=== PATIENT | male | born 1945 | race Caucasian/White ===

== ENCOUNTER 2018-02-05 16:29 | Inpatient (IN) | payer MEDICARE ==
[2018-02-05] MEDS ORDERED: Acetaminophen 325 MG TAB PO PRN (21:08)
[2018-02-05] MEDS ORDERED: Ondansetron HCl/PF 4 MG/2 ML Vial IVP PRN (21:08)
[2018-02-05] MEDS ORDERED: Ondansetron ODT 4 MG TAB PO PRN (21:08)
[2018-02-05 21:23] VITALS: BMI 26.2
--- NOTE | 2018-02-05 21:29 | PDOC.FPRHP ---
- History of Present Illness Chief Complaint: Life vest shocked him History of Present Illness: This is a 72 yo male with a PMH of CHF, HTN, DMII, hypothyroidism, chronic afib who present as a direct admit with a CC of life vest shocking him. Pt reports he had no warning and is vest shocked him during rehab. He had an episode of LOC after the shock. Currently he is not complaining of chest pain. He does report some SOB with associated productive cough. Pt. was recently 02/03 discharged from [facility] in [place] for HUS 2/2 E. coli 157. ED Course: Per report, pt. received Rocephin in the ER as well as some potassium supplementation due to hypokalemia of 2.8. - Allergies/Adverse Reactions Allergies Allergy/AdvReac Type Severity Reaction Status Date / Time No Known Allergies Allergy Verified 02/05/18 20:59 - Home Medications Medication Instructions Recorded Confirmed Type amLODIPine/Atorvastatin [Caduet] 1 tablet PO QPM 05/21/15 02/05/18 History Levemir Flexpen [Levemir FlexPen] 13 unit SC HS 05/23/15 02/05/18 History metFORMIN HCl [metFORMIN HCl ER] 1,000 mg PO BID #0 05/24/15 02/05/18 Rx Aspirin [Aspirin Chewable Tablet] 81 mg PO DAILY #0 tab 05/26/15 02/05/18 Rx Captopril [Capoten] 50 mg PO TID #0 tab 05/26/15 02/05/18 Rx Dronedarone HCl [Multaq] 400 mg PO BID-WM #0 tab 05/26/15 02/05/18 Rx Levothyroxine Sodium [Synthroid] 50 mcg PO 0600 #0 tab 05/26/15 02/05/18 Rx Nitroglycerin [Nitrostat] 0.4 mg SL Q5MIN PRN #0 tab 05/26/15 02/05/18 Rx Repaglinide [Prandin] 2 mg PO TID-WM #0 tab 05/26/15 02/05/18 Rx Levemir Flexpen [Levemir FlexPen] 14 units SC DAILY 02/05/18 02/05/18 History Warfarin Sodium [Coumadin] 2.5 mg PO ASDIR 02/05/18 02/05/18 History Warfarin Sodium [Coumadin] 5 mg PO MWF 02/05/18 02/05/18 History - History PMHx: HTN, CHF, chronic afib, DM II, hypothyroidism, normocytic anemia PSHx: Heart cath FHx: noncontributory Social: Pt. denies smoking, he quit alcohol 10 years ago, denies drugs - Review of Systems General: denies: fever/chills, weight/appetite/sleep changes Eyes: denies: eye pain, vision changes ENT: denies: nasal congestion, rhinorrhea Respiratory: reports: cough, shortness of breath. denies: congestion, exercise intolerance Cardiovascular: reports: edema (Improving from hospital stay). denies: chest pain, palpitation Gastrointestinal: denies: nausea, vomiting, diarrhea, constipation, abdominal pain Genitourinary: denies: incontinence, dysuria Skin: denies: rashes, lesions Musculoskeletal: denies: pain, tenderness Neurological: denies: numbness, syncope Psychological: denies: anxiety, depression - Vital signs BP: 151/72 HR: 66 RR: 20 Tmax: 98.2 Pox: 96% on 2L Wt: 82.69 - Physical Exam Constitutional: NAD, awake, alert and oriented, well developed HEENT: normocephalic and atraumatic, EOMI, MMM Neck: supple, FROM Chest: no-tender to palpation, no lesions Heart: RRR, normal S1/S2, other (bilateral pitting edema to knee) -Heart: 2/6 systolic murmur heard at left sternal border Lungs: no respiratory distress, good air movement, other (Crackles heard in bilateral lung bases) Abdomen: soft, non-tender, bowel sounds present, no masses/distention Musculoskeletal: normal structure, ROM grossly normal Neurological: no focal deficit, CN II-XII intact Skin: capillary refill <2 seconds, other (raised lesion on left forearm) Heme/Lymphatic: no unusual bruising or bleeding, no purpura Psychiatric: normal mood and affect, good judgment and insight, intact recent and remote memory FMR H&P: Results - Labs Result Diagrams: 02/05/18 22:07 FMR H&P: A/P - Problem List (1) Chronic a-fib Current Visit: Yes Status: Acute Code(s): I48.2 - CHRONIC ATRIAL FIBRILLATION (2) Productive cough Current Visit: Yes Status: Acute Code(s): R05 - COUGH (3) CHF (congestive heart failure) Current Visit: Yes Status: Acute Code(s): I50.9 - HEART FAILURE, UNSPECIFIED (4) DMII (diabetes mellitus, type 2) Current Visit: Yes Status: Acute (5) Hypothyroidism Current Visit: Yes Status: Acute Code(s): E03.9 - HYPOTHYROIDISM, UNSPECIFIED (6) HTN (hypertension) Current Visit: Yes Status: Acute Code(s): I10 - ESSENTIAL (PRIMARY) HYPERTENSION (7) Normocytic anemia Current Visit: Yes Status: Acute Code(s): D64.9 - ANEMIA, UNSPECIFIED - Plan This is a 72 yo male with a PMH of CHF, HTN, DMII, hypothyroidism, chronic afib Chronic afib with run of vfib s/p life vest defibrillation -Admit to Tele. Consult Dr. Mercado in the AM. Pending INR and continuing home warfarin. Pt. is currently NSR in the 60s. Productive Cough Likely CHF vs HAP -Pt. was discharged from hospital 2 days ago. There is some concern for HAP however pt. has crackle in bilateral lung bases consistent with fluid overload. We are obtaining procalcitonin, CXR, and BNP. We will adjust treatment course based on labs and change in clinical picture. We are currently giving 40 lasix once. EF was 20-25 at last echo DMII -Continue home meds, ACHS accuchecks, SSI mild HTN -Continue home meds Hypothyroidism -Continue home meds, we are getting a TSH Normocytic anemia -Aware, will monitor. AM CBC Hypokalemia -Likely 2/2 lasix, repeating labs and supplementing Hypomagnemia -Repeating labs and supplementing Code: Full Prophylaxis: none Family: none at bedside Disposition: home in 1-2 days FMR H&P: Upper Level - Pertinent history 72 yo WM PMH HFrEF (20-25%), CAD, HTN, HLD, and recent ETEC 0157 E. coli infection with HUS and multiorgan failure treated at [facility] in [place]. He was d/c to SNF on 02/03/18. Presents as transfer from outside hospital after he was found down at SNF. Patient complained of LifeVest firing. Interrogation of lifevest revealed 30 seconds of v-fib followed by shock. He was transferred to higher level of care for evaluation for AICD placement. He was also found to have bilateral PNA vs fluid on CXR. Currently reports sputum production and cough. - Pertinent findings Vitals: WNL except BP 151/72 and SpO2 98%/2L. GEN: NAD CV: RRR no murmur, Pulm: crackles lung bases bilaterally, normal effort Extremities: 1+ edema to midcalf, Labs: Outside labs reviewed: Trop 0.22 x2, WBC 13.4, K 2.8, Mg 1.6, CXR: report reviewed but images unavailable - Plan Date/Time: 02/05/182121 I, Yonatan Smith MD, have evaluated this patient and agree with findings/plan as outlined by automotive internet sales consultant resident. Pertinent changes/additions are listed here. 1. V-fib s/p Life Vest cardioversion- monitor tele overnight, continue lifevest , consult cardiology in morning for further evaluation, will start amiodarone if has recurrent runs of v-fib/v-tach, 2. Acute on Chronic HFrEF- fluid restrict, repeat labs, repeat EKG, repeat CXR, Lasix 40 mg IVP, 3. Possible HAP- check procalcitonin, repeat CBC, consider abx coverage pending result of labs 4. CAD- home meds, tele, cards consult 5. DM- home meds, ACHS checks, SSI 6. CKD- repeat BMP, monitor 7. Diet: HH, fluid restrict 1800 mL/day, NPO at 0000, 8. Code: Full Discussed with Dr. Reynolds. Attending Addendum - Attending Addendum Date/Time: 02/05/18 0725 I personally evaluated the patient and discussed the management with Dr. Daley /Luis. I agree with the History, Examination, Assessment and Plan documented above with any addition or exceptions noted below. Patient is 72 yo M with PMHx sCHF with EF 20-25% per patient, T2DM, cAfib, HTN, Hypothyroidism who is presenting as transfer from outside hospital after a discharge of his Life Vest. Patient recently discharged from hospital in [place] for which he was treated for HUS due to E. coli per the patient. He was also diagnosed with sCHF during that hospitalization which appears to be somewhat new since his last heart cath at this institution in 2016 showed normal EF. Patient was at rehab facility this morning talking to on the phone when he had LOC and staff noted a discharge of his life vest. Interrogation confirmed that patient had episode of Vfib which led to the discharge of the Life Vest. Currently, patient denies any complaints. Reports that he does not remember the event, and denies any preceding chest pain, palpitations. Reports that he feels significantly better at this time than he did during previous hospitalization. On exam, he has mild edema in b/l LE and has crackles b/l lower lung hall. Heart is RRR on auscultation, and telemetry strip shows what appears to be NSR. Labs have been repeated here and shows mild Cr elevation, indeterminate troponin , and elevated BNP. Procalcitonin is 0.18, and repeat CXR pending. Patient has been admitted to telemetry for episode of Vfib s/p external defibrillation. This is likely due to ventricular ectopy associated with his sCHF. His sample sewer, Dr. Mercado, will be consulted in the AM unless he has a recurrent abnormal rhythm overnight. Continue heart failure meds at current time and adjust as needed to maximally medically optimize. Consider addition of Aldactone prior to discharge as patient did have hypokalemia at OSH that could precipitate dysrhythmias. Will check electrolytes and replete as needed. Repeating CXR, but with low PCT, do not have high suspicion for PNA. Will diurese as he appears mildly volume overloaded. Further mgmt per clinical course , but anticipate >2 days hospitalization.
[2018-02-05] MEDS ORDERED: Nitroglycerin 0.4 MG TAB (25 Tab Bottle) SL PRN (21:41)
[2018-02-05] MEDS ORDERED: Furosemide 40 MG/4 ML VIAL SLOW IVP SCH (21:45)
[2018-02-05] MEDS ORDERED: Dextrose 50% Abboject 50 ML SYRINGE SLOW IVP PRN (22:13)
[2018-02-05] MEDS ORDERED: Dextrose 5% in Water 1,000 ML IV PRN (22:13)
[2018-02-05 22:29] LABS: INR-International Normal Ratio 1.3; Prothrombin Time 15.8 SEC (12.0-14.7)
[2018-02-05 22:37] LABS: Anion Gap 16 mmol/L (10-20); BUN (Urea Nitrogen) 39 mg/dL (8.4-25.7); Calc. Creatinine Clearance 47 mL/min (70-130); Calcium 8.8 mg/dL (7.8-10.44); Carbon Dioxide 33 mmol/L (23-31); Chloride 93 mmol/L (98-107); Estimated GFR-MDRD 41; Glucose 195 mg/dL (83-110); Potassium 3.5 mmol/L (3.5-5.1); Sodium 138 mmol/L (136-145)
[2018-02-05 22:44] LABS: CKMB 1.6 ng/mL (0-6.6); Troponin I 0.171 ng/mL (< 0.028)
[2018-02-05] MEDS ORDERED: Benzonatate 100 MG CAP PO PRN (22:55)
[2018-02-05] MEDS ORDERED: Magnesium 2 GM/50 ML 2 GM in Premix Bag 1 BAG IVPB SCH (23:00)
[2018-02-06] MEDS: Levothyroxine Sodium 50 MCG TAB PO SCH (05:20)
--- NOTE | 2018-02-06 05:54 | PDOC.FM ---
- Subjective Subjective: Mr. Damian is resting comfortably in bed without complaints at this time. He denies shortness of breath, chest pain, or palpitations. He does report weakness from previous hospitalization. - Objective Vital Signs & Weight: Vital Signs (12 hours) Temp Pulse Resp BP BP Pulse Ox 02/06/18 04:43 98.0 F 62 14 147/67 H 93 L 02/05/18 23:16 96 02/05/18 20:33 98.2 F 66 20 151/72 H 96 Weight Weight 81.737 kg I&O: 02/04/18 02/05/18 02/06/18 06:59 06:59 06:59 Intake Total 410 Output Total 875 Balance -465 Result Diagrams: 02/06/18 05:28 <Angel Dsouza - Last Filed: 02/06/18 09:08> - Objective Vital Signs & Weight: Vital Signs (12 hours) Temp Pulse Pulse Pulse Resp BP BP 02/06/18 11:30 64 80 145/67 H 02/06/18 11:02 68 74 140/64 02/06/18 08:59 61 130/62 02/06/18 07:25 97.5 F L 61 20 02/06/18 04:43 98.0 F 62 14 BP BP BP Pulse Ox Pulse Ox 02/06/18 11:30 147/67 H 02/06/18 11:02 141/64 H 92 L 02/06/18 08:59 02/06/18 07:25 130/62 98 02/06/18 04:43 147/67 H 93 L Weight Weight 81.737 kg I&O: 02/05/18 02/06/18 02/07/18 06:59 06:59 06:59 Intake Total 410 Output Total 875 Balance -465 Result Diagrams: 02/06/18 05:28 <Rae Martinez - Last Filed: 02/06/18 15:01> Phys Exam - Physical Examination Constitutional: NAD HEENT: moist MMs Respiratory: no wheezing, no rales, no rhonchi, clear to auscultation bilateral Cardiovascular: RRR, no significant murmur, no rub Gastrointestinal: soft, non-tender, no distention Musculoskeletal: pulses present, edema present Neurological: non-focal, normal sensation, moves all 4 limbs Psychiatric: normal affect Skin: no rash <Angel Dsouza - Last Filed: 02/06/18 09:08> Dx/Plan (1) Chronic a-fib Code(s): I48.2 - CHRONIC ATRIAL FIBRILLATION Status: Acute (2) CHF (congestive heart failure) Code(s): I50.9 - HEART FAILURE, UNSPECIFIED Status: Acute (3) DMII (diabetes mellitus, type 2) Status: Acute (4) HTN (hypertension) Code(s): I10 - ESSENTIAL (PRIMARY) HYPERTENSION Status: Acute (5) Hypothyroidism Code(s): E03.9 - HYPOTHYROIDISM, UNSPECIFIED Status: Acute (6) Normocytic anemia Code(s): D64.9 - ANEMIA, UNSPECIFIED Status: Acute (7) Hypokalemia Code(s): E87.6 - HYPOKALEMIA Status: Acute (8) Hypomagnesemia Code(s): E83.42 - HYPOMAGNESEMIA Status: Acute (9) Physical deconditioning Code(s): R53.81 - OTHER MALAISE Status: Acute - Plan Plan: Chronic afib with run of vfib s/p life vest defibrillation -NSR overnight, continue to monitor on tele -Consult cardiology today -Subtherapeutic INR, hold warfarin for now, await cards recs. Productive Cough Likely CHF vs HAP -Pt. was discharged from hospital 2 days ago. -procalcitonin neg - CXR pending -BNP elevated -s/p 40 lasix once - EF was 20-25 at last echo DMII -Continue home meds, ACHS accuchecks, SSI mild HTN -Continue home meds Hypothyroidism -Continue home meds, TSH in range Normocytic anemia -Aware, will monitor. AM CBC Hypokalemia -Likely 2/2 lasix, repeating labs and supplementing Hypomagnemia -Repeating labs and supplementing Deconditioning - recent extensive hospitalization - begin walking program dispo: consult cards today, continue to monitor on telemetry <Angel Dsouza - Last Filed: 02/06/18 09:08> Attending Addendum - Attending Addendum Date/Time: 02/06/18 7186 I personally evaluated the patient and discussed the management with Dr. Dsouza I agree with the History, Examination, Assessment and Plan documented above with any addition or exceptions noted below- Patient denies any complaints currently. No further shocks. Afebrile VSS. A/P: 1) V-fib s/p shock from lifevest- Cardiology and EP consult for further evaluation. 2) H/o A-fib- currently in sinus rhythm; continue home meds. 3) Hypokalemia- replace K+. 4) Hypothyroidism- continue home med. <Rae Martinez - Last Filed: 02/06/18 15:01>
[2018-02-06 05:56] LABS: Anion Gap 13 mmol/L (10-20); BUN (Urea Nitrogen) 37 mg/dL (8.4-25.7); Calc. Creatinine Clearance 48 mL/min (70-130); Calcium 8.6 mg/dL (7.8-10.44); Carbon Dioxide 35 mmol/L (23-31); Chloride 93 mmol/L (98-107); Estimated GFR-MDRD 42; Glucose 135 mg/dL (83-110); Potassium 3.3 mmol/L (3.5-5.1); Sodium 138 mmol/L (136-145)
--- NOTE | 2018-02-06 08:25 | RAD ---
PORTABLE CHEST: Date: 02/05/18 HISTORY: Shortness of breath. Assess for pneumonia. COMPARISON: 05/29/13. FINDINGS: Heart size upper normal and stable. There is opacity in both lung bases obscuring the CP angles. Find ings suggest small effusions and bibasilar atelectasis or infiltrates. The mid and upper lung hall appear clear. Vascular markings upper normal. IMPRESSION: Evidence of small bilateral effusions and bibasilar atelectasis or infiltrates. POS: [facility]
[2018-02-06] MEDS: Dronedarone HCl 400 MG TAB PO SCH ×2 (08:59→16:09)
[2018-02-06] MEDS: Potassium Chloride 20 MEQ TAB PO SCH ×2 (08:59→16:09)
[2018-02-06] MEDS: guaiFENesin ER 600 MG TAB PO SCH ×2 (09:00→19:59)
[2018-02-06] MEDS: metFORMIN XR 500 MG TAB PO SCH ×2 (09:00→19:55)
[2018-02-06] MEDS ORDERED: LEVEMIR SC SCH (09:00)
[2018-02-06] MEDS: Insulin Glargine 14 UNITS in Pre-Filled Syringe 1 EACH SC SCH (09:01)
[2018-02-06] MEDS: HumaLOG 300 UNITS/3 ML VIAL SC PRN ×2 (12:41→17:50)
[2018-02-06] MEDS: Amlodipine 10 MG TAB PO SCH (19:56)
[2018-02-06] MEDS: Atorvastatin Calcium 40 MG TAB PO SCH (19:57)
[2018-02-06] MEDS: Insulin Glargine 13 UNITS in Pre-Filled Syringe 1 EACH SC SCH (20:06)
--- NOTE | 2018-02-06 20:12 | CON ---
HISTORY: The patient is a 72-year-old gentleman with a history of coronary artery disease who recently developed severe E. coli sepsis and had a LifeVest placed, which yesterday fired. The patient was seen in 2015 and was found to have a severe blockage in his proximal LAD. The patient subsequently underwent PTCA and stent placement. The patient has subsequently done well. He has been free of chest discomfort. He has had a followup echocardiogram in 03/2017, which revealed normal left ventricular systolic function. The patient also has a history of atrial fibrillation and is on chronic anticoagulation therapy. The patient was in his usual state of health when he developed a severe Escherichia coli sepsis. The patient developed renal failure and a cardiomyopathy. The patient had a prolonged hospitalization including renal failure, which nearly required dialysis. The patient recovered from this. He was noted to have a decreased left ventricular function and a ZOLL LifeVest was placed. The patient went home and yesterday the defibrillator fired. The patient denied having any chest discomfort or palpitations. PAST MEDICAL HISTORY: 1. Coronary artery disease. 2. Cardiomyopathy. 3. Atrial fibrillation. 4. Hypertension. 5. Atrial fibrillation. 6. Cerebrovascular disease. 7. Diabetes mellitus. 8. Gout. 9. Thyroid disorder. PAST SURGICAL HISTORY: None. SOCIAL HISTORY: Nonsmoker. FAMILY HISTORY: Positive family history of coronary artery disease. ALLERGIES: No known drug allergies. MEDICATIONS: Metformin 1000 b.i.d., Caduet 10/40 daily, Coumadin 2.5 at bedtime , warfarin alternating with 5 mg, Prandin 2 t.i.d., Synthroid 50 daily, Multaq 400 b.i.d. and aspirin 81 daily. REVIEW OF SYSTEMS: Noticeable for weakness and dyspnea. PHYSICAL EXAMINATION: GENERAL: This is a well-developed gentleman in no acute distress. VITAL SIGNS: Blood pressure was 141/64. NECK: No jugular distention, no carotid bruits. LUNGS: Clear to auscultation. HEART: Regular rate and rhythm, normal S1, S2 with a 2/6 murmur. ABDOMEN: Nondistended. EXTREMITIES: Showed trace edema. LABORATORY: Sodium 138, potassium 3.5, chloride 93, bicarbonate 33, BUN 39, creatinine 1.67. Glucose 242. INR was 1.3. EKG revealed normal sinus rhythm with first degree AV block, nonspecific ST-T wave abnormality. His white blood count was 13.7, hemoglobin 9.5, hematocrit 29.2 and his platelets were 316. IMPRESSION: 1. Status post AICD firing. 2. Cardiomyopathy. 3. History of percutaneous transluminal coronary angioplasty and stent placement. 4. History of hypertension. 5. Severe E. coli sepsis. 6. Diabetes mellitus. This unfortunate gentleman. This gentleman has developed a severe cardiomyopathy since he had a recent and prolonged episode of septic shock. The patient had a LifeVest placed which fired as he went into ventricular fibrillation. From a cardiac standpoint, we will ask EP to evaluate. We will follow this patient with you through his hospitalization. LUCI
[2018-02-06] MEDS ORDERED: Non-Formulary Item 1 EACH (Amlodipine/Atorvastatin [Caduet] 1 TABLET) PO SCH (21:00)
[2018-02-06] MEDS ORDERED: INSULIN DETEMIR SC SCH (21:00)
[2018-02-07] MEDS: Levothyroxine Sodium 50 MCG TAB PO SCH (06:02)
[2018-02-07 06:15] LABS: Anion Gap 15 mmol/L (10-20); BUN (Urea Nitrogen) 35 mg/dL (8.4-25.7); Calc. Creatinine Clearance 69 mL/min (70-130); Calcium 8.6 mg/dL (7.8-10.44); Carbon Dioxide 32 mmol/L (23-31); Chloride 97 mmol/L (98-107); Estimated GFR-MDRD 38; Glucose 114 mg/dL (83-110); Potassium 3.8 mmol/L (3.5-5.1); Sodium 140 mmol/L (136-145)
--- NOTE | 2018-02-07 06:21 | PDOC.FM ---
- Subjective Subjective: Mr. Damian is resting comfortably in bed with his present. He has no complaints and has been ambulating frequently. Cardiology told him that they were going to get an echo, cath, and consult EP. He denies cough, SOB, or CP - Objective Vital Signs & Weight: Vital Signs (12 hours) Temp Pulse Resp BP BP Pulse Ox 02/07/18 04:00 98.3 F 117 H 20 134/76 95 02/06/18 19:59 81 130/62 02/06/18 19:56 81 130/62 02/06/18 19:50 98.1 F 81 18 130/62 95 Weight Weight 127.051 kg I&O: 02/05/18 02/06/18 02/07/18 06:59 06:59 06:59 Intake Total 410 1210 Output Total 875 1175 Balance -465 35 Result Diagrams: 02/07/18 05:07 02/07/18 05:07 <Angel Dsouza - Last Filed: 02/07/18 09:09> - Objective Vital Signs & Weight: Vital Signs (12 hours) Temp Pulse Resp BP BP BP Pulse Ox 02/07/18 20:15 68 129/67 02/07/18 16:15 98.6 F 68 16 145/65 H 94 L 02/07/18 12:41 98.6 F 70 17 117/59 L 96 02/07/18 09:19 69 02/07/18 09:12 98.8 F 69 17 147/68 H 95 Weight Weight 127.051 kg I&O: 02/06/18 02/07/18 02/08/18 06:59 06:59 06:59 Intake Total 410 1210 1200 Output Total 875 1175 1150 Balance -465 35 50 Result Diagrams: 02/07/18 05:07 02/07/18 05:07 <Rae Martinez - Last Filed: 02/07/18 21:15> Phys Exam - Physical Examination Constitutional: NAD HEENT: moist MMs Respiratory: no wheezing, no rales, no rhonchi, clear to auscultation bilateral Cardiovascular: RRR, no significant murmur, no rub Gastrointestinal: soft, non-tender, no distention Musculoskeletal: no edema, pulses present Neurological: non-focal Psychiatric: normal affect Skin: no rash <Angel Dsouza - Last Filed: 02/07/18 09:09> Dx/Plan (1) Chronic a-fib Code(s): I48.2 - CHRONIC ATRIAL FIBRILLATION Status: Acute (2) CHF (congestive heart failure) Code(s): I50.9 - HEART FAILURE, UNSPECIFIED Status: Acute (3) DMII (diabetes mellitus, type 2) Status: Acute (4) HTN (hypertension) Code(s): I10 - ESSENTIAL (PRIMARY) HYPERTENSION Status: Acute (5) Hypothyroidism Code(s): E03.9 - HYPOTHYROIDISM, UNSPECIFIED Status: Acute (6) Normocytic anemia Code(s): D64.9 - ANEMIA, UNSPECIFIED Status: Acute (7) Hypokalemia Code(s): E87.6 - HYPOKALEMIA Status: Resolved (8) Hypomagnesemia Code(s): E83.42 - HYPOMAGNESEMIA Status: Resolved (9) Physical deconditioning Code(s): R53.81 - OTHER MALAISE Status: Acute - Plan Plan: Chronic afib with run of vfib s/p life vest defibrillation -NSR overnight, continue to monitor on tele -Consult EP today -Subtherapeutic INR, hold warfarin for now, await cards recs. Productive Cough Likely CHF vs HAP -Pt. was discharged from hospital 2 days ago. -procalcitonin neg - CXR effusions vs infiltrates -BNP elevated -s/p 40 lasix once - EF was 20-25 at last echo - symptoms improved, most likely atelectasis - incentive spirometry DMII -Continue home meds, ACHS accuchecks -increase ss to moderate HTN -Continue home meds Hypothyroidism -Continue home meds, TSH in range Normocytic anemia -Aware, will monitor. AM CBC Elevated BUN/Cr - likely secondary to recent hosp. for HUS e. coli - daily BMP to monitor Hypokalemia, resolved -Likely 2/2 lasix, supplemented Hypomagnemia, resolved Deconditioning - recent extensive hospitalization - begin walking program dispo: consult EP today, order IS, continue to monitor on telemetry <Angel Dsouza - Last Filed: 02/07/18 09:09> Attending Addendum - Attending Addendum Date/Time: 02/07/182110 I personally evaluated the patient and discussed the management with Dr. Dsouza I agree with the History, Examination, Assessment and Plan documented above with any addition or exceptions noted below- Patein5 without complaints. Denies any chest pain. Afebrile VSS. A/P: 1) V-fib- no further episodes. Plan for EP consult. Appreciate cardiology assistance. 2) HFrEF- continue current meds. 3) DM- continue current meds. <Rae Martinez - Last Filed: 02/07/18 21:15>
[2018-02-07 07:30] LABS: #Basophils 0.1 thou/uL (0.0-0.2); #Eosinphils 0.3 thou/uL (0.0-0.7); #Lymphocytes 1.9 thou/uL (1.20-3.40); #Neutrophils 6.5 thou/uL (1.40-6.50); %Basophils 0.7 % (0.0-1.0); %Eosinophils 3.5 % (0.0-10.0); %Lymphocytes 19.7 % (21.0-51.0); %Monocytes 9.7 % (0.0-10.0); %Neutrophils 66.3 % (42.0-75.0); Hemoglobin 8.7 g/dL (14.0-18.0); Mean Corpuscular HGB CONC 30.9 g/dL (32.0-36.0); Mean Corpuscular Hemoglobin 29.8 pg (27.0-31.0); Mean Corpuscular Volume 96.7 fL (78.0-98.0); Mean Platelet Volume 8.5 fL (7.4-10.4); Platelet Count 364 thou/uL (130-400); RBC Distribution Width 14.2 % (11.5-14.5); Red Blood Cell (RBC) Count 2.92 mill/uL (4.70-6.10); White Blood Cell (WBC) Count 9.8 thou/uL (4.8-10.8)
[2018-02-07] MEDS: guaiFENesin ER 600 MG TAB PO SCH ×2 (09:19→20:15)
[2018-02-07] MEDS: Potassium Chloride 20 MEQ TAB PO SCH ×2 (09:20→16:22)
[2018-02-07] MEDS: Dronedarone HCl 400 MG TAB PO SCH (09:20)
[2018-02-07] MEDS: Insulin Glargine 14 UNITS in Pre-Filled Syringe 1 EACH SC SCH (09:25)
[2018-02-07] MEDS ORDERED: Insulin Regular 300 UNITS/3 ML VIAL SC PRN (09:41)
[2018-02-07] MEDS: metFORMIN XR 500 MG TAB PO SCH ×2 (09:59→21:56)
[2018-02-07] MEDS: Insulin Regular 300 UNITS/3 ML VIAL SC PRN (12:36)
[2018-02-07] MEDS: Carvedilol 6.25 MG TAB PO SCH (16:21)
[2018-02-07] MEDS: Amiodarone 200 MG TAB PO SCH (20:15)
[2018-02-07] MEDS: Atorvastatin Calcium 40 MG TAB PO SCH (20:15)
[2018-02-07] MEDS: Amlodipine 10 MG TAB PO SCH (20:15)
[2018-02-07] MEDS: Insulin Glargine 13 UNITS in Pre-Filled Syringe 1 EACH SC SCH (21:25)
--- NOTE | 2018-02-08 05:59 | PDOC.FM ---
- Subjective Subjective: Mr. Damian is resting comfortably in bed, he reports frequent ambulation and has no complaints. He denies chest pain, shortness of breath or palpitations. He reports that Cardiology would like to defer his [facility] to a future date considering his current kidney function. - Objective Vital Signs & Weight: Vital Signs (12 hours) Temp Pulse Resp BP BP Pulse Ox 02/08/18 04:00 98.1 F 68 20 113/59 L 92 L 02/07/18 20:15 68 129/67 02/07/18 19:50 95 02/07/18 19:45 98.4 F 68 16 129/67 95 Weight Weight 127.051 kg I&O: 02/06/18 02/07/18 02/08/18 06:59 06:59 06:59 Intake Total 410 1210 1200 Output Total 875 1175 1150 Balance -465 35 50 Result Diagrams: 02/07/18 05:07 02/08/18 05:17 <Angel Dsouza - Last Filed: 02/08/18 08:09> - Objective Vital Signs & Weight: Vital Signs (12 hours) Temp Pulse Resp BP BP BP Pulse Ox 02/08/18 12:00 97.9 F 55 L 18 136/61 92 L 02/08/18 10:41 140/62 02/08/18 09:07 140/62 02/08/18 08:00 98.5 F 74 18 140/62 94 L 02/08/18 04:00 98.1 F 68 20 113/59 L 92 L Weight Weight 82.146 kg I&O: 02/07/18 02/08/18 02/09/18 06:59 06:59 06:59 Intake Total 1210 1330 240 Output Total 1175 1575 Balance 35 -245 240 Result Diagrams: 02/08/18 12:36 02/08/18 12:36 <Rae Martinez - Last Filed: 02/08/18 15:11> Phys Exam - Physical Examination Constitutional: NAD HEENT: moist MMs Respiratory: clear to auscultation bilateral Cardiovascular: RRR, no significant murmur, no rub Gastrointestinal: non-tender, no distention Musculoskeletal: pulses present, edema present (minor, similar to previous days ) Neurological: moves all 4 limbs Psychiatric: normal affect Skin: no rash, normal turgor <Angel Dsouza - Last Filed: 02/08/18 08:09> Dx/Plan (1) Chronic a-fib Code(s): I48.2 - CHRONIC ATRIAL FIBRILLATION Status: Acute (2) CHF (congestive heart failure) Code(s): I50.9 - HEART FAILURE, UNSPECIFIED Status: Acute (3) DMII (diabetes mellitus, type 2) Status: Acute (4) HTN (hypertension) Code(s): I10 - ESSENTIAL (PRIMARY) HYPERTENSION Status: Acute (5) Hypothyroidism Code(s): E03.9 - HYPOTHYROIDISM, UNSPECIFIED Status: Acute (6) Normocytic anemia Code(s): D64.9 - ANEMIA, UNSPECIFIED Status: Acute (7) Hypokalemia Code(s): E87.6 - HYPOKALEMIA Status: Resolved (8) Hypomagnesemia Code(s): E83.42 - HYPOMAGNESEMIA Status: Resolved (9) Physical deconditioning Code(s): R53.81 - OTHER MALAISE Status: Acute - Plan Plan: Chronic afib with run of vfib s/p life vest defibrillation -NSR overnight, continue to monitor on tele -Left heart cath deferred to a future date -Subtherapeutic INR, hold warfarin for now, await cards recs. Productive Cough Likely CHF vs HAP -Pt. was discharged from hospital 2 days ago. -procalcitonin neg - CXR effusions vs infiltrates -BNP elevated -s/p 40 lasix once - EF was 20-25 at last echo - symptoms improved, most likely atelectasis - incentive spirometry DMII -Continue home meds, ACHS accuchecks -moderate SS HTN -Continue home meds Hypothyroidism -Continue home meds, TSH in range Normocytic anemia -Aware, will monitor. AM CBC Elevated BUN/Cr - likely secondary to recent hosp. for HUS e. coli - daily BMP to monitor Hypokalemia, resolved -Likely 2/2 lasix, supplemented Hypomagnemia, resolved Deconditioning - recent extensive hospitalization - begin walking program dispo: EP to evaluate today, possible AICD insertion tomorrow, continue to monitor on telemetry <Angel Dsouza - Last Filed: 02/08/18 08:09> Attending Addendum - Attending Addendum Date/Time: 02/08/18 0103 I personally evaluated the patient and discussed the management with Dr. Dsouza I agree with the History, Examination, Assessment and Plan documented above with any addition or exceptions noted below- Pateint without complaints. No chest pain or palpitations. Afebrile VSS. A/P: 1) V-fib s/p chock by lifevest- no further episodes of v-fib. EP consult placed and awaiting recommendations. 2 ) HFrEF- no evidence of overload at this time. May actually be volume depleted as evidenced by increased Creatinine. Hold lasix and captopril for now. 3) LEILANI - will hold carito, lasix, and metformin. Will give some gentle fluids and minotr ling exam and BMP. 4) Dm- controlled; continue sliding scale. <Rae Martinez - Last Filed: 02/08/18 15:11>
[2018-02-08] MEDS: Levothyroxine Sodium 50 MCG TAB PO SCH (06:06)
[2018-02-08 06:18] LABS: Anion Gap 13 mmol/L (10-20); BUN (Urea Nitrogen) 32 mg/dL (8.4-25.7); Calc. Creatinine Clearance 41 mL/min (70-130); Calcium 8.7 mg/dL (7.8-10.44); Carbon Dioxide 30 mmol/L (23-31); Chloride 101 mmol/L (98-107); Estimated GFR-MDRD 34; Glucose 123 mg/dL (83-110); Potassium 4.7 mmol/L (3.5-5.1); Sodium 139 mmol/L (136-145)
[2018-02-08] MEDS: Potassium Chloride 20 MEQ TAB PO SCH ×2 (09:06→17:58)
[2018-02-08] MEDS: Amiodarone 200 MG TAB PO SCH ×2 (09:06→20:21)
[2018-02-08] MEDS: metFORMIN XR 500 MG TAB PO SCH (09:06)
[2018-02-08] MEDS: guaiFENesin ER 600 MG TAB PO SCH ×2 (09:06→20:21)
[2018-02-08] MEDS: Carvedilol 6.25 MG TAB PO SCH ×2 (09:07→17:58)
[2018-02-08] MEDS: Insulin Glargine 14 UNITS in Pre-Filled Syringe 1 EACH SC SCH (09:07)
[2018-02-08] MEDS ORDERED: Carvedilol 6.25 MG TAB PO SCH (10:30)
[2018-02-08] MEDS ORDERED: Lactated Ringer's 250 ML IV SCH ×2 (10:45→11:00)
[2018-02-08] MEDS ORDERED: CEFAZOLIN/Water 2 GM/20 ML SYRINGE SLOW IVP SCH (12:30)
[2018-02-08 12:51] LABS: #Basophils 0.1 thou/uL (0.0-0.2); #Eosinphils 0.4 thou/uL (0.0-0.7); #Lymphocytes 1.8 thou/uL (1.20-3.40); #Monocytes 0.9 thou/uL (0.11-0.59); #Neutrophils 7.6 thou/uL (1.40-6.50); %Basophils 0.7 % (0.0-1.0); %Eosinophils 3.4 % (0.0-10.0); %Lymphocytes 16.7 % (21.0-51.0); %Monocytes 8.1 % (0.0-10.0); %Neutrophils 71.2 % (42.0-75.0); Hemoglobin 8.9 g/dL (14.0-18.0); Mean Corpuscular HGB CONC 30.7 g/dL (32.0-36.0); Mean Corpuscular Volume 97.8 fL (78.0-98.0); Mean Platelet Volume 8.6 fL (7.4-10.4); Platelet Count 409 thou/uL (130-400); RBC Distribution Width 14.1 % (11.5-14.5); Red Blood Cell (RBC) Count 2.98 mill/uL (4.70-6.10); White Blood Cell (WBC) Count 10.7 thou/uL (4.8-10.8)
[2018-02-08] MEDS: Insulin Regular 300 UNITS/3 ML VIAL SC PRN (13:02)
[2018-02-08 13:04] LABS: Anion Gap 14 mmol/L (10-20); BUN (Urea Nitrogen) 28 mg/dL (8.4-25.7); Calc. Creatinine Clearance 41 mL/min (70-130); Calcium 8.6 mg/dL (7.8-10.44); Carbon Dioxide 27 mmol/L (23-31); Chloride 101 mmol/L (98-107); Estimated GFR-MDRD 35; Glucose 184 mg/dL (83-110); Potassium 5.1 mmol/L (3.5-5.1); Sodium 137 mmol/L (136-145)
[2018-02-08] MEDS ORDERED: Communication Order-Pharmacy FS SCH (17:00)
--- NOTE | 2018-02-08 18:56 | CON ---
DATE OF CONSULTATION: 02/08/2018 ELECTROPHYSIOLOGY CONSULTATION REQUESTING PHYSICIAN: Dr. Mercado. REASON FOR REQUEST: Ventricular fibrillation. HISTORY OF PRESENT ILLNESS: Mr. Damian is a 72-year-old gentleman with history of coronary artery disease, status post previous stenting, history of stroke, paroxysmal atrial arrhythmia, hypertension , diabetes, who was admitted to the hospital after his LifeVest had fired. He was hospitalized elsew here for a severe infection including E. coli and cardiac arrest. A LifeVest was placed at that poin t. He reports he was talking on the phone in front of his and had syncope at that time. He was brought to the emergency room and was found to be in eventual interrogation of his LifeVest showed v entricular fibrillation. His electrocardiogram also showed what appeared to be QT prolongation at th at time. Currently, he denies chest pain or shortness of breath. PAST MEDICAL HISTORY: Significant for coronary artery disease, previous stenting. History of stroke without residual, paroxysmal atrial fibrillation, hypertension, diabetes, previous alcohol abuse. MEDICATIONS: At home include aspirin, Lipitor, amlodipine, captopril, metformin, insulin, Synthroid, Prandin, Multaq and insulin. FAMILY HISTORY: No early coronary artery disease, sudden cardiac . SOCIAL HISTORY: He previously drank to excess, but no longer drinks. He does not smoke, use illicit medications. REVIEW OF SYSTEMS: Reviewed. He denies nausea, vomiting, diarrhea, fevers, chills, change in vision or hearing HPI. PHYSICAL EXAMINATION: GENERAL: He is afebrile. Pulse is 85, blood pressure 136/64. HEENT: Pupils equal, round, react to light and accommodation. Extraocular movements are intact. No se midline. Septum, no rhinorrhea or epistaxis. Throat, no erythema or exudate. NECK: Supple without lymphadenopathy, JVD or goiter. HEART: Regular rate and rhythm without murmur, gallop or rub. LUNGS: Clear to auscultation and percussion bilaterally. ABDOMEN: Soft, nontender, nondistended. Present bowel sounds. EXTREMITIES: Without cyanosis, clubbing or edema. NEUROLOGIC: Cranial nerves II-XII grossly intact. Motor strength 5/5 throughout. EKG on admission sinus bradycardia at 56, incomplete left bundle branch block, a prolonged QT interva l. Review of his LifeVest reveals a ventricular fibrillation, no particular PVCs were noted before. IMPRESSION: 1. Ventricular fibrillation. 2. Previously reported preserved left ventricular ejection fraction. 3. Incomplete left bundle branch block. 4. Paroxysmal atrial arrhythmia. RECOMMENDATIONS: Mr. Damian has ventricular fibrillation. He does need further evaluation for cor onary artery disease. I noted he had previous significant stenoses and stenting. Based on this, I r ecommend cardiac catheterization. If he does not require significant intervention then placement of a dual chamber ICD should be performed.
[2018-02-08] MEDS: Insulin Glargine 13 UNITS in Pre-Filled Syringe 1 EACH SC SCH (20:22)
[2018-02-08] MEDS ORDERED: Sodium Chloride 0.45% 1,000 ML IV SCH (21:00)
--- NOTE | 2018-02-08 21:50 | PDOC.EVN ---
Event Note - Event Note Event Note: Residents paged at [phone]. Patient with new O2 requirement of 2L and complaint of orthopnea. He has HFrEF and home dose lasix held. On exam has crackles to mid lung b/l. Will give held dose lasix 40mg and continue to monitor for improvement.
[2018-02-08] MEDS ORDERED: Furosemide 40 MG/4 ML VIAL SLOW IVP SCH (22:00)
[2018-02-09] MEDS: Levothyroxine Sodium 50 MCG TAB PO SCH (05:27)
[2018-02-09] MEDS: guaiFENesin ER 600 MG TAB PO SCH (05:27)
[2018-02-09] MEDS: Carvedilol 6.25 MG TAB PO SCH (05:27)
[2018-02-09] MEDS: Amiodarone 200 MG TAB PO SCH (05:28)
--- NOTE | 2018-02-09 05:51 | PDOC.FM ---
- Subjective Subjective: Mr. Damian currently has no new complaints. Overnight he does report that he got a little short of breath when he walked around and then laid down. night team gave him 40mg lasix and his dyspnea improved. No other concerns overnight. He was told yesterday that he will be receiving his C today and AICD if all is clear. - Objective Vital Signs & Weight: Vital Signs (12 hours) Temp Pulse Resp BP BP BP Pulse Ox 02/09/18 04:00 98.7 F 61 18 159/68 H 92 L 02/09/18 00:00 99.1 F 52 L 18 124/60 97 02/08/18 20:20 98.3 F 68 16 156/72 H 92 L 02/08/18 17:58 156/69 H Weight Weight 82.146 kg I&O: 02/07/18 02/08/18 02/09/18 06:59 06:59 06:59 Intake Total 1210 1330 240 Output Total 1175 1575 Balance 35 -245 240 Result Diagrams: 02/08/18 12:36 02/09/18 05:02 <Angel Dsouza - Last Filed: 02/09/18 08:46> - Objective Vital Signs & Weight: Weight Weight 82.69 kg I&O: 02/09/18 02/10/18 02/11/18 06:59 06:59 06:59 Intake Total 640 Output Total 850 Balance -210 Result Diagrams: 02/08/18 12:36 02/09/18 05:02 <Erick Rivera - Last Filed: 02/10/18 16:38> Phys Exam - Physical Examination Constitutional: NAD HEENT: moist MMs Respiratory: no wheezing, no rales, no rhonchi, clear to auscultation bilateral Cardiovascular: RRR, no significant murmur Gastrointestinal: soft, non-tender Musculoskeletal: no edema (improved ) Neurological: non-focal, moves all 4 limbs Psychiatric: normal affect Skin: no rash <Angel Dsouza - Last Filed: 02/09/18 08:46> Dx/Plan (1) Chronic a-fib Code(s): I48.2 - CHRONIC ATRIAL FIBRILLATION Status: Acute (2) CHF (congestive heart failure) Code(s): I50.9 - HEART FAILURE, UNSPECIFIED Status: Acute (3) DMII (diabetes mellitus, type 2) Status: Acute (4) HTN (hypertension) Code(s): I10 - ESSENTIAL (PRIMARY) HYPERTENSION Status: Acute (5) Hypothyroidism Code(s): E03.9 - HYPOTHYROIDISM, UNSPECIFIED Status: Acute (6) Normocytic anemia Code(s): D64.9 - ANEMIA, UNSPECIFIED Status: Acute (7) Hypokalemia Code(s): E87.6 - HYPOKALEMIA Status: Resolved (8) Hypomagnesemia Code(s): E83.42 - HYPOMAGNESEMIA Status: Resolved (9) Physical deconditioning Code(s): R53.81 - OTHER MALAISE Status: Acute - Plan Plan: Chronic afib with run of vfib s/p life vest defibrillation -acute decompensation overnight, 250ml fluid bolus given yesterday in attempt to improved CrCl, lasix held and then given overnight in response to orthopnea and phys exam - otherwise NSR, improved orthopnea, continue to monitor on tele -possibly LHC and AICD placement today -Subtherapeutic INR, hold warfarin for now, await cards recs Productive Cough Likely CHF vs HAP -Pt. was discharged from hospital 2 days ago. -procalcitonin neg - CXR effusions vs infiltrates -BNP elevated - EF was 20-25 at last echo - symptoms improved, most likely atelectasis - incentive spirometry DMII -Continue home meds, ACHS accuchecks -moderate SS HTN -Continue home meds Hypothyroidism -Continue home meds, TSH in range Normocytic anemia -Aware, will monitor. AM CBC Elevated BUN/Cr - likely secondary to recent hosp. for HUS e. coli - captopril, lasix, metformin held - daily BMP to monitor Hypokalemia, resolved -Likely 2/2 lasix, supplemented Hypomagnemia, resolved Deconditioning - recent extensive hospitalization - begin walking program dispo: continue to monitor on telemetry, await recommendations <Angel Dsouza - Last Filed: 02/09/18 08:46> Attending Addendum - Attending Addendum Date/Time: 02/10/18 8247 I personally evaluated the patient and discussed the management with Dr. Dsouza. I agree with the History, Examination, Assessment and Plan documented above with any addition or exceptions noted below. <Erick Rivera - Last Filed: 02/10/18 16:38>
[2018-02-09 06:16] LABS: Anion Gap 12 mmol/L (10-20); BUN (Urea Nitrogen) 31 mg/dL (8.4-25.7); Calc. Creatinine Clearance 35 mL/min (70-130); Calcium 8.8 mg/dL (7.8-10.44); Carbon Dioxide 29 mmol/L (23-31); Chloride 102 mmol/L (98-107); Estimated GFR-MDRD 29; Glucose 141 mg/dL (83-110); Potassium 5.1 mmol/L (3.5-5.1); Sodium 138 mmol/L (136-145)
[2018-02-09] MEDS: Insulin Glargine 14 UNITS in Pre-Filled Syringe 1 EACH SC SCH (08:42)
[2018-02-09] MEDS: Potassium Chloride 20 MEQ TAB PO SCH (08:43)
[2018-02-09] MEDS ORDERED: Lidocaine 1% (PF) 30 ML VIAL ONE ×2 (08:50→08:59)
[2018-02-09] MEDS ORDERED: Midazolam HCl 2 mg/2 ml Vial ONE (09:26)
--- NOTE | 2018-02-09 09:50 | CON ---
DATE OF CONSULTATION: 02/08/2018 CONSULTING PHYSICIAN: Vernell Galarza MD REQUESTING PHYSICIAN: [facility]. REASON FOR CONSULTATION: Acute kidney injury. IMPRESSION: Acute on chronic kidney disease. This is likely hemodynamically mediated in the context of cardiac arrhythmia on a baseline residual chronic kidney disease that stemming from the recent di agnosis of hemolytic uremic syndrome/Escherichia coli. PLAN: 1. Hemodynamic stabilization strongly recommended. 2. If patient is to undergo cardiac catheterization, we will strongly recommend the lowest possible contrast and patient to receive contrast prophylaxis with IV fluid as patient stands at moderately si gnificant risk of worsening kidney dysfunction given the recent kidney injury in the context of hemol ytic uremic syndrome. 3. Renally dose all medications and avoid all potentially nephrotoxic agents. HISTORY OF PRESENT ILLNESS: History is that of a 72-year-old gentleman who presented here after his LifeVest shocked him. Patient of note was recently treated at an outside hospital for what he descri bed as hemolytic uremic syndrome. Patient claimed that his creatinine was up to 6-7 but was managed medically. No plasmapheresis according to the patient to the point that the creatinine had to go aakash n to 1.?. At this time, on presentation, patient noted with a creatinine of about 1.76 and has gradu ally gone up to 1.63 and gradually gone up to 1.9, thus the need for renal consultation. PAST MEDICAL HISTORY: Significant for recent diagnosis of hemolytic uremic syndrome in the context o f E. coli diarrhea, diabetes mellitus, hypertension, hypothyroidism, chronic atrial fibrillation, nor mocytic anemia. FAMILY HISTORY: None significantly related to presenting illness. SOCIAL HISTORY: Denies alcohol, tobacco, illicit drug abuse. Quit alcohol about 10 years ago. REVIEW OF SYSTEMS: As documented in the body of the history. All other systems were reviewed and fo und not to be significantly related to present illness. PHYSICAL EXAMINATION: GENERAL: The patient was found not to be in any obvious distress noted with the following vital sign s. VITAL SIGNS: Afebrile, temperature 98, pulse 63, blood pressure 156/69, respiratory rate 20, O2 sat of 92%. HEENT: Unremarkable. Moist oral mucosa. NECK: Supple. No conjunctival injection or icterus. CARDIOVASCULAR: First and second heart sounds were heard. RESPIRATORY SYSTEM: Clear to auscultation. DIGESTIVE SYSTEM: Revealed a benign abdomen with positive bowel sounds. EXTREMITIES: No peripheral edema. SKIN: No new gross rash. LYMPHATICS: No peripheral lymphadenopathy. SUMMARY: This is a 72-year-old gentleman with a recent diagnosis of hemolytic uremic syndrome with r esidual chronic kidney disease, stage 3, who presented here with cardiac arrhythmia, and now experien cing slight bump in creatinine. Thank you for this consultation. We will follow with you.
[2018-02-09] MEDS ORDERED: Acetaminophen/Codeine 30-300mg Tablet PO PRN ×2 (09:55)
[2018-02-09] MEDS ORDERED: traMADol HCl 50 MG TAB PO PRN (09:55)
[2018-02-09] MEDS ORDERED: Nitroglycerin 0.4 MG TAB (25 Tab Bottle) SL PRN (09:55)
[2018-02-09] MEDS ORDERED: Sodium Chloride 0.9% 200 ML IV SCH (10:00)
[2018-02-09 11:04] VITALS: BP 156/72; TEMP 97.2
[2018-02-09] MEDS ORDERED: Furosemide 40 MG/4 ML VIAL ONE (12:04)
[2018-02-09] MEDS ORDERED: Furosemide 40 MG/4 ML VIAL SLOW IVP SCH (12:15)
[2018-02-09] MEDS ORDERED: Morphine 4 MG/ML VIAL ONE (12:19)
[2018-02-09] MEDS ORDERED: Nitroglycerin 0.4 MG TAB (25 Tab Bottle) ONE (12:19)
[2018-02-09] MEDS ORDERED: Nitroglycerin 2% Ointment 1 INCH/1 GM Packet ONE (12:20)
[2018-02-09] MEDS ORDERED: Nitroglycerin 50 MG/250 ML BOT 250 ML IVPB SCH (12:30)
[2018-02-09 12:44] LABS: Actual Bicarbonate (HCO3a) 26.6 mEq/L (22-28); Base Excess (BEa) 0.2 mEq/L (-2.0 to +3.0); CO2 Tension 51.4 mmHg (35.0-45.0); Calcium, Ionized 1.17 mmol/L (1.12-1.30); Carboxyhemoglobin (COHb) 1.4 gm% (0.0-3.0); Hemoglobin (Hb) 10.8 g/dL (14.0-18.0); O2 Tension (PaO2) 50.4 mmHg (> 70.0); Potassium - ABG Lab 5.06 mmol/L (3.70-5.30); pH, Arterial 7.33 (7.35-7.45)
[2018-02-09 12:45] LABS: Puncture Site LRA
[2018-02-09] MEDS ORDERED: Nitroglycerin 0.4 MG TAB (25 Tab Bottle) SL SCH (13:00)
[2018-02-09] MEDS ORDERED: Morphine 4 MG/ML VIAL SLOW IVP SCH ×2 (13:00)
--- NOTE | 2018-02-09 13:50 | PDOC.EVN ---
Event Note - Event Note Event Note: Residents paged for increased shortness of breath. Arrived to patient room where blood pressure was elevated with systolic in the 190-180s, O2 saturation 75% increased work of breathing. Pt had just received a LHC and was on 100ml/hr fluid to attempt to wash out dye with concern for kidney function. Started on non rebreather 15L, [address] Mercado was notified. Nitro paste, 4mg morphine and another 40mg lasix was given. Respiratory status improved somewhat, Nitro drip started, transferred to the unit where bipap was started. pt blood pressure stabilized, urine output 250mL, saturation 100% on bipap. Prepped to transfer to [facility] via [facility].
--- NOTE | 2018-02-09 16:14 | PQF ---
CLINICAL DOCUMENTATION IMPROVEMENT CLARIFICATION FORM: ICD-10 Updated PLEASE DO AN ADDENDUM TO THE PROGRESS NOTE WITH ANY DOCUMENTATION UPDATES OR ADDITIONS AND CARRY THROUGH TO DC SUMMARY. THANK YOU. DATE: 02/09/18 ATTN: Dr. Dsouza/ Attending Dr. Martinez Please exercise your independent, professional judgment in responding to the clarification form. Clinical indicators are provided on the bottom of this form for your review Please check appropriate box(s): [ x] Acute Respiratory Failure: [ ] with Hypoxia [ ] with Hypercapnia [ ] Acute On Chronic Respiratory Failure: [ ] with Hypoxia [ ] with Hypercapnia [x ] Acute Respiratory Failure due to: flash pulmonary edema [ ] Other diagnosis [ ] Unable to determine In addition, please specify: Present on Admission (POA): [ ] Yes [ x] No [ ] Unable to determine For continuity of documentation, please document condition throughout progress notes and discharge summary. Thank You. CLINICAL INDICATORS - SIGNS / SYMPTOMS / LABS EVENT NOTE 02/09: BP ELEVATED WITH SYSTOLIC IN 190-180s, O2 SATURATION 75% INCREASED WORK OF BREATHING ABG: PH 7.33 PCO2 51.4 PO2 50.4 RISKS: H&P10 /7: HX CHF, HTN. CHRONIC A FIB. EVENT NOTE 02/09: PT HAD JUST RECEIVED A LHC & WAS ON 100ML/HR FLUID TO ATTEMPT TO WASH OUT DYE W/ CONCERN FOR KIDNEY FUNCTION. TREATMENT: EVENT NOTE 02/09: STARTED ON NON REBREATHER 15L, 40 MG LASIX PUSHED. NITRO DRIP STARTED, TRANSFERRED TO THE UNIT WHERE BIPAP WAS STARTED. Thank you, Laila (This form is maintained as a part of the permanent medical record) 2014 [employer], [email or web address]. All Rights Reserved Laila Mosley RN, BSN [email or web address] Office: [phone] [facility] HOSPITALRios
--- NOTE | 2018-02-09 21:27 | CON ---
DATE OF CONSULTATION: 02/09/2018 Mr. Damian is a 72-year-old male. He developed sudden onset of shortness of breath. He became ext remely diaphoretic with this. He was placed on BiPAP, given 80 of IV Lasix and moved to the Critical Care Unit. I examined him multiple times during the first hour that he was in the ICU. Each time, he reported feeling a little bit better. PAST MEDICAL HISTORY: 1. Remarkable for recently being admitted for his defibrillator Vest shocking him. 2. History of systolic cardiomyopathy. 3. Hypertension. 4. Diabetes. 5. Chronic atrial fibrillation. 6. History of hypothyroidism. 7. History of a TIA with carotid disease and atrial fibrillation. 8. History of nephrolithiasis complicated by need for urethral repair. FAMILY HISTORY: Negative for lung disease in early age. SOCIAL HISTORY: He is nonsmoker, nondrinker, without drug allergies. REVIEW OF SYSTEMS: Ten points otherwise negative. PHYSICAL EXAMINATION: GENERAL: He arrived in the ICU. VITAL SIGNS: His blood pressure was 159/68, respiratory rate was in the teens. He had full face mas k BiPAP on. He is afebrile, heart rate was in the 60s. HEENT: Pupils are equal. Sclerae is anicteric. NECK: Supple. He was no longer using accessory muscles. LUNGS: Remarkable for crackles in both lung bases. HEART: Regular rhythm. ABDOMEN: Soft and nontender. EXTREMITIES: No clubbing, cyanosis, or edema. LABORATORY DATA: White count 10.7, hemoglobin 8.9, platelets 409. Sodium 138, potassium 5.1, chlori de 102, bicarb 29, BUN 31, creatinine 2.26, 1.91 yesterday, pH 7.33, CO2 of 51, pO2 of 50 on a nonreb reather prior to BiPAP. IMPRESSION: 1. Severe coronary disease per my discussion with Dr. Mercado. 2. Acute congestive heart failure. He appears to be clinically improving. Dr. Mercado has made referral for transfer to [place]. He a ppears to be improving on multiple exams. I do believe he is stable to fly to [place] with BiPAP. Lizette moran given his improvement did not need intubation at the time of my evaluation. Critical care time was 30 minutes.
--- NOTE | 2018-02-10 12:50 | DIS-2 ---
DATE OF ADMISSION: 02/05/2018 DATE OF DISCHARGE: 02/09/2018 ADMITTING ATTENDING: Dr. Porfirio Reynolds. DISCHARGE ATTENDING: Dr. Erick Rivera. RESIDENT: Angel Dsouza DO CONSULTATIONS: 1. Dr. Yonatan Garland Cardiology. 2. Dr. Muir, Electrophysiology. PROCEDURES: Left heart catheterization. Report per nursing was high amount of coronary artery disease, high risk catheterization. Recommend transfer to [facility]. PRIMARY DIAGNOSIS: Ventricular fibrillation. SECONDARY DIAGNOSES: 1. Chronic atrial fibrillation. 2. Congestive heart failure. 3. Diabetes mellitus type 2. 4. Acute kidney injury on chronic kidney disease. 5. Hypothyroid. 6. Hypertension. 7. Normocytic anemia. DISCHARGE MEDICATIONS: Amlodipine/atorvastatin 1 tablet p.o. q.p.m., Levemir 13 units subcu at bedtime, aspirin 81 mg p.o. daily, Multaq 400 mg p.o. b.i.d. Synthroid 50 mcg p.o. 0600 hours Nitrostat 0.4 mg SL q.5 minutes p.r.n. Prandin 2 mg p.o. t.i.d. with meals Levemir 14 units subcu daily warfarin 2.5 mg p.o. as directed warfarin 5 mg p.o. on Tuesday, Tuesday and Tuesday. DISCONTINUED MEDICATIONS: captopril 50 mg p.o. t.i.d.,Metformin 1000 mg p.o. b.i.d., HISTORY OF PRESENT ILLNESS AND HOSPITAL COURSE: Mr. Damian arrived to the ED after his LifeVest went off during a session of rehabilitation. He recently was put on a LifeVest after an extended hospitalization in [place] for HUS, E. coli sepsis and kidney failure. His ejection fraction dropped to 15%-20% and was put on the LifeVest. At that time sent to do outpatient cardiac rehab. Upon interrogation of the LifeVest, it was found that the rhythm was ventricular fibrillation that induced a shock. He was shocked once, ventricular fibrillation resumed, shocked again, obtained ROSC, transferred immediately to the ED where he was placed in telemetry and monitored. For the first days of his hospitalization, he was stable and without concern. Cardiology and EP were consulted and recommendations were followed. On fourth day of hospitalization, he went for a left heart catheterization. Returned from left heart catheterization with the report that the blockages were severe and high risk and he would need to be transferred to a higher center of care to receive therapy for this. Shortly after he returned, he began to have increasing shortness of breath, oxygen desaturation, high blood pressure, suspected flash pulmonary edema given a total of 80 mg Lasix, started on a nitro drip, BiPAP. ABG was obtained. EKG was obtained to rule out cardiac ischemia. He was transferred to ICU on BiPAP and nitro. Urine output increased , blood pressures stabilized, O2 saturation normalized. Considered stable for transport. He was prepped and sent via helicopter and sent to [facility]. DISPOSITION: Guarded. DISCHARGE INSTRUCTIONS: 1. Discharged to transfer facility to [facility]. 2. Diet: Heart healthy. 3. Activity: Cardiopulmonary limits. Follow up with hospital service at [facility]. LUCI
== END 2018-02-09 13:45 | disposition short-term general hospital (02) | DRG 286 ==
LOC: 2NO 20:09 → CCU 02-09 12:50
PROVIDERS: ADMIT Family Medicine; ATTEND Family Medicine
PROC: 4A023N7 Measurement of Cardiac Sampling and Pressure, Left Heart, Percutaneous Approach (ICD-10-PCS; principal; 2018-02-09)
PROC: B2111ZZ Fluoroscopy of Multiple Coronary Arteries using Low Osmolar Contrast (ICD-10-PCS; 2018-02-09)
PROC: B2151ZZ Fluoroscopy of Left Heart using Low Osmolar Contrast (ICD-10-PCS; 2018-02-09)
DX: I49.01 Ventricular fibrillation (principal); I50.23 Acute on chronic systolic (congestive) heart failure; I13.0 Hypertensive heart and chronic kidney disease with heart failure and stage 1 through stage 4 chronic kidney disease, or unspecified chronic kidney disease; N17.9 Acute kidney failure, unspecified; I25.10 Atherosclerotic heart disease of native coronary artery without angina pectoris; I42.9 Cardiomyopathy, unspecified; E03.9 Hypothyroidism, unspecified; I48.2 Chronic atrial fibrillation; E87.6 Hypokalemia; D64.9 Anemia, unspecified; E83.42 Hypomagnesemia; E11.22 Type 2 diabetes mellitus with diabetic chronic kidney disease; N18.9 Chronic kidney disease, unspecified; I44.7 Left bundle-branch block, unspecified; Z86.73 Personal history of transient ischemic attack (TIA), and cerebral infarction without residual deficits; Z95.5 Presence of coronary angioplasty implant and graft; Z82.49 Family history of ischemic heart disease and other diseases of the circulatory system
CPT/HCPCS: 36415; 36416; 71045; 80048; 82553; 82805; 83735; 83880; 84145; 84443; 84484; 85025; 85610; 85730; 93005; 93010; 93306; 93454; 93798; 94640; 94660; C1769; G8978-GP-CJ; G8979-GP-CJ; G8980-GP-CJ; G8987-GO-CI; G8988-GO-CI; G8989-GO-CI; J1644; J1815; J1940; J2001; J2250; J2270

== ENCOUNTER 2018-04-23 09:29 | Inpatient (IN) | payer MEDICARE ==
[2018-04-23] MEDS ORDERED: Succinylcholine Chloride 20 MG/ML 10 ml SYRINGE FS ONE (09:33)
[2018-04-23 09:51] LABS: #Basophils 0.1 thou/uL (0.0-0.2); #Eosinphils 1.5 thou/uL (0.0-0.7); #Lymphocytes 1.9 thou/uL (1.20-3.40); #Neutrophils 9.8 thou/uL (1.40-6.50); %Basophils 0.5 % (0.0-1.0); %Eosinophils 10.2 % (0.0-10.0); %Lymphocytes 13.4 % (21.0-51.0); %Neutrophils 68.9 % (42.0-75.0); Hemoglobin 12.3 g/dL (14.0-18.0); Mean Corpuscular HGB CONC 31.9 g/dL (32.0-36.0); Mean Corpuscular Volume 90.9 fL (78.0-98.0); Mean Platelet Volume 8.3 fL (7.4-10.4); Platelet Count 296 thou/uL (130-400); RBC Distribution Width 15.6 % (11.5-14.5); Red Blood Cell (RBC) Count 4.25 mill/uL (4.70-6.10); White Blood Cell (WBC) Count 14.2 thou/uL (4.8-10.8)
[2018-04-23] MEDS ORDERED: Propofol 1,000 MG/100 ML VIAL IV ONE (09:51)
[2018-04-23] MEDS ORDERED: niCARdipine 20MG In NaCl 20 MG/200 ML BAG ONE (09:51)
[2018-04-23] MEDS ORDERED: Phytonadione 10 MG/ML AMP SLOW IVP SCH (10:00)
[2018-04-23] MEDS ORDERED: ADMIXTURE FEE IV SCH (10:00)
[2018-04-23] MEDS ORDERED: HUMAN PROTHROMBIN COMPLX IV SCH (10:00)
[2018-04-23] MEDS ORDERED: Phytonadione 10 MG/ML AMP SC SCH (10:00)
[2018-04-23 10:01] LABS: INR-International Normal Ratio 2.4
[2018-04-23 10:02] LABS: PTT 35.2 SEC (22.9-36.1)
[2018-04-23 10:04] LABS: ALT (SGPT) 12 U/L (8-55); AST (SGOT) 22 U/L (5-34); Albumin 4.4 g/dL (3.4-4.8); Alkaline Phosphatase 76 U/L (40-150); Anion Gap 18 mmol/L (10-20); BUN (Urea Nitrogen) 14 mg/dL (8.4-25.7); Bilirubin, Total 0.5 mg/dL (0.2-1.2); CK (CPK) 77 U/L (30-200); Calc. Creatinine Clearance 0 mL/min (70-130); Calcium 9.7 mg/dL (7.8-10.44); Carbon Dioxide 25 mmol/L (23-31); Chloride 101 mmol/L (98-107); Estimated GFR-MDRD 53; Globulin 3.8 g/dL (2.4-3.5); Glucose 238 mg/dL (83-110); Potassium 3.7 mmol/L (3.5-5.1); Protein, Total 8.2 g/dL (5.8-8.1); Sodium 140 mmol/L (136-145)
[2018-04-23 10:07] LABS: CKMB 2.9 ng/mL (0-6.6); Troponin I 0.022 ng/mL (< 0.028)
[2018-04-23 10:14] LABS: Analyzer IN Cardio ER; CO2 Tension 37.7 mmHg (35.0-45.0); Carboxyhemoglobin (COHb) 0.3 gm% (0.0-3.0); Hemoglobin (Hb) 11.9 g/dL (14.0-18.0); O2 Tension (PaO2) 136.5 mmHg (> 70.0); Potassium - ABG Lab 3.94 mmol/L (3.70-5.30); pH, Arterial 7.44 (7.35-7.45)
[2018-04-23 10:17] LABS: ALV-art Gradient 315.475 (0-20); Puncture Site L.R.
[2018-04-23] MEDS ORDERED: manNITOL 20% 500 ML ONE (10:18)
[2018-04-23] MEDS ORDERED: Mannitol 12.5 GM/50 ML ONE (10:19)
[2018-04-23] MEDS ORDERED: CCU Electrolyte Replacement 1 EACH IVPB SCH (10:43)
[2018-04-23] MEDS ORDERED: Mag-Al 1200 mg/1200 mg/30 ML UDCUP PO PRN (10:43)
[2018-04-23] MEDS ORDERED: Ondansetron PF 4 MG/2 ML Vial IVP PRN (10:43)
[2018-04-23] MEDS ORDERED: Bisacodyl 10 MG SUPP PR PRN (10:43)
--- NOTE | 2018-04-23 10:44 | CT ---
CT BRAIN WITHOUT CONTRAST: Date: 04/23/18 HISTORY: Stroke alert, right-sided paralysis and aphasia. FINDINGS: There is a large, acute, intraparenchymal hemorrhage in the left cerebellar hemisphere with accompany ing small amount of acute hemorrhage in the left lateral ventricle, and a midline shift of 15 mm to t he right. The bony calvarium is intact. There is mucosal disease in the paranasal sinuses. IMPRESSION: Acute intracranial hemorrhage with subfalcine herniation. Discussed over the telephone with ER physician, Dr. Arias, at 0939 hours. CODE CR. POS: [facility]
--- NOTE | 2018-04-23 10:48 | RAD ---
PORTABLE CHEST 1 VIEW: Date: 04/23/18 Time: 1005 hours HISTORY: Respiratory failure. FINDINGS/IMPRESSION: Comparison made with exam of 02/05/18. Interval change of median sternotomy seen. There is an endotracheal tube with tip just below the leve l of the clavicular heads. A nasogastric tube can be traced into the stomach. The heart is enlarged. There is pulmonary vascular congestion. No definite pneumothoraces seen. There is a right-sided pleur al effusion. There are patchy opacities in the lung hall bilaterally. POS: [facility]
--- NOTE | 2018-04-23 11:35 | HP ---
HISTORY OF PRESENT ILLNESS: Mr. Damian is a 72-year-old man, who was brought to the [place] [facility] via EMS for alerted mental status and loss of consciousness. A CT scan was performed in the department, which revealed a large left-sided intracerebral hemorrhage in the frontotemporal region with significant mass effect at midline causing 1.5 cm of midline shift with compression and effacement of the left lateral ventricle almost in its entirety. He is known to be on Coumadin with an INR at 2.4, which was drawn in the department. Reversal was given in the form of Kcentra and vitamin K, and recommendations were made to start mannitol. His initial GCS was graded at 5 before intubation as he continued to further decline. His initial presentation, systolic blood pressures were up above 200. This has been corrected with propofol and Cardene down to a level of 130. When I walked into the room; however, it came back up to 180. His Cardene has been turned off. We will start this again with a target of less than 160 systolic. On his exam, he is intubated. He moves somewhat spontaneously and does withdraw to pain; however, he does not open his eyes either to command or stimulus, and his verbal is unable to be graded secondary to intubation. I would still grade his GCS either 4 or 5, as he inconsistently withdraws, at times he does not know. Some of this certainly is obscured secondary to the fact that he has been sedated with propofol. PAST MEDICAL HISTORY: Unassessed. I do not have family at bedside to confirm. MEDICATIONS: We just know that he does have a current medication of Coumadin. ALLERGIES: NO KNOWN DRUG ALLERGIES. ASSESSMENT: Acute intracerebral hemorrhage. PLAN: The patient will be admitted to the ICU with q.1 hour neuro checks. This likely represents a devastating, potentially fatal hemorrhage with no surgical recommendation. We will plan max medical therapy, which will include mannitol q.6 hours; however, a dose of 0.25 g/kg. Will target systolic blood pressure is less than [address] scan later this afternoon to track progression. Again, reversal has already been given in the emergency department, but we will check an INR again around 1 o'clock this afternoon to make sure that reversal has been achieved. We will discuss this with family and with Dr. Villanueva. Job ID: [id number]
[2018-04-23] MEDS ORDERED: Magnesium 2 GM/NS 0.9% 100 ML 2 GM in Premix Bag 1 BAG IVPB PRN (11:58)
[2018-04-23] MEDS ORDERED: CCU ELECTROLYTE REPLACEMENT PROTOCOL FS PRN (11:58)
[2018-04-23] MEDS ORDERED: Potassium Chloride 20 MEQ TAB PO PRN (11:58)
[2018-04-23] MEDS ORDERED: Potassium Chloride 40 MEQ in Sodium Chloride 0.9% 250 ML 250 ML IVPB PRN (11:58)
[2018-04-23] MEDS ORDERED: Magnesium Oxide 400 MG TAB PO PRN ×2 (11:58)
[2018-04-23] MEDS ORDERED: Potassium Phosphate 9 MMOL in Sodium Chloride 0.9% 100 ML IVPB PRN (11:58)
[2018-04-23] MEDS ORDERED: Potassium Phosphate 15 MMOL in Sodium Chloride 0.9% 250 ML 250 ML IV PRN (11:58)
[2018-04-23] MEDS ORDERED: Potassium Chloride 40 MEQ in Premix Bag 1 BAG IVPB PRN (11:58)
[2018-04-23] MEDS ORDERED: Potassium Phosphate 12 MMOL in Sodium Chloride 0.9% 250 ML 250 ML IV PRN (11:58)
--- NOTE | 2018-04-23 11:58 | PRG ---
DATE OF SERVICE: 04/23/2018 SUBJECTIVE: Mr. Damian is a 72-year-old gentleman, who presents to the ER with the abrupt onset of altered mental status and loss of consciousness. He had a CT scan performed in the ER, which revealed the presence of hemispheric left-sided intracerebral hemorrhage with a significant midline shift. He presents on Coumadin. Neurologically, he has a poor exam with a GCS of 4. The plan will be one of nonsurgical management. We will administer mannitol. He will undergo reversal of the coagulation. We will maintain systolic blood pressure of 160 or less. This hemorrhage is likely to be a devastating hemorrhage and one from which Mr. Damian will not recover. Job ID: [id number]
[2018-04-23] MEDS: Sodium Chloride 0.9% 1,000 ML IV SCH ×2 (12:32→22:09)
[2018-04-23 14:21] LABS: INR-International Normal Ratio 1.6; Prothrombin Time 18.9 SEC (12.0-14.7)
[2018-04-23] MEDS ORDERED: Atropine Sulfate 1 mg/10 ml Syringe ONE (15:00)
--- NOTE | 2018-04-23 16:20 | CON ---
DATE OF CONSULTATION: HISTORY OF PRESENT ILLNESS: The patient is in the ICU, 72-year-old gentleman, who was admitted by Neurosurgery for left massive intracerebral hemorrhage. The patient recently discharged from [facility] following a coronary artery bypass graft surgery. This morning, he woke up, felt he had some weakness on his left side, apparently had some aphasia, followed by some right-sided weakness. tells me that they had issues with controlling his blood pressure following his bypass surgery. He is a lifelong nonsmoker. Surgery was just done, 13 February 2018, at [facility]. He has never smoked. No prior history of TB, pneumonia, or bronchial asthma. Does have history of congestive cardiomyopathy, EF was decreased following bypass, apparently improved to 40% as per the family. He has been recuperating, walking around. Seven months ago, he was hospitalized in [place] for E. coli sepsis, etiology unclear. PAST MEDICAL HISTORY: Coronary artery disease, previous two stents, diabetes, hyperlipidemia, hypertension, gout, and sepsis. PAST SURGICAL HISTORY: Past surgeries: Two stents, bypass. MEDICATIONS: From home includes; 1. Metformin 1000 twice a day. 2. Amlodipine 1 tab a day. 3. Coumadin 2.5 alternate with 5 mg. 4. Prandin 2 mg. 5. Nitroglycerin. 6. Synthroid 50. 7. Insulin Levemir 15 units in the morning and 13 units at nighttime. 8. Multaq 400 twice a day. 9. Capoten 50 twice. 10. Aspirin. ALLERGIES: NONE. SOCIAL HISTORY: Tobacco none, never. Alcohol, none. Retired from [employer]. PHYSICAL EXAMINATION: GENERAL: Intubated in the vent. HEENT: Pupils are equal. He is moving some of his left side as per the nurse. VITAL SIGNS: Pulse 98, blood pressure 133/79. He is on a Cardene drip. Sats are 100%, respirations 16. CHEST: Reveals bilateral rhonchi and crackles. CARDIAC: Sinus tach. ABDOMEN: Soft without any masses. LABORATORY DATA: White count 14,000, H and H 12, and 38, and platelet count is 296. PO2 is 136, pCO2 rate of 14, creatinine 1.3. Chest x-ray shows cardiomegaly, right-sided pleural effusion, diffuse pulmonary infiltrates, recent surgical scar. CT brain shows large intracranial hemorrhage with herniation, left intraparenchymal hemorrhage. IMPRESSION: 1. Left intraparenchymal hemorrhage. 2. Recent coronary artery bypass graft. 3. Congestive heart failure, x-ray. 4. Diabetes. 5. Renal failure. Continue nicardipine. Continue supportive care. Continue vent until family and Neurosurgery decide whether any intervention is possible or comfort care. This is one-half hour critical care time in the ICU. Job ID: [id number]
[2018-04-23 16:41] LABS: Anion Gap 18 mmol/L (10-20); BUN (Urea Nitrogen) 15 mg/dL (8.4-25.7); Calc. Creatinine Clearance 64 mL/min (70-130); Calcium 8.7 mg/dL (7.8-10.44); Carbon Dioxide 22 mmol/L (23-31); Chloride 98 mmol/L (98-107); Estimated GFR-MDRD 60; Glucose 266 mg/dL (83-110); Sodium 134 mmol/L (136-145)
[2018-04-23] MEDS ORDERED: Amiodarone 200 MG TAB PO SCH (16:45)
[2018-04-23] MEDS ORDERED: Dextrose 5% in Water 1,000 ML IV PRN (16:57)
[2018-04-23] MEDS ORDERED: Dextrose 50% Abboject 50 ML SYRINGE SLOW IVP PRN (16:57)
[2018-04-23] MEDS ORDERED: Propofol BOLUS 1,000 MG/100 ML VIAL IV PRN (16:58)
[2018-04-23] MEDS ORDERED: Mannitol 12.5 GM/50 ML IV SCH ×3 (17:00→18:00)
--- NOTE | 2018-04-23 17:34 | PDOC.PN ---
- Subjective Encounter Start Date: 04/23/18 Encounter Start Time: 17:32 Subjective: IM team consulted for medical Mm.Chart reviewed.Care discussed w RN -: no family at bedside. -: H/O a-fib on coumadin.comes w AMS & found to have large ICH.Intubated - Objective MAR Reviewed: Yes Vital Signs & Weight: Vital Signs (12 hours) Temp Pulse Resp BP Pulse Ox 04/23/18 16:00 99.2 F 14 04/23/18 15:10 105 H 126/65 04/23/18 13:00 100 04/23/18 12:05 97.6 F 14 04/23/18 12:02 67 150/72 H Weight Weight 174 lb 2.643 oz Most Recent Monitor Data Heart Rate from ECG 113 NIBP 126/81 NIBP BP-Mean 96 Respiration from ECG 19 SpO2 100 I&O: 04/22/18 04/23/18 04/24/18 06:59 06:59 06:59 Output Total 1725 Balance -1725 Result Diagrams: 04/23/18 09:36 04/23/18 13:55 Additional Labs: Accuchecks 04/23/18 09:32 POC Glucose 212 H Laboratory Tests 04/23/18 04/23/18 04/23/18 09:36 09:36 13:59 INR 2.4 1.6 Troponin I 0.022 Radiology Reviewed by me: Yes (CT brain-large left sided ICH w Subfalcine herniation) EKG Reviewed by me: Yes (NSR on tele) Phys Exam - Physical Examination Constitutional: NAD sedated. HEENT: PERRLA, moist MMs, oral pharynx no lesions ETT Neck: no nodes, no JVD Respiratory: no wheezing, no rales, no rhonchi Cardiovascular: RRR, no significant murmur Gastrointestinal: soft, non-tender, no distention, positive bowel sounds Musculoskeletal: no edema, pulses present Limited due to sedation.Upgoing babinski b/l Deviation from normal: sedated Skin: no rash Dx/Plan (1) ICH (intracerebral hemorrhage) Code(s): I61.9 - NONTRAUMATIC INTRACEREBRAL HEMORRHAGE, UNSPECIFIED Status: Acute Qualifiers: Intracerebral hemorrhage etiology: nontraumatic Laterality: left (2) Unresponsiveness Status: Acute (3) Leucocytosis Code(s): D72.829 - ELEVATED WHITE BLOOD CELL COUNT, UNSPECIFIED Status: Acute Comment: likley reactive (4) Paroxysmal atrial fibrillation Code(s): I48.0 - PAROXYSMAL ATRIAL FIBRILLATION Status: Chronic (5) CAD (coronary artery disease) Code(s): I25.10 - ATHSCL HEART DISEASE OF [place] CORONARY ARTERY W/O ANG PCTRS Status: Chronic Comment: Recent CABG 02/[address] [facility] (6) CHF (congestive heart failure) Code(s): I50.9 - HEART FAILURE, UNSPECIFIED Status: Chronic Qualifiers: Heart failure type: systolic Heart failure chronicity: chronic Qualified Code(s): I50.22 - Chronic systolic (congestive) heart failure Comment: EF 20-25% pre CABG in 02/16 (7) DMII (diabetes mellitus, type 2) Status: Chronic (8) HTN (hypertension) Code(s): I10 - ESSENTIAL (PRIMARY) HYPERTENSION Status: Chronic (9) Hypothyroidism Code(s): E03.9 - HYPOTHYROIDISM, UNSPECIFIED Status: Chronic - Plan respiratory therapy, DVT proph w/SCDs INR trending down/S/P Vit K and Kaycentra reversal. -: conservative Mm per Primary NS team -: Nicardipine drip w target of BP<160. -: restart amiodarone and BB for tachycardia w possible a-fib earlier. -: supportive care & Vent support.AM labs * .IM team will follow * add ISS w accuchecks. Review of Systems - Review of Systems Other: can not be obtained due to sedated ,intubated state - Medications/Allergies Allergies/Adverse Reactions: Allergies Allergy/AdvReac Type Severity Reaction Status Date / Time No Known Allergies Allergy Verified 02/05/18 20:59 Medications: Current Medications Al Hydroxide/Mg Hydroxide (Maalox) 30 ml PO QIDPRN PRN PRN Reason: Dyspepsia Amiodarone HCl (Cordarone) 200 mg PER TUBE DAILY [place] Amiodarone HCl (Cordarone) 200 mg PO NOW [place] Stop: 04/23/18 18:00 Bisacodyl (Dulcolax) 10 mg OK DAILYPRN PRN PRN Reason: Constipation Dextrose/Water (Dextrose 50%) 25 gm SLOW IVP PRN PRN PRN Reason: Hypoglycemia Famotidine (Pepcid) 20 mg SLOW IVP Q12HR [place] Glucagon (Glucagon) 1 mg IM PRN PRN PRN Reason: Hypoglycemia Nicardipine HCl 25 mg/ Sodium (Chloride) 250 mls @ 0 mls/hr IVPB INF PRN; Protocol PRN Reason: SBP > 160 or DBP > 90 Sodium Chloride (Normal Saline 0.9%) 1,000 mls @ 100 mls/hr IV .Q10H [facility] Last Admin: 04/23/18 12:32 Dose: Not Given Potassium Chloride 40 meq/ (Sodium Chloride) 270 mls @ 135 mls/hr IVPB ASDIR PRN PRN Reason: FOR SERUM K+ 2.5 - 3.5 Potassium Chloride 40 meq/ (Device) 100 mls @ 50 mls/hr IVPB ASDIR PRN PRN Reason: FOR SERUM K+ 2.5 - 3.5 Magnesium Sulfate 1 gm/ Sodium (Chloride) 102 mls @ 102 mls/hr IV PRN PRN PRN Reason: MAG LEVEL 1.4 - 2.0 Magnesium Sulfate 2 gm/ Device 100 mls @ 100 mls/hr IVPB ASDIR PRN PRN Reason: MAGNESIUM < 1.4 Potassium Phosphate 9 mmol/ (Sodium Chloride) 103 mls @ 25.75 mls/hr IVPB ASDIR PRN PRN Reason: Phosphate 1.0-1.8 Potassium Phosphate 12 mmol/ (Sodium Chloride) 254 mls @ 63.5 mls/hr IV ASDIR PRN PRN Reason: Serum phosphate 0.5-0.9 Potassium Phosphate 15 mmol/ (Sodium Chloride) 255 mls @ 63.75 mls/hr IV ASDIR PRN PRN Reason: Serum Phos < 0.5 Dextrose/Water (D5w) 1,000 mls @ 0 mls/hr IV .Q0M PRN PRN Reason: Hypoglycemia Insulin Human Lispro (Humalog) 0 units SC .MODERATE SLIDING SC PRN PRN Reason: Moderate Correctional Scale Insulin Human Lispro (Humalog) 0 units SC .BEDTIME SLIDING SC PRN PRN Reason: Bedtime Correctional Scale Magnesium Oxide (Magnesium Oxide) 400 mg PO BIDPRN PRN PRN Reason: FOR SERUM MAG 1.4 - 2.0 Magnesium Oxide (Magnesium Oxide) 800 mg PO PRN PRN PRN Reason: FOR SERUM MAG < 1.4 Mannitol (Mannitol) 25 gm IV Q6H [facility] Stop: 04/25/18 23:01 Last Admin: 04/23/18 17:30 Dose: 25 gm Metoprolol Succinate (Toprol Xl) 25 mg PO DAILY [place] Miscellaneous Medication (Ccu Electrolyte Replacement) 1 each IVPB ASDIR [place] Miscellaneous Medication (Phos-Nak) 1 pkt PO TIDPRN PRN PRN Reason: FOR PHOS LEVEL 1.0 - 1.8 Miscellaneous Medication (Phos-Nak) 2 pkt PO TIDPRN PRN PRN Reason: FOR PHOS LEVEL 0.5 - 1.0 Ccu Electrolyte (Replacement Protocol) 0 each FS PRN PRN PRN Reason: FOR ELECTROLYTE REPLACEMENT Ondansetron HCl (Zofran) 4 mg IVP Q6H PRN PRN Reason: Nausea/Vomiting Potassium Chloride (K-Dur) 40 meq PO ASDIR PRN PRN Reason: FOR SERUM K+ 2.5 - 3.5 Potassium Chloride (Klor-Con) 40 meq PER TUBE ASDIR PRN PRN Reason: FOR SERUM K+ 2.5-3.5 Propofol (Diprivan) 1,000 mg IV INF PRN; Protocol PRN Reason: TO ACHIEVE GOAL RASS Stop: 05/23/18 16:58 Propofol (Diprivan Bolus) 20 mg IV Q5MIN PRN PRN Reason: BREAKTHROUGH AGITATION Stop: 05/23/18 16:58 Sodium Chloride (Flush - Normal Saline) 10 ml IVF PRN PRN PRN Reason: Saline Flush
[2018-04-23] MEDS: HumaLOG 300 UNITS/3 ML VIAL SC PRN (18:32)
--- NOTE | 2018-04-23 18:40 | CT ---
CT BRAIN PERFORMED WITHOUT CONTRAST ENHANCEMENT: HISTORY: Followup of bleed. FINDINGS: The large intraparenchymal hemorrhage, which is in the left periventricular white matter region, is a gain demonstrated. Shift of midline structures to the right is perhaps slightly less pronounced and is in the 10 to 11 mm range on this exam. It was slightly greater on the previous study, although th e difference is really felt to be fairly minimal. The intraventricular blood is similar to the previ ous study. Dilatation to the right lateral ventricle is stable. IMPRESSION: Large intraventricular hemorrhage involving the left temporal and frontal regions with shift of midli ne structures. The shift to the right may be slightly less pronounced than the prior examination. T here is otherwise no significant interval change. The degree of difference is felt to be minimal. POS: [facility]
[2018-04-23] MEDS: niCARdipine HCl 25 MG in Sodium Chloride 0.9% 250 ML 240 ML IVPB PRN ×2 (19:43→22:54)
[2018-04-23] MEDS: Famotidine/PF 20 mg/2ml Vial SLOW IVP SCH (21:55)
[2018-04-23] MEDS: Propofol 1,000 MG/100 ML VIAL IV PRN (21:56)
[2018-04-23 22:11] LABS: Anion Gap 17 mmol/L (10-20); BUN (Urea Nitrogen) 15 mg/dL (8.4-25.7); Calc. Creatinine Clearance 60 mL/min (70-130); Calcium 8.7 mg/dL (7.8-10.44); Carbon Dioxide 21 mmol/L (23-31); Chloride 103 mmol/L (98-107); Estimated GFR-MDRD 56; Glucose 150 mg/dL (83-110); Potassium 4.1 mmol/L (3.5-5.1); Sodium 137 mmol/L (136-145)
[2018-04-23] MEDS ORDERED: Nitroglycerin 0.4 MG TAB (25 Tab Bottle) SL PRN (22:40)
[2018-04-23] MEDS ORDERED: Admixture Fee 1 EACH in manNITOL 20% 125 ML IV SCH (23:00)
[2018-04-23] MEDS: MANNITOL 20% IVPB SCH (23:55)
[2018-04-24] MEDS: MANNITOL 20% IVPB SCH (04:25)
[2018-04-24] MEDS: Levothyroxine Sodium 50 MCG TAB PO SCH (04:47)
[2018-04-24] MEDS: niCARdipine HCl 25 MG in Sodium Chloride 0.9% 250 ML 240 ML IVPB PRN ×5 (04:47→20:53)
[2018-04-24 05:09] LABS: Anion Gap 17 mmol/L (10-20); BUN (Urea Nitrogen) 16 mg/dL (8.4-25.7); Calc. Creatinine Clearance 50 mL/min (70-130); Calcium 8.6 mg/dL (7.8-10.44); Carbon Dioxide 22 mmol/L (23-31); Chloride 102 mmol/L (98-107); Estimated GFR-MDRD 46; Glucose 214 mg/dL (83-110); Sodium 137 mmol/L (136-145)
[2018-04-24] MEDS: HumaLOG 300 UNITS/3 ML VIAL SC PRN ×3 (06:12→17:15)
[2018-04-24 07:35] LABS: Actual Bicarbonate (HCO3a) 24.9 mEq/L (22-28); Base Excess (BEa) 1.9 mEq/L (-2.0 to +3.0); CO2 Tension 33.2 mmHg (35.0-45.0); Carboxyhemoglobin (COHb) 0.5 gm% (0.0-3.0); Hemoglobin (Hb) 10.5 g/dL (14.0-18.0); O2 Tension (PaO2) 94.6 mmHg (> 70.0); pH, Arterial 7.49 (7.35-7.45)
[2018-04-24 07:36] LABS: Puncture Site LRA
[2018-04-24] MEDS: Propofol 1,000 MG/100 ML VIAL IV PRN ×2 (07:47→23:30)
[2018-04-24] MEDS: metFORMIN 500 MG TAB PO SCH ×2 (07:50→17:05)
[2018-04-24] MEDS ORDERED: Dronedarone HCl 400 MG TAB PO SCH (08:00)
[2018-04-24] MEDS: Famotidine/PF 20 mg/2ml Vial SLOW IVP SCH ×2 (08:41→20:31)
[2018-04-24] MEDS: Rosuvastatin 20 MG TAB PO SCH (08:41)
[2018-04-24] MEDS: Lisinopril 5 MG TAB PO SCH (08:42)
[2018-04-24] MEDS: Sodium Chloride 0.9% 1,000 ML IV SCH ×2 (08:46→20:31)
[2018-04-24] MEDS ORDERED: LEVEMIR SC SCH (09:00)
[2018-04-24] MEDS ORDERED: TELMISARTAN AMLODIPINE PO SCH (09:00)
[2018-04-24] MEDS ORDERED: Non-Formulary Item 1 EACH (Metformin Hcl [Metformin Hcl Er] 1,000 MG) PO SCH (09:00)
[2018-04-24] MEDS ORDERED: Insulin Glargine 14 UNITS in Pre-Filled Syringe 1 EACH SC SCH (09:00)
[2018-04-24] MEDS ORDERED: Amiodarone 200 MG TAB PER TUBE SCH (09:00)
[2018-04-24] MEDS ORDERED: Atorvastatin Calcium 40 MG TAB PO SCH (09:00)
[2018-04-24] MEDS ORDERED: Amiodarone 200 MG TAB PO SCH (09:00)
--- NOTE | 2018-04-24 09:11 | RAD ---
PORTABLE CHEST 1 VIEW: Date; 04/24/18 Time: 0839 hours HISTORY: Respiratory failure. FINDINGS/IMPRESSION: Comparison made with exam from previous day. Changes of median sternotomy are again seen. The heart is enlarged. Endotracheal and nasogastric tube s remain in place. There are bilateral pleural effusions, right greater than left. No pneumothoraces. POS: [facility]
[2018-04-24] MEDS: Admixture Fee 1 EACH in manNITOL 20% 125 ML IV SCH ×3 (11:12→23:21)
[2018-04-24 11:38] LABS: Anion Gap 17 mmol/L (10-20); BUN (Urea Nitrogen) 18 mg/dL (8.4-25.7); Calc. Creatinine Clearance 46 mL/min (70-130); Calcium 8.4 mg/dL (7.8-10.44); Carbon Dioxide 21 mmol/L (23-31); Chloride 104 mmol/L (98-107); Estimated GFR-MDRD 42; Glucose 231 mg/dL (83-110); Potassium 3.9 mmol/L (3.5-5.1); Sodium 138 mmol/L (136-145)
[2018-04-24] MEDS: Acetaminophen 650 MG in Premix Bag 1 BAG IVPB PRN ×2 (11:50→17:10)
--- NOTE | 2018-04-24 11:54 | PDOC.PN ---
- Subjective Encounter Start Date: 04/24/18 Encounter Start Time: 11:53 Subjective: remains vent dependent.no new events -: care discussed with Ms Rice at bedside.She would not want any CPR etc -: reports that pt has made his wishes known to her multiple times - Objective Resuscitation Status - Order Detail: 04/24/18 09:51 Resuscitation Status Routine Resuscitation Status: DNAR: NO Resuscitation Discussed with: discussed with Ms Dwayne RENO Reviewed: Yes Vital Signs & Weight: Vital Signs (12 hours) Temp Pulse Resp BP 04/24/18 10:50 81 04/24/18 08:42 80 142/62 H 04/24/18 08:00 102 F H 14 04/24/18 07:30 80 04/24/18 07:00 102 F H 04/24/18 06:00 14 04/24/18 04:00 101.0 F H 14 04/24/18 02:10 79 04/24/18 02:00 14 04/24/18 00:00 100.3 F H 14 Weight Weight 173 lb 11.588 oz Most Recent Monitor Data Heart Rate from ECG 81 NIBP 147/64 NIBP BP-Mean 91 Respiration from ECG 17 SpO2 100 I&O: 04/23/18 04/24/18 04/25/18 06:59 06:59 06:59 Intake Total 2836 Output Total 3130 300 Balance -294 -300 Result Diagrams: 04/23/18 09:36 04/24/18 11:07 Additional Labs: Accuchecks 04/23/18 04/23/18 22:14 18:30 POC Glucose 161 H 254 H Laboratory Tests 04/23/18 04/23/18 04/23/18 09:36 13:55 21:47 Creatinine 1.34 H 1.19 1.27 04/24/18 04:10 Creatinine 1.51 H Phys Exam - Physical Examination Constitutional: NAD Intubated HEENT: moist MMs, TM's clear, 2+ tonsils ETT Neck: no nodes, no JVD Respiratory: no wheezing, no rales, no rhonchi, clear to auscultation bilateral Cardiovascular: RRR, no significant murmur Gastrointestinal: soft, no distention, positive bowel sounds Musculoskeletal: no edema, pulses present R hemiparesis Deviation from normal: sedated Dx/Plan (1) ICH (intracerebral hemorrhage) Code(s): I61.9 - NONTRAUMATIC INTRACEREBRAL HEMORRHAGE, UNSPECIFIED Status: Acute Qualifiers: Intracerebral hemorrhage etiology: nontraumatic Laterality: left (2) Unresponsiveness Status: Acute (3) Leucocytosis Code(s): D72.829 - ELEVATED WHITE BLOOD CELL COUNT, UNSPECIFIED Status: Acute Comment: likley reactive (4) Paroxysmal atrial fibrillation Code(s): I48.0 - PAROXYSMAL ATRIAL FIBRILLATION Status: Chronic Comment: rate controlled on amiodarone and BB. Coumadin stopped due to massive ICH (5) CAD (coronary artery disease) Code(s): I25.10 - ATHSCL HEART DISEASE OF [place] CORONARY ARTERY W/O ANG PCTRS Status: Chronic Comment: Recent CABG 02/16 at [facility] (6) CHF (congestive heart failure) Code(s): I50.9 - HEART FAILURE, UNSPECIFIED Status: Chronic Qualifiers: Heart failure type: systolic Heart failure chronicity: chronic Qualified Code(s): I50.22 - Chronic systolic (congestive) heart failure Comment: EF 20-25% pre CABG in 02/16 (7) DMII (diabetes mellitus, type 2) Status: Chronic (8) HTN (hypertension) Code(s): I10 - ESSENTIAL (PRIMARY) HYPERTENSION Status: Chronic (9) Hypothyroidism Code(s): E03.9 - HYPOTHYROIDISM, UNSPECIFIED Status: Chronic - Plan respiratory therapy, DVT proph w/SCDs supportive care.vent per PCCM. -: cont home meds as started.HD stable.Wean off cardene drip -: DNR/DNI as per 's wishes. -: IM team will follow. Poor prognosis & seems to be leaning towrds -: comfort care only * . Review of Systems - Review of Systems Other: can not be obtained due to sedation/intubation - Medications/Allergies Allergies/Adverse Reactions: Allergies Allergy/AdvReac Type Severity Reaction Status Date / Time No Known Allergies Allergy Verified 02/05/18 20:59 Medications: Current Medications Al Hydroxide/Mg Hydroxide (Maalox) 30 ml PO QIDPRN PRN PRN Reason: Dyspepsia Amiodarone HCl (Cordarone) 200 mg PER TUBE DAILY [place] Last Admin: 04/24/18 08:42 Dose: 200 mg Bisacodyl (Dulcolax) 10 mg AL DAILYPRN PRN PRN Reason: Constipation Dextrose/Water (Dextrose 50%) 25 gm SLOW IVP PRN PRN PRN Reason: Hypoglycemia Famotidine (Pepcid) 20 mg SLOW IVP Q12HR [facility] Last Admin: 04/24/18 08:41 Dose: 20 mg Glucagon (Glucagon) 1 mg IM PRN PRN PRN Reason: Hypoglycemia Nicardipine HCl 25 mg/ Sodium (Chloride) 250 mls @ 0 mls/hr IVPB INF PRN; Protocol PRN Reason: SBP > 160 or DBP > 90 Last Admin: 04/24/18 10:13 Dose: 250 mls Sodium Chloride (Normal Saline 0.9%) 1,000 mls @ 100 mls/hr IV .Q10H [facility] Last Admin: 04/24/18 08:46 Dose: 1,000 mls Potassium Chloride 40 meq/ (Sodium Chloride) 270 mls @ 135 mls/hr IVPB ASDIR PRN PRN Reason: FOR SERUM K+ 2.5 - 3.5 Potassium Chloride 40 meq/ (Device) 100 mls @ 50 mls/hr IVPB ASDIR PRN PRN Reason: FOR SERUM K+ 2.5 - 3.5 Magnesium Sulfate 1 gm/ Sodium (Chloride) 102 mls @ 102 mls/hr IV PRN PRN PRN Reason: MAG LEVEL 1.4 - 2.0 Magnesium Sulfate 2 gm/ Device 100 mls @ 100 mls/hr IVPB ASDIR PRN PRN Reason: MAGNESIUM < 1.4 Potassium Phosphate 9 mmol/ (Sodium Chloride) 103 mls @ 25.75 mls/hr IVPB ASDIR PRN PRN Reason: Phosphate 1.0-1.8 Potassium Phosphate 12 mmol/ (Sodium Chloride) 254 mls @ 63.5 mls/hr IV ASDIR PRN PRN Reason: Serum phosphate 0.5-0.9 Potassium Phosphate 15 mmol/ (Sodium Chloride) 255 mls @ 63.75 mls/hr IV ASDIR PRN PRN Reason: Serum Phos < 0.5 Dextrose/Water (D5w) 1,000 mls @ 0 mls/hr IV .Q0M PRN PRN Reason: Hypoglycemia Insulin Glargine 12 units/ (Miscellaneous Medication) 0.12 mls @ 0 mls/hr SC HS [place] Insulin Glargine 14 units/ (Miscellaneous Medication) 0.14 mls @ 0 mls/hr SC QAM [facility] Last Admin: 04/24/18 08:44 Dose: Not Given Acetaminophen 650 mg/ Device 65 mls @ 400 mls/hr IVPB Q6H PRN PRN Reason: Fever > 101 Stop: 04/25/18 08:29 Last Admin: 04/24/18 11:50 Dose: 65 mls Miscellaneous Medication 1 (each/ Mannitol) 125 mls @ 250 mls/hr IV 0500,1100, 1700,2300 [facility] Stop: 04/25/18 23:01 Last Admin: 04/24/18 11:12 Dose: 125 mls Levofloxacin 750 mg/ Device 150 mls @ 100 mls/hr IVPB Q24HR [facility] Insulin Human Lispro (Humalog) 0 units SC .BEDTIME SLIDING SC PRN PRN Reason: Bedtime Correctional Scale Insulin Human Lispro (Humalog) 0 units SC .AGGRESSIVE SLIDING PRN PRN Reason: Aggressive Correctional Scale Last Admin: 04/24/18 11:50 Dose: 6 unit Levothyroxine Sodium (Synthroid) 50 mcg PO 0600 [facility] Last Admin: 04/24/18 04:47 Dose: 50 mcg Lisinopril (Zestril) 5 mg PO DAILY [facility] Last Admin: 04/24/18 08:42 Dose: 5 mg Magnesium Oxide (Magnesium Oxide) 400 mg PO BIDPRN PRN PRN Reason: FOR SERUM MAG 1.4 - 2.0 Magnesium Oxide (Magnesium Oxide) 800 mg PO PRN PRN PRN Reason: FOR SERUM MAG < 1.4 Metformin HCl (Glucophage) 1,000 mg PO BID-[facility] Last Admin: 04/24/18 07:50 Dose: 1,000 mg Metoprolol Succinate (Toprol Xl) 25 mg PO DAILY [facility] Last Admin: 04/24/18 08:42 Dose: 25 mg Miscellaneous Medication (Ccu Electrolyte Replacement) 1 each IVPB ASDIR [facility] Miscellaneous Medication (Phos-Nak) 1 pkt PO TIDPRN PRN PRN Reason: FOR PHOS LEVEL 1.0 - 1.8 Miscellaneous Medication (Phos-Nak) 2 pkt PO TIDPRN PRN PRN Reason: FOR PHOS LEVEL 0.5 - 1.0 Nitroglycerin (Nitrostat) 0.4 mg SL Q5MIN PRN PRN Reason: Chest Pain Ccu Electrolyte (Replacement Protocol) 0 each FS PRN PRN PRN Reason: FOR ELECTROLYTE REPLACEMENT Ondansetron HCl (Zofran) 4 mg IVP Q6H PRN PRN Reason: Nausea/Vomiting [Telmisartan- Amlodipine 40-10] 1 Tablet 1 each PO DAILY [facility] Potassium Chloride (K-Dur) 40 meq PO ASDIR PRN PRN Reason: FOR SERUM K+ 2.5 - 3.5 Potassium Chloride (Klor-Con) 40 meq PER TUBE ASDIR PRN PRN Reason: FOR SERUM K+ 2.5-3.5 Propofol (Diprivan) 1,000 mg IV INF PRN; Protocol PRN Reason: TO ACHIEVE GOAL RASS Stop: 05/23/18 16:58 Last Admin: 04/24/18 07:47 Dose: 1,000 mg Propofol (Diprivan Bolus) 20 mg IV Q5MIN PRN PRN Reason: BREAKTHROUGH AGITATION Stop: 05/23/18 16:58 Repaglinide (Prandin) 2 mg PO TID-[facility] Last Admin: 04/24/18 08:43 Dose: Not Given Rosuvastatin Calcium (Crestor) 20 mg PO DAILY [facility] Last Admin: 04/24/18 08:41 Dose: 20 mg Sodium Chloride (Flush - Normal Saline) 10 ml IVF PRN PRN PRN Reason: Saline Flush
--- NOTE | 2018-04-24 12:06 | PRG ---
DATE OF SERVICE: 04/24/2018 Mr. Damian is a 72-year-old gentleman, who presents with large intracerebral hemorrhage in the setting of Coumadin. He is intubated on the ICU. He does not exhibit spontaneous movements of the left side. His hemorrhage is a large hemispheric hemorrhage, which in my view is not amenable to surgical intervention. He has been reversed. He is receiving mannitol and he has adequate blood pressure control at this point in time. I did have a discussion with the patient's as well as his daughter just to update them with respect to diagnosis, imaging, and plan moving forward, which will be a nonsurgical management and transition toward our [facility] hospitalist service. Job ID: [id number]
--- NOTE | 2018-04-24 12:12 | PRG ---
DATE OF SERVICE: SERVICE: Pulmonary Medicine. INTERVAL HISTORY: The patient is doing fine from respiratory standpoint. There has been no interval change to his condition neurologically or otherwise. There were no significant events overnight other than a fever. PHYSICAL EXAMINATION: VITALS: T-max 102.0, pulse 81, blood pressure 147/64, respirations 17, and saturation 100% on 30% FiO2 and a PEEP of 5. GENERAL: The patient is intubated. He is requiring a little bit of sedation to prevent ventilator dyssynchrony. HEENT: Normocephalic, atraumatic. Sclerae white. Conjunctivae pink. Oral mucosa is moist without lesions. LUNGS: Decent air entry. Rhonchi are present. There is no prolonged expiratory phase or wheezing appreciated. HEART: Normal rate, regular. ABDOMEN: Soft, nontender, and nondistended. Bowel sounds are positive. MUSCULOSKELETAL: No cyanosis or clubbing. No pitting in the bilateral lower extremities. NEUROLOGIC: Pupils are equal, round, and reactive. He is comfortably overbreathing in the ventilator. He demonstrates a very good cough and gag. With noxious stimuli, he will posture with the right upper extremity, and withdraw from the left upper extremity. LABORATORY DATA: WBC 14.2, hemoglobin 12.3, platelets 296,000. Neutrophil count is 69%. INR 1.6. PH 7.49, pCO2 of 33, pO2 of 94, corresponding to a saturation of 98%. Creatinine up trending to 1.64. Basic metabolic profile is otherwise unremarkable. IMAGING: Chest x-ray demonstrates bilateral pleural effusion is much larger on the right. Endotracheal tube is in good position, terminating roughly 2 to 3 cm above the level of the lopez. Enteric catheter courses in the midline below the level of the diaphragm and out of the field of view. I do not see any overt consolidating changes though parenchymal density in the right base cannot be entirely excluded. CT of the brain demonstrates a large left-sided intraparenchymal lesion with intraventricular extension, and midline shift. ASSESSMENT: 1. Acute respiratory failure secondary to inability to protect airway. 2. Intraparenchymal hemorrhage, large. 3. Acute kidney injury, stabilizing. 4. Coronary bypass graft, recent. 5. Chronic systolic heart failure (20% EF). The patient will remain on mechanical ventilation until he has a little bit more time to recover from this neurologic event. That being said, based on the scope of this lesion, his current neurologic exam, I do think that he will likely suffer permanent debility moving forward. At this point, it is reasonable to give him a 24-48 hours to see how things settle while we talked to the family about end of life choices that the patient would make. Pulmonary Critical Care will continue to follow along in this location. I have made multiple adjustments to the ventilator, turn a little bit more work of breathing over to the patient. CRITICAL CARE TIME: 30 minutes. Job ID: [id number]
[2018-04-24 12:57] LABS: Bilirubin Negative (Negative); Blood, Urine Trace (Negative); Clarity CLEAR (Clear); Glucose, Urine (Dipstick) Negative (Negative); Leukocyte Negative (Negative); Nitrite Negative (Negative); Protein, Urine (Dipstick) 30 mg/dL (Neg-Trace); Urobilinogen 0.2 mg/dL (0.2-1.0); pH, Urine 5.5 (5.0-9.0)
--- NOTE | 2018-04-24 13:39 | PRG ---
DATE OF SERVICE: 04/24/2018 SUBJECTIVE: Mr. Damian was admitted yesterday for profound left-sided hemorrhage. This morning, he will posture to deep pain stimulus, but otherwise has no problems with movement. He does not spontaneously open his eyes. Pupils are equally round and reactive to light. He does have random ocular movements present. From electrolyte standpoint, everything is within normal limits other than his glucose, which has gone up to 215. We will adjust his insulin and sliding scale and add q.6h POC glucose checks. Given his pathology, repeat CT scan, and his examination, I feel this carries a very grave prognosis. This was discussed with the family yesterday, but I do not see them today at bedside. Plan will be to continue mannitol for the time being. He did run a fever presently 102. We will obtain a chest x-ray and add q.6h p.r.n. Tylenol IV for the purpose of controlling jump. Job ID: [id number]
--- NOTE | 2018-04-24 14:49 | PQF ---
CLINICAL DOCUMENTATION IMPROVEMENT CLARIFICATION FORM: ICD-10 Updated PLEASE DO AN ADDENDUM TO THE PROGRESS NOTE WITH ANY DOCUMENTATION UPDATES OR ADDITIONS AND CARRY THROUGH TO DC SUMMARY. THANK YOU. DATE: 04/24/18 ATTN: DR. PEREZ Please exercise your independent, professional judgment in responding to the clarification form. Clinical indicators are provided on the bottom of this form for your review Please check appropriate box(s): [ ] Acute Respiratory Failure: [ ] with Hypoxia[ ] with Hypercapnia [ ] Acute On Chronic Respiratory Failure: [ ] with Hypoxia [ ] with Hypercapnia [ X ] Acute Respiratory Failure due to: (etiology) ___Cerebral hemorrhage [ ] Chronic Respiratory Failure only [ ] with Hypoxia [ ] with Hypercapnia [ ] Other diagnosis [ ] Unable to determine In addition, please specify: Present on Admission (POA): [ ] Yes [ ] No [ ] Unable to determine For continuity of documentation, please document condition throughout progress notes and discharge summary. Thank You. CLINICAL INDICATORS - SIGNS / SYMPTOMS / LABS ER NOTE: "RESPIRATORY FAILURE" RISKS: APHASIA LARGE LEFT SIDED INTRACEREBRAL HEMORRHAGE TREATMENT: INTUBATION AND MECHANICAL VENTILATION CCU MONITORING PULMONARY CONSULT (This form is maintained as a part of the permanent medical record) 2014 [employer]. All Rights Reserved [email or web address] Office: [phone] [employer]
--- NOTE | 2018-04-24 14:58 | PQF ---
CLINICAL DOCUMENTATION IMPROVEMENT CLARIFICATION FORM: ICD-10 Updated PLEASE DO AN ADDENDUM TO THE PROGRESS NOTE WITH ANY DOCUMENTATION UPDATES OR ADDITIONS AND CARRY THROUGH TO DC SUMMARY. THANK YOU. DATE: 04/24/18 ATTN : DR. PEREZ Please exercise your independent, professional judgment in responding to the clarification form. Clinical indicators are provided on the bottom of this form for your review Please check appropriate box(s): [ ] Cerebral edema / Vasogenic edema [ ] Compression of brain Due to: [ ] Intracranial hematoma [ ] Acute cerebral infarction [ X ] Other diagnosis _NOT MY DIAGNOSIS.SEND TO NEUROSURGERY PLEASE [ ] Unable to determine In addition, please specify: Present on Admission (POA): [ ] Yes [ ] No [ ] Unable to determine For continuity of documentation, please document condition throughout progress notes and discharge summary. Thank You. CLINICAL INDICATORS - SIGNS / SYMPTOMS / LABS BRAIN CT 04/23: "THERE IS A LARGE, ACUTE INTRAPARENCHYMAL HEMORRHAGE IN THE LEFT CEREBELLAR HEMISPHERE WITH ACCOMPANYING SMALL AMOUNT OF ACUTE HEMORRHAGE IN THE LEFT LATERAL VENTRICLE, AND A MIDLINE SHIFT OF 15 MM TO THE RIGHT. H&P: "1.5 CM OF MIDLINE SHIFT WITH COMPRESSION AND EFFACEMENT OF THE LEFT LATERAL VENTRICLE ALMOST IN ITS ENTIRETY." RISKS: INTRACEREBRAL HEMORRHAGE H/O HYPERTENSION H/O COUMADIN USE GCS 7 (ER NOTE) TREATMENT: CRITICAL CARE MONITORING BRAIN CT IV MANNITOL (ER-PRESENT) IV CARDENE (04/23-PRESENT) NEUROSURGERY CONSULT (This form is maintained as a part of the permanent medical record) 2014 [employer]. All Rights Reserved [email or web address] Office: [phone] [facility]
--- NOTE | 2018-04-24 15:36 | CON ---
DATE OF CONSULTATION: CRITICAL CARE NOTE TIME: 30 minutes. HISTORY OF PRESENT ILLNESS: This is an unfortunate 72-year-old gentleman with history of severe coronary artery disease, who presented with acute onset of altered mental status and left-sided weakness. The patient has history of coronary artery disease. He has previously undergone PTCA and stent placed in the LAD. The patient recently developed severe E. coli sepsis infection. The patient subsequently was admitted after his and was found to have ventricular tachycardia. The patient had developed severe cardiomyopathy. The patient underwent repeat catheterization and found to have progressive three-vessel coronary artery disease. He underwent emergent coronary artery bypass graft surgery in [place]. The patient was recovering well. He has history of chronic atrial fibrillation and chronic anticoagulation therapy. The patient presented with acute onset of weakness and altered mental status. PAST MEDICAL HISTORY: 1. Cardiomyopathy. 2. Coronary artery disease. 3. Hypertension. 4. Atrial fibrillation. 5. Diabetes mellitus. 6. Thyroid disorder. PAST SURGICAL HISTORY: None. SOCIAL HISTORY: Nonsmoker. MEDICATIONS: See nursing list. PHYSICAL EXAMINATION: GENERAL: Obtunded gentleman. VITAL SIGNS: Blood pressure 124/54. NECK: Full. LUNGS: Coarse breath sounds. HEART: Regular rate and rhythm. Normal S1, S2. 1/6 systolic murmur. ABDOMEN: Distended. EXTREMITIES: Showed no edema. LABORATORY DATA: Sodium 138, potassium 3.9, chloride 104, bicarbonate 21, BUN 18, creatinine is 1.64. White blood cell count 14.2, hemoglobin 12.3, hematocrit 36.3, and his platelets are 296. His INR was 2.4. His EKG revealed him to have normal sinus rhythm, left atrial enlargement. monitor technician revealed paroxysmal atrial fibrillation. IMPRESSION: 1. Status post intracerebral hemorrhage. 2. Paroxysmal atrial fibrillation. 3. History of chronic back surgery. 4. History of ventricular tachycardia. 5. History of cardiomyopathy. This unfortunate gentleman has suffered intracerebral hemorrhage. His INR was at appropriate levels. From a cardiac standpoint, amiodarone will be used to keep him out of atrial fibrillation. I would recommend increasing the dose on this medication since he continues to go in and out of atrial fibrillation. We will follow this patient with you through his hospitalization . Job ID: [id number] MTDD
[2018-04-24 17:07] LABS: Anion Gap 14 mmol/L (10-20); BUN (Urea Nitrogen) 21 mg/dL (8.4-25.7); Calc. Creatinine Clearance 41 mL/min (70-130); Calcium 8.5 mg/dL (7.8-10.44); Carbon Dioxide 23 mmol/L (23-31); Chloride 106 mmol/L (98-107); Estimated GFR-MDRD 36; Glucose 181 mg/dL (83-110); Potassium 3.6 mmol/L (3.5-5.1); Sodium 139 mmol/L (136-145)
[2018-04-24] MEDS: Amiodarone 200 MG TAB PER TUBE SCH (20:31)
[2018-04-24] MEDS ORDERED: Insulin Glargine 12 UNITS in Pre-Filled Syringe 1 EACH SC SCH (21:00)
[2018-04-24] MEDS ORDERED: Non-Formulary Item 1 EACH (Levemir Flexpen [Levemir Flexpen] 12 UNIT) SC SCH (21:00)
[2018-04-24] MEDS ORDERED: Amlodipine 10 MG TAB PO SCH (21:00)
[2018-04-24 22:26] LABS: Anion Gap 17 mmol/L (10-20); BUN (Urea Nitrogen) 21 mg/dL (8.4-25.7); Calc. Creatinine Clearance 39 mL/min (70-130); Calcium 8.4 mg/dL (7.8-10.44); Carbon Dioxide 20 mmol/L (23-31); Chloride 106 mmol/L (98-107); Estimated GFR-MDRD 35; Glucose 195 mg/dL (83-110); Potassium 3.9 mmol/L (3.5-5.1); Sodium 139 mmol/L (136-145)
[2018-04-25] MEDS: HumaLOG 300 UNITS/3 ML VIAL SC PRN ×4 (00:39→16:46)
[2018-04-25] MEDS: niCARdipine HCl 25 MG in Sodium Chloride 0.9% 250 ML 240 ML IVPB PRN ×2 (03:32→12:36)
[2018-04-25 04:53] LABS: Anion Gap 16 mmol/L (10-20); BUN (Urea Nitrogen) 24 mg/dL (8.4-25.7); Calc. Creatinine Clearance 39 mL/min (70-130); Calcium 8.5 mg/dL (7.8-10.44); Carbon Dioxide 18 mmol/L (23-31); Chloride 108 mmol/L (98-107); Estimated GFR-MDRD 35; Glucose 221 mg/dL (83-110); Potassium 3.7 mmol/L (3.5-5.1); Sodium 138 mmol/L (136-145)
[2018-04-25] MEDS: Levothyroxine Sodium 50 MCG TAB PO SCH (05:00)
[2018-04-25] MEDS: Acetaminophen 650 MG in Premix Bag 1 BAG IVPB PRN (05:00)
[2018-04-25 05:26] LABS: #Lymphocytes 0.9 thou/uL (1.20-3.40); #Monocytes 1.2 thou/uL (0.11-0.59); #Neutrophils 13.2 thou/uL (1.40-6.50); %Basophils 0.1 % (0.0-1.0); %Eosinophils 0.1 % (0.0-10.0); %Lymphocytes 5.8 % (21.0-51.0); Hemoglobin 10.4 g/dL (14.0-18.0); Mean Corpuscular HGB CONC 32.1 g/dL (32.0-36.0); Mean Corpuscular Hemoglobin 29.7 pg (27.0-31.0); Mean Corpuscular Volume 92.7 fL (78.0-98.0); Mean Platelet Volume 8.3 fL (7.4-10.4); Platelet Count 249 thou/uL (130-400); RBC Distribution Width 15.8 % (11.5-14.5); Red Blood Cell (RBC) Count 3.48 mill/uL (4.70-6.10); White Blood Cell (WBC) Count 15.4 thou/uL (4.8-10.8)
[2018-04-25] MEDS: Sodium Chloride 0.9% 1,000 ML IV SCH ×2 (05:34→17:23)
[2018-04-25] MEDS: Admixture Fee 1 EACH in manNITOL 20% 125 ML IV SCH (05:34)
--- NOTE | 2018-04-25 07:22 | PRG ---
DATE OF SERVICE: 04/25/2018 SUBJECTIVE: Mr. Damian is stable, but again spontaneously moving the left side and posturing to painful stimulus. We do not have any significant movement in the right upper extremity. He does posture with the right lower extremity as well. We will attempt to open his eyes to deep pain stimulus. He retains a cough gag and corneal reflexes. Pupils are equal, round, and reactive to light. He does spontaneously breathing the ventilator from time to time. Pressures have been good. He does continue to have which appears to be central mediated secondary to disc hemorrhage. Neurosurgery will continue to follow. Job ID: [id number]
[2018-04-25 07:56] LABS: Actual Bicarbonate (HCO3a) 23.2 mEq/L (22-28); Base Excess (BEa) 0.2 mEq/L (-2.0 to +3.0); CO2 Tension 31.5 mmHg (35.0-45.0); Calcium, Ionized 1.12 mmol/L (1.12-1.30); Carboxyhemoglobin (COHb) 0.5 gm% (0.0-3.0); Hemoglobin (Hb) 10.1 g/dL (14.0-18.0); O2 Tension (PaO2) 82.5 mmHg (> 70.0); Potassium - ABG Lab 3.25 mmol/L (3.70-5.30); pH, Arterial 7.49 (7.35-7.45)
[2018-04-25 07:58] LABS: ALV-art Gradient 92.025 (0-20); Puncture Site RRA
[2018-04-25] MEDS: Amiodarone 200 MG TAB PER TUBE SCH (08:36)
[2018-04-25] MEDS: Famotidine/PF 20 mg/2ml Vial SLOW IVP SCH ×2 (08:36→22:09)
[2018-04-25] MEDS: Admixture Fee 1 EACH in manNITOL 20% 125 ML FS SCH ×3 (08:36→22:08)
[2018-04-25] MEDS: Rosuvastatin 20 MG TAB PO SCH (08:36)
[2018-04-25] MEDS: Lisinopril 5 MG TAB PO SCH (08:36)
[2018-04-25] MEDS: Amlodipine 10 MG TAB PO SCH (08:37)
[2018-04-25] MEDS: metFORMIN 500 MG TAB PO SCH ×2 (08:40→16:46)
[2018-04-25 09:36] LABS: Anion Gap 14 mmol/L (10-20); BUN (Urea Nitrogen) 26 mg/dL (8.4-25.7); Calc. Creatinine Clearance 40 mL/min (70-130); Calcium 8.5 mg/dL (7.8-10.44); Carbon Dioxide 21 mmol/L (23-31); Chloride 108 mmol/L (98-107); Estimated GFR-MDRD 34; Glucose 199 mg/dL (83-110); Potassium 3.4 mmol/L (3.5-5.1); Sodium 140 mmol/L (136-145)
[2018-04-25] MEDS: Insulin Glargine 20 UNITS in Pre-Filled Syringe 1 EACH SC SCH (11:36)
--- NOTE | 2018-04-25 11:39 | PDOC.PN ---
- Subjective Encounter Start Date: 04/25/18 Encounter Start Time: 11:38 Subjective: no changes .remains ventdependent -: family not in room today - Objective Resuscitation Status - Order Detail: 04/24/18 09:51 Resuscitation Status Routine Resuscitation Status: DNAR: NO Resuscitation Discussed with: discussed with Ms Dwayne RENO Reviewed: Yes Vital Signs & Weight: Vital Signs (12 hours) Temp Pulse Resp BP 04/25/18 10:10 89 163/84 H 04/25/18 10:00 21 H 04/25/18 08:00 19 04/25/18 07:18 78 133/58 L 04/25/18 07:00 99.7 F H 04/25/18 06:00 16 04/25/18 05:00 101.5 F H 04/25/18 04:00 18 04/25/18 02:31 89 145/65 H 04/25/18 02:00 18 04/25/18 00:00 100.7 F H 23 H Weight Admit Weight 173 lb Weight 180 lb 15.992 oz Most Recent Monitor Data Heart Rate from ECG 92 NIBP 154/71 NIBP BP-Mean 98 Respiration from ECG 18 SpO2 100 I&O: 04/24/18 04/25/18 04/26/18 06:59 06:59 06:59 Intake Total 2836 3874.7 Output Total 3130 2035 450 Balance -294 1839.7 -450 Result Diagrams: 04/25/18 05:04 04/25/18 08:06 Additional Labs: Accuchecks 04/25/18 04/25/18 04/24/18 06:01 00:11 20:52 POC Glucose 251 H 235 H 187 H 04/24/18 04/24/18 16:21 11:17 POC Glucose 183 H 228 H Laboratory Tests 04/24/18 04/24/18 04/24/18 04:10 11:07 16:38 Creatinine 1.51 H 1.64 H 1.86 H 04/24/18 04/25/18 22:05 04:28 Creatinine 1.92 H 1.92 H Microbiology 04/24/18 10:40 Urine clean catch Urine Culture - Preliminary NO GROWTH AT 24 HOURS Phys Exam - Physical Examination Constitutional: NAD intubated HEENT: PERRLA, moist MMs, sclera anicteric, oral pharynx no lesions ETT Neck: no nodes, no JVD Respiratory: no wheezing, no rales Cardiovascular: RRR, no significant murmur Gastrointestinal: soft, no distention Musculoskeletal: no edema, pulses present withdraws to pain excpet in R arm Deviation from normal: sedated Skin: no rash Dx/Plan (1) ICH (intracerebral hemorrhage) Code(s): I61.9 - NONTRAUMATIC INTRACEREBRAL HEMORRHAGE, UNSPECIFIED Status: Acute Qualifiers: Intracerebral hemorrhage etiology: nontraumatic Laterality: left (2) Unresponsiveness Status: Acute (3) Leucocytosis Code(s): D72.829 - ELEVATED WHITE BLOOD CELL COUNT, UNSPECIFIED Status: Acute Comment: likley reactive (4) Paroxysmal atrial fibrillation Code(s): I48.0 - PAROXYSMAL ATRIAL FIBRILLATION Status: Chronic Comment: rate controlled on amiodarone and BB. Coumadin stopped due to massive ICH (5) CAD (coronary artery disease) Code(s): I25.10 - ATHSCL HEART DISEASE OF [place] CORONARY ARTERY W/O ANG PCTRS Status: Chronic Comment: Recent CABG 02/[address] [facility] (6) CHF (congestive heart failure) Code(s): I50.9 - HEART FAILURE, UNSPECIFIED Status: Chronic Qualifiers: Heart failure type: systolic Heart failure chronicity: chronic Qualified Code(s): I50.22 - Chronic systolic (congestive) heart failure Comment: EF 20-25% pre CABG in 02/16 (7) DMII (diabetes mellitus, type 2) Status: Chronic (8) HTN (hypertension) Code(s): I10 - ESSENTIAL (PRIMARY) HYPERTENSION Status: Chronic (9) Hypothyroidism Code(s): E03.9 - HYPOTHYROIDISM, UNSPECIFIED Status: Chronic - Plan DVT proph w/SCDs low Gd fever-likley cerebral.Urine Cxnegative so far -: HD stable. amio increased for a-fib.cont BB,DOLORES-I -: ICH management per NS.on Mannitol -: Blood sugar high.increase lantus dose .Monitor -: IM team will follow * . Review of Systems - Review of Systems Other: can not be obtained as pt is intubated and sedated - Medications/Allergies Allergies/Adverse Reactions: Allergies Allergy/AdvReac Type Severity Reaction Status Date / Time No Known Allergies Allergy Verified 02/05/18 20:59 Medications: Current Medications Al Hydroxide/Mg Hydroxide (Maalox) 30 ml PO QIDPRN PRN PRN Reason: Dyspepsia Amiodarone HCl (Cordarone) 200 mg PER TUBE BID [facility] Last Admin: 04/25/18 08:36 Dose: 200 mg Amlodipine Besylate (Norvasc) 10 mg PO DAILY [facility] Last Admin: 04/25/18 08:37 Dose: 10 mg Bisacodyl (Dulcolax) 10 mg [place] DAILYPRN PRN PRN Reason: Constipation Dextrose/Water (Dextrose 50%) 25 gm SLOW IVP PRN PRN PRN Reason: Hypoglycemia Famotidine (Pepcid) 20 mg SLOW IVP Q12HR [facility] Last Admin: 04/25/18 08:36 Dose: 20 mg Glucagon (Glucagon) 1 mg IM PRN PRN PRN Reason: Hypoglycemia Nicardipine HCl 25 mg/ Sodium (Chloride) 250 mls @ 0 mls/hr IVPB INF PRN; Protocol PRN Reason: SBP > 160 or DBP > 90 Last Admin: 04/25/18 03:32 Dose: 250 mls Sodium Chloride (Normal Saline 0.9%) 1,000 mls @ 100 mls/hr IV .Q10H [facility] Last Admin: 04/25/18 05:34 Dose: 1,000 mls Potassium Chloride 40 meq/ (Sodium Chloride) 270 mls @ 135 mls/hr IVPB ASDIR PRN PRN Reason: FOR SERUM K+ 2.5 - 3.5 Potassium Chloride 40 meq/ (Device) 100 mls @ 50 mls/hr IVPB ASDIR PRN PRN Reason: FOR SERUM K+ 2.5 - 3.5 Magnesium Sulfate 1 gm/ Sodium (Chloride) 102 mls @ 102 mls/hr IV PRN PRN PRN Reason: MAG LEVEL 1.4 - 2.0 Magnesium Sulfate 2 gm/ Device 100 mls @ 100 mls/hr IVPB ASDIR PRN PRN Reason: MAGNESIUM < 1.4 Potassium Phosphate 9 mmol/ (Sodium Chloride) 103 mls @ 25.75 mls/hr IVPB ASDIR PRN PRN Reason: Phosphate 1.0-1.8 Potassium Phosphate 12 mmol/ (Sodium Chloride) 254 mls @ 63.5 mls/hr IV ASDIR PRN PRN Reason: Serum phosphate 0.5-0.9 Potassium Phosphate 15 mmol/ (Sodium Chloride) 255 mls @ 63.75 mls/hr IV ASDIR PRN PRN Reason: Serum Phos < 0.5 Dextrose/Water (D5w) 1,000 mls @ 0 mls/hr IV .Q0M PRN PRN Reason: Hypoglycemia Levofloxacin 750 mg/ Device 150 mls @ 100 mls/hr IVPB Q24HR [facility] Last Admin: 04/24/18 12:55 Dose: 150 mls Miscellaneous Medication 1 (each/ Mannitol) 125 mls @ 125 mls/hr FS Q6H [facility] Last Admin: 04/25/18 08:36 Dose: 125 mls Insulin Glargine 20 units/ (Miscellaneous Medication) 0.2 mls @ 0 mls/hr SC HS [facility] Insulin Glargine 20 units/ (Miscellaneous Medication) 0.2 mls @ 0 mls/hr SC QAM [facility] Last Admin: 04/25/18 11:36 Dose: Not Given Insulin Human Lispro (Humalog) 0 units SC .BEDTIME SLIDING SC PRN PRN Reason: Bedtime Correctional Scale Last Admin: 04/25/18 00:39 Dose: 2 unit Insulin Human Lispro (Humalog) 0 units SC .AGGRESSIVE SLIDING PRN PRN Reason: Aggressive Correctional Scale Last Admin: 04/25/18 06:16 Dose: 9 unit Levothyroxine Sodium (Synthroid) 50 mcg PO 0600 [facility] Last Admin: 04/25/18 05:00 Dose: 50 mcg Lisinopril (Zestril) 5 mg PO DAILY [facility] Last Admin: 04/25/18 08:36 Dose: 5 mg Magnesium Oxide (Magnesium Oxide) 400 mg PO BIDPRN PRN PRN Reason: FOR SERUM MAG 1.4 - 2.0 Magnesium Oxide (Magnesium Oxide) 800 mg PO PRN PRN PRN Reason: FOR SERUM MAG < 1.4 Metformin HCl (Glucophage) 1,000 mg PO BID-[facility] Last Admin: 04/25/18 08:40 Dose: 1,000 mg Miscellaneous Medication (Ccu Electrolyte Replacement) 1 each IVPB ASDIR [facility] Miscellaneous Medication (Phos-Nak) 1 pkt PO TIDPRN PRN PRN Reason: FOR PHOS LEVEL 1.0 - 1.8 Miscellaneous Medication (Phos-Nak) 2 pkt PO TIDPRN PRN PRN Reason: FOR PHOS LEVEL 0.5 - 1.0 Nitroglycerin (Nitrostat) 0.4 mg SL Q5MIN PRN PRN Reason: Chest Pain Ccu Electrolyte (Replacement Protocol) 0 each FS PRN PRN PRN Reason: FOR ELECTROLYTE REPLACEMENT Ondansetron HCl (Zofran) 4 mg IVP Q6H PRN PRN Reason: Nausea/Vomiting Potassium Chloride (K-Dur) 40 meq PO ASDIR PRN PRN Reason: FOR SERUM K+ 2.5 - 3.5 Potassium Chloride (Klor-Con) 40 meq PER TUBE ASDIR PRN PRN Reason: FOR SERUM K+ 2.5-3.5 Last Admin: 04/25/18 09:55 Dose: 40 meq Propofol (Diprivan) 1,000 mg IV INF PRN; Protocol PRN Reason: TO ACHIEVE GOAL RASS Stop: 05/23/18 16:58 Last Admin: 04/24/18 23:30 Dose: 1,000 mg Propofol (Diprivan Bolus) 20 mg IV Q5MIN PRN PRN Reason: BREAKTHROUGH AGITATION Stop: 05/23/18 16:58 Repaglinide (Prandin) 2 mg PO TID-[facility] Last Admin: 04/25/18 08:42 Dose: 2 mg Rosuvastatin Calcium (Crestor) 20 mg PO DAILY [facility] Last Admin: 04/25/18 08:36 Dose: 20 mg Sodium Chloride (Flush - Normal Saline) 10 ml IVF PRN PRN PRN Reason: Saline Flush Telmisartan (Micardis) 40 mg PO DAILY [facility] Last Admin: 04/25/18 08:38 Dose: 40 mg
[2018-04-25] MEDS ORDERED: Acetaminophen 650 MG Suppository PR PRN (11:57)
[2018-04-25] MEDS: Acetaminophen 500 MG TAB PO PRN ×2 (12:09→17:11)
[2018-04-25] MEDS: Propofol 1,000 MG/100 ML VIAL IV PRN (13:00)
[2018-04-25 16:20] LABS: Anion Gap 14 mmol/L (10-20); BUN (Urea Nitrogen) 23 mg/dL (8.4-25.7); Calc. Creatinine Clearance 47 mL/min (70-130); Calcium 8.4 mg/dL (7.8-10.44); Carbon Dioxide 20 mmol/L (23-31); Chloride 109 mmol/L (98-107); Estimated GFR-MDRD 40; Glucose 153 mg/dL (83-110); Potassium 3.6 mmol/L (3.5-5.1); Sodium 139 mmol/L (136-145)
--- NOTE | 2018-04-25 17:24 | PRG ---
DATE OF SERVICE: 04/25/2018 OBJECTIVE: VITAL SIGNS: Mr. Damian's heart rate 88, blood pressure 146/64, respiratory rate 20, and oximetry is 100%. Still hemiplegic. He does have a gag. HEENT: His pupils are reactive. LUNGS: Clear. HEART: Regular rhythm. ABDOMEN: Soft without guarding. EXTREMITIES: Without edema. LABORATORY DATA: White count 15.4, hemoglobin 10.4, platelets 249. Sodium 140, potassium 3.4, chloride 108, bicarbonate 21, BUN 26, creatinine 1.96. PH 7.49, CO2 of 31, PO2 of 82. IMPRESSION: Respiratory failure after a large left intraparenchymal brain hemorrhage with a shift of 10 to 11 mm, slightly less than the last admission study. He is currently not weanable from mechanical ventilation, is stable. Critical care time, 30 minutes. Job ID: [id number] MTDD
[2018-04-25] MEDS ORDERED: Amiodarone 150 MG, Admixture Fee 1 EACH in Dextrose 5% in Water 100 ML IVPB SCH (17:45)
[2018-04-25] MEDS: Amiodarone 450 MG, Admixture Fee 1 EACH in Dextrose 5% in Water 250 ML IVPB SCH (18:18)
[2018-04-25] MEDS ORDERED: Insulin Glargine 20 UNITS in Pre-Filled Syringe 1 EACH SC SCH (21:00)
[2018-04-25 22:31] LABS: BUN (Urea Nitrogen) 20 mg/dL (8.4-25.7); Calc. Creatinine Clearance 51 mL/min (70-130); Calcium 8.4 mg/dL (7.8-10.44); Carbon Dioxide 19 mmol/L (23-31); Chloride 110 mmol/L (98-107); Estimated GFR-MDRD 45; Glucose 177 mg/dL (83-110); Potassium 3.6 mmol/L (3.5-5.1); Sodium 142 mmol/L (136-145)
[2018-04-26] MEDS: HumaLOG 300 UNITS/3 ML VIAL SC PRN ×2 (01:43→18:21)
[2018-04-26] MEDS: Admixture Fee 1 EACH in manNITOL 20% 125 ML FS SCH ×4 (01:45→21:43)
[2018-04-26 02:30] LABS: Anion Gap 17 mmol/L (10-20)
[2018-04-26] MEDS: Amiodarone 450 MG, Admixture Fee 1 EACH in Dextrose 5% in Water 250 ML IVPB SCH ×2 (03:20→15:07)
[2018-04-26] MEDS: niCARdipine HCl 25 MG in Sodium Chloride 0.9% 250 ML 240 ML IVPB PRN (03:21)
[2018-04-26 06:09] LABS: Hemoglobin 10.5 g/dL (14.0-18.0); Mean Corpuscular HGB CONC 31.8 g/dL (32.0-36.0); Mean Corpuscular Volume 91.2 fL (78.0-98.0); Mean Platelet Volume 8.3 fL (7.4-10.4); Platelet Count 260 thou/uL (130-400); RBC Distribution Width 15.6 % (11.5-14.5); Red Blood Cell (RBC) Count 3.62 mill/uL (4.70-6.10); White Blood Cell (WBC) Count 17.1 thou/uL (4.8-10.8)
[2018-04-26 06:30] LABS: Anion Gap 14 mmol/L (10-20); BUN (Urea Nitrogen) 20 mg/dL (8.4-25.7); Calc. Creatinine Clearance 58 mL/min (70-130); Calcium 8.4 mg/dL (7.8-10.44); Carbon Dioxide 21 mmol/L (23-31); Chloride 109 mmol/L (98-107); Estimated GFR-MDRD 52; Glucose 146 mg/dL (83-110); Potassium 3.3 mmol/L (3.5-5.1); Sodium 141 mmol/L (136-145)
[2018-04-26 06:37] LABS: Band 4 % (5-11); Lymphocytes 8 % (21-51); MDiff Complete? YES; Monocytes 4 % (0-10); Neutrophil 84 % (42-75)
[2018-04-26] MEDS: Levothyroxine Sodium 50 MCG TAB PO SCH (07:24)
[2018-04-26] MEDS: Amlodipine 10 MG TAB PO SCH (08:33)
[2018-04-26] MEDS: Lisinopril 5 MG TAB PO SCH (08:34)
[2018-04-26] MEDS: Famotidine/PF 20 mg/2ml Vial SLOW IVP SCH ×2 (08:34→21:59)
[2018-04-26] MEDS: Rosuvastatin 20 MG TAB PO SCH (08:34)
[2018-04-26] MEDS: Sodium Chloride 0.9% 1,000 ML IV SCH (08:38)
[2018-04-26] MEDS ORDERED: Metoprolol Tartrate 5 MG/5 ML VIAL IVP SCH (09:15)
[2018-04-26] MEDS ORDERED: Amiodarone 150 MG in Dextrose 5% in Water 100 ML IVPB SCH (09:15)
--- NOTE | 2018-04-26 09:31 | PQF ---
CLINICAL DOCUMENTATION IMPROVEMENT CLARIFICATION FORM: ICD-10 Updated PLEASE DO AN ADDENDUM TO THE PROGRESS NOTE WITH ANY DOCUMENTATION UPDATES OR ADDITIONS AND CARRY THROUGH TO DC SUMMARY. THANK YOU. DATE: 04/26/18 ATTN : MARLEE HAYS Please exercise your independent, professional judgment in responding to the clarification form. Clinical indicators are provided on the bottom of this form for your review Please check appropriate box(s): [ ] Cerebral edema / Vasogenic edema [ x ] Compression of brain Due to: [ ] Intracranial tumor [ x ] Intracranial hematoma [ ] Acute cerebral infarction [ ] Traumatic brain injury [ ] Obstructive hydrocephalus [ ] Other diagnosis [ ] Unable to determine In addition, please specify: Present on Admission (POA): [ x ] Yes [ ] No [ ] Unable to determine For continuity of documentation, please document condition throughout progress notes and discharge summary. Thank You. CLINICAL INDICATORS - SIGNS / SYMPTOMS / LABS BRAIN CT 04/23: "THERE IS A LARGE, ACUTE INTRAPARENCHYMAL HEMORRHAGE IN THE LEFT CEREBELLAR HEMISPHERE WITH ACCOMPANYING SMALL AMOUNT OF ACUTE HEMORRHAGE IN THE LEFT LATERAL VENTRICLE, AND A MIDLINE SHIFT OF 15 MM TO THE RIGHT. H&P: "1.5 CM OF MIDLINE SHIFT WITH COMPRESSION AND EFFACEMENT OF THE LEFT LATERAL VENTRICLE ALMOST IN ITS ENTIRETY." RISKS: INTRACEREBRAL HEMORRHAGE H/O HYPERTENSION H/O COUMADIN USE GCS 7 (ER NOTE) TREATMENT: CRITICAL CARE MONITORING BRAIN CT IV MANNITOL (ER-PRESENT) IV CARDENE (04/23-PRESENT) NEUROSURGERY CONSULT [employer] (This form is maintained as a part of the permanent medical record) 2014 [employer]. All Rights Reserved BOB [email or web address] Office: [phone] [facility] HOSPITALRios
[2018-04-26] MEDS: Insulin Glargine 20 UNITS in Pre-Filled Syringe 1 EACH SC SCH (09:46)
[2018-04-26 10:13] LABS: Anion Gap 13 mmol/L (10-20); BUN (Urea Nitrogen) 20 mg/dL (8.4-25.7); Calc. Creatinine Clearance 63 mL/min (70-130); Calcium 8.4 mg/dL (7.8-10.44); Carbon Dioxide 21 mmol/L (23-31); Chloride 110 mmol/L (98-107); Estimated GFR-MDRD 56; Glucose 175 mg/dL (83-110); Sodium 140 mmol/L (136-145)
--- NOTE | 2018-04-26 12:35 | PDOC.PN ---
- Subjective Encounter Start Date: 04/26/18 Encounter Start Time: 12:33 Subjective: remains intubated.breathes over vent.cough/gag?pupillary reflexes + nt - Objective Resuscitation Status - Order Detail: 04/24/18 09:51 Resuscitation Status Routine Resuscitation Status: DNAR: NO Resuscitation Discussed with: discussed with Ms Dwayne RENO Reviewed: Yes Vital Signs & Weight: Vital Signs (12 hours) Temp Pulse Resp BP 04/26/18 12:00 99.6 F 18 04/26/18 11:19 127 H 142/93 H 04/26/18 10:00 16 04/26/18 08:34 132 H 135/81 04/26/18 08:33 132 H 135/81 04/26/18 08:00 14 04/26/18 07:00 99.4 F 135 H 144/99 H 04/26/18 06:00 14 04/26/18 04:00 97.9 F 14 04/26/18 02:19 120 H 165/87 H 04/26/18 02:00 14 Weight Admit Weight 173 lb Weight 183 lb 3.266 oz Most Recent Monitor Data Heart Rate from ECG 135 NIBP 150/95 NIBP BP-Mean 113 Respiration from ECG 20 SpO2 98 I&O: 04/25/18 04/26/18 04/27/18 06:59 06:59 06:59 Intake Total 3874.7 2819.1 530 Output Total 2035 2085 1000 Balance 1839.7 734.1 -470 Result Diagrams: 04/26/18 06:00 04/26/18 09:53 Additional Labs: Accuchecks 04/26/18 04/25/18 04/25/18 01:31 22:16 16:47 POC Glucose 199 H 183 H 166 H Microbiology 04/24/18 10:40 Urine clean catch Urine Culture - Final NO GROWTH AT 48 HOURS Phys Exam - Physical Examination Constitutional: NAD opens eyes & tracks the voice HEENT: PERRLA, sclera anicteric, oral pharynx no lesions ETT Neck: no nodes, no JVD, supple, full ROM Respiratory: no wheezing, no rales, no rhonchi Cardiovascular: RRR, no significant murmur Gastrointestinal: soft, non-tender, no distention, positive bowel sounds Musculoskeletal: no edema, pulses present R arm hemiparesis Skin: no rash Dx/Plan (1) ICH (intracerebral hemorrhage) Code(s): I61.9 - NONTRAUMATIC INTRACEREBRAL HEMORRHAGE, UNSPECIFIED Status: Acute Qualifiers: Intracerebral hemorrhage etiology: nontraumatic Laterality: left (2) Unresponsiveness Status: Acute (3) Leucocytosis Code(s): D72.829 - ELEVATED WHITE BLOOD CELL COUNT, UNSPECIFIED Status: Acute Comment: likley reactive (4) Paroxysmal atrial fibrillation Code(s): I48.0 - PAROXYSMAL ATRIAL FIBRILLATION Status: Chronic Comment: Coumadin stopped due to massive ICH (5) CAD (coronary artery disease) Code(s): I25.10 - ATHSCL HEART DISEASE OF [place] CORONARY ARTERY W/O ANG PCTRS Status: Chronic Comment: Recent CABG 02/[address] [facility] (6) CHF (congestive heart failure) Code(s): I50.9 - HEART FAILURE, UNSPECIFIED Status: Chronic Qualifiers: Heart failure type: systolic Heart failure chronicity: chronic Qualified Code(s): I50.22 - Chronic systolic (congestive) heart failure Comment: EF 20-25% pre CABG in 02/16 (7) DMII (diabetes mellitus, type 2) Status: Chronic (8) HTN (hypertension) Code(s): I10 - ESSENTIAL (PRIMARY) HYPERTENSION Status: Chronic (9) Hypothyroidism Code(s): E03.9 - HYPOTHYROIDISM, UNSPECIFIED Status: Chronic - Plan armando catheter, respiratory therapy, DVT proph w/SCDs HR elevated .started on amiodarone drip.cont BB -: reduce insulin as blood sugar reportedely low this morning -: DC metformin & Oral hypoglycemics.Stop ARB as already on ACE_I -: gentle IVF.monitor fluid status closely.recent CABG -: monitor lytes & replace as needed. am labs * . Review of Systems - Review of Systems Other: can not be obtained due to intubation/sedation - Medications/Allergies Allergies/Adverse Reactions: Allergies Allergy/AdvReac Type Severity Reaction Status Date / Time No Known Allergies Allergy Verified 02/05/18 20:59 Medications: Current Medications Acetaminophen (Tylenol) 500 mg PO Q6H PRN PRN Reason: Fever > 101 Last Admin: 04/25/18 17:11 Dose: 500 mg Acetaminophen (Tylenol) 650 mg [place] Q4H PRN PRN Reason: Headache/Fever or Pain Al Hydroxide/Mg Hydroxide (Maalox) 30 ml PO QIDPRN PRN PRN Reason: Dyspepsia Amlodipine Besylate (Norvasc) 10 mg PO DAILY [facility] Last Admin: 04/26/18 08:33 Dose: 10 mg Bisacodyl (Dulcolax) 10 mg [place] DAILYPRN PRN PRN Reason: Constipation Dextrose/Water (Dextrose 50%) 25 gm SLOW IVP PRN PRN PRN Reason: Hypoglycemia Famotidine (Pepcid) 20 mg SLOW IVP Q12HR [facility] Last Admin: 04/26/18 08:34 Dose: 20 mg Glucagon (Glucagon) 1 mg IM PRN PRN PRN Reason: Hypoglycemia Nicardipine HCl 25 mg/ Sodium (Chloride) 250 mls @ 0 mls/hr IVPB INF PRN; Protocol PRN Reason: SBP > 160 or DBP > 90 Last Admin: 04/26/18 03:21 Dose: 250 mls Potassium Chloride 40 meq/ (Sodium Chloride) 270 mls @ 135 mls/hr IVPB ASDIR PRN PRN Reason: FOR SERUM K+ 2.5 - 3.5 Potassium Chloride 40 meq/ (Device) 100 mls @ 50 mls/hr IVPB ASDIR PRN PRN Reason: FOR SERUM K+ 2.5 - 3.5 Magnesium Sulfate 1 gm/ Sodium (Chloride) 102 mls @ 102 mls/hr IV PRN PRN PRN Reason: MAG LEVEL 1.4 - 2.0 Magnesium Sulfate 2 gm/ Device 100 mls @ 100 mls/hr IVPB ASDIR PRN PRN Reason: MAGNESIUM < 1.4 Potassium Phosphate 9 mmol/ (Sodium Chloride) 103 mls @ 25.75 mls/hr IVPB ASDIR PRN PRN Reason: Phosphate 1.0-1.8 Potassium Phosphate 12 mmol/ (Sodium Chloride) 254 mls @ 63.5 mls/hr IV ASDIR PRN PRN Reason: Serum phosphate 0.5-0.9 Potassium Phosphate 15 mmol/ (Sodium Chloride) 255 mls @ 63.75 mls/hr IV ASDIR PRN PRN Reason: Serum Phos < 0.5 Dextrose/Water (D5w) 1,000 mls @ 0 mls/hr IV .Q0M PRN PRN Reason: Hypoglycemia Levofloxacin 750 mg/ Device 150 mls @ 100 mls/hr IVPB Q24HR [facility] Last Admin: 04/25/18 13:19 Dose: 150 mls Miscellaneous Medication 1 (each/ Mannitol) 125 mls @ 125 mls/hr FS Q6H [facility] Last Admin: 04/26/18 10:34 Dose: 125 mls Amiodarone HCl 450 mg/Miscellaneous Medication 1 each/ Dextrose/Water 259 mls @ 0 mls/hr IVPB INF [place]; Protocol Last Admin: 04/26/18 03:20 Dose: 259 mls Insulin Glargine 10 units/ (Miscellaneous Medication) 0.1 mls @ 1 mls/hr SC HS [place] Insulin Glargine 10 units/ (Miscellaneous Medication) 0.1 mls @ 1 mls/hr SC QAM [facility] Insulin Human Lispro (Humalog) 0 units SC .BEDTIME SLIDING SC PRN PRN Reason: Bedtime Correctional Scale Last Admin: 04/26/18 01:43 Dose: 2 unit Insulin Human Lispro (Humalog) 0 units SC .AGGRESSIVE SLIDING PRN PRN Reason: Aggressive Correctional Scale Last Admin: 04/25/18 16:46 Dose: 3 unit Levothyroxine Sodium (Synthroid) 50 mcg PO 0600 [facility] Last Admin: 04/26/18 07:24 Dose: 50 mcg Lisinopril (Zestril) 5 mg PO DAILY [facility] Last Admin: 04/26/18 08:34 Dose: 5 mg Magnesium Oxide (Magnesium Oxide) 400 mg PO BIDPRN PRN PRN Reason: FOR SERUM MAG 1.4 - 2.0 Magnesium Oxide (Magnesium Oxide) 800 mg PO PRN PRN PRN Reason: FOR SERUM MAG < 1.4 Miscellaneous Medication (Ccu Electrolyte Replacement) 1 each IVPB ASDIR [place] Miscellaneous Medication (Phos-Nak) 1 pkt PO TIDPRN PRN PRN Reason: FOR PHOS LEVEL 1.0 - 1.8 Miscellaneous Medication (Phos-Nak) 2 pkt PO TIDPRN PRN PRN Reason: FOR PHOS LEVEL 0.5 - 1.0 Nitroglycerin (Nitrostat) 0.4 mg SL Q5MIN PRN PRN Reason: Chest Pain Ccu Electrolyte (Replacement Protocol) 0 each FS PRN PRN PRN Reason: FOR ELECTROLYTE REPLACEMENT Ondansetron HCl (Zofran) 4 mg IVP Q6H PRN PRN Reason: Nausea/Vomiting Potassium Chloride (K-Dur) 40 meq PO ASDIR PRN PRN Reason: FOR SERUM K+ 2.5 - 3.5 Potassium Chloride (Klor-Con) 40 meq PER TUBE ASDIR PRN PRN Reason: FOR SERUM K+ 2.5-3.5 Last Admin: 04/26/18 08:49 Dose: 40 meq Propofol (Diprivan) 1,000 mg IV INF PRN; Protocol PRN Reason: TO ACHIEVE GOAL RASS Stop: 05/23/18 16:58 Last Admin: 04/25/18 13:00 Dose: 1,000 mg Propofol (Diprivan Bolus) 20 mg IV Q5MIN PRN PRN Reason: BREAKTHROUGH AGITATION Stop: 05/23/18 16:58 Rosuvastatin Calcium (Crestor) 20 mg PO DAILY [facility] Last Admin: 04/26/18 08:34 Dose: 20 mg Sodium Chloride (Flush - Normal Saline) 10 ml IVF PRN PRN PRN Reason: Saline Flush Telmisartan (Micardis) 40 mg PO DAILY [facility] Last Admin: 04/26/18 08:39 Dose: 40 mg
--- NOTE | 2018-04-26 12:36 | PRG ---
DATE OF SERVICE: 04/26/2018 SERVICE: Pulmonary Medicine. INTERVAL HISTORY: The patient is doing fine from respiratory standpoint. He is on room air. He is on mechanical ventilation, but requires it because he cannot protect his airway otherwise. He is following some very simple commands like opening and closing his eyes and wiggling of the left lower extremity on command. Otherwise, there has been no interval change to his condition. OBJECTIVE: VITAL SIGNS: Afebrile currently with a T-max of 101 degrees overnight. Pulse 127, blood pressure 142/93, respirations 18, saturation 100% on 21% FiO2 and a PEEP of 5. GENERAL: The patient is intubated. He is on no sedation. HEENT: Normocephalic and atraumatic. Sclerae white. Conjunctivae pink. Oral mucosa is moist without lesions. LUNGS: Decent air entry. There is no prolonged expiratory phase or wheezing present. HEART: Normal rate and regular. ABDOMEN: Soft, nontender, and nondistended. Bowel sounds are positive. MUSCULOSKELETAL: No cyanosis or clubbing. No pitting in the bilateral lower extremities.. NEUROLOGIC: He has a dense right-sided hemiplegia. His pupils are equal, round , and reactive. He has an upgoing Babinski on the right lower extremity. Left lower extremity, he wiggles very feebly with command. He will open and close his eyes on command. ASSESSMENT: 1. Respiratory failure secondary to inability to protect airway. 2. Intraparenchymal hemorrhage, large. 3. Acute kidney injury, resolved. 4. Coronary artery bypass graft, recent. 5. Chronic systolic heart failure (EF of 20%). 6. Atrial fibrillation, paroxysmal. DISCUSSION AND PLAN: We will initiate feeds. The family is trying to decide what to do moving forward. They are trying to determine whether or not they want to transition over to comfort care only, or do a PEG tube and tracheostomy and send to an LTAC facility. At this point, Pulmonary Critical Care will continue to follow along. I put him on pressure support ventilation and we will interrupt sedation. Critical care time: 30 minutes. Job ID: [id number] MTDD
[2018-04-26] MEDS ORDERED: Insulin Glargine 10 UNITS in Pre-Filled Syringe SC SCH ×2 (13:30→21:00)
[2018-04-26 17:04] LABS: Anion Gap 14 mmol/L (10-20); BUN (Urea Nitrogen) 18 mg/dL (8.4-25.7); Calc. Creatinine Clearance 67 mL/min (70-130); Calcium 8.5 mg/dL (7.8-10.44); Carbon Dioxide 21 mmol/L (23-31); Chloride 107 mmol/L (98-107); Estimated GFR-MDRD 61; Glucose 205 mg/dL (83-110); Potassium 3.6 mmol/L (3.5-5.1); Sodium 138 mmol/L (136-145)
[2018-04-26 22:23] LABS: Anion Gap 13 mmol/L (10-20); BUN (Urea Nitrogen) 18 mg/dL (8.4-25.7); Calc. Creatinine Clearance 66 mL/min (70-130); Calcium 8.6 mg/dL (7.8-10.44); Carbon Dioxide 22 mmol/L (23-31); Chloride 108 mmol/L (98-107); Estimated GFR-MDRD 60; Glucose 201 mg/dL (83-110); Potassium 3.5 mmol/L (3.5-5.1); Sodium 139 mmol/L (136-145)
[2018-04-27] MEDS: Admixture Fee 1 EACH in manNITOL 20% 125 ML FS SCH ×3 (02:29→13:55)
[2018-04-27] MEDS: HumaLOG 300 UNITS/3 ML VIAL SC PRN ×5 (03:16→22:50)
[2018-04-27] MEDS: Amiodarone 450 MG, Admixture Fee 1 EACH in Dextrose 5% in Water 250 ML IVPB SCH ×2 (04:25→16:50)
[2018-04-27 04:52] LABS: Anion Gap 12 mmol/L (10-20); BUN (Urea Nitrogen) 19 mg/dL (8.4-25.7); Calc. Creatinine Clearance 66 mL/min (70-130); Calcium 8.2 mg/dL (7.8-10.44); Carbon Dioxide 20 mmol/L (23-31); Chloride 108 mmol/L (98-107); Estimated GFR-MDRD 59; Glucose 215 mg/dL (83-110); Potassium 3.4 mmol/L (3.5-5.1); Sodium 137 mmol/L (136-145)
[2018-04-27] MEDS: Levothyroxine Sodium 50 MCG TAB PO SCH (06:53)
[2018-04-27] MEDS: niCARdipine HCl 25 MG in Sodium Chloride 0.9% 250 ML 240 ML IVPB PRN (06:53)
[2018-04-27] MEDS: Lisinopril 5 MG TAB PO SCH (07:45)
[2018-04-27] MEDS: Rosuvastatin 20 MG TAB PO SCH (07:45)
[2018-04-27] MEDS: Amlodipine 10 MG TAB PO SCH (07:45)
[2018-04-27] MEDS: Famotidine/PF 20 mg/2ml Vial SLOW IVP SCH ×2 (07:46→22:42)
[2018-04-27] MEDS ORDERED: Insulin Glargine 10 UNITS in Pre-Filled Syringe SC SCH (09:00)
--- NOTE | 2018-04-27 14:11 | PRG ---
DATE OF SERVICE: 04/27/2018 SERVICE: Pulmonary Medicine. INTERVAL HISTORY: The patient is doing fine from respiratory standpoint. He is on minimum support on the mechanical ventilator. He cannot provide me any additional elements of the history. Mentation nguyen, he does follow some very simple commands, but remains extremely weak. There has been no interval change to him neurologically. PHYSICAL EXAMINATION: VITAL SIGNS: Afebrile with a T-max of 100.3, pulse 72, blood pressure 143/73, respirations 18, saturation 99% on room air. GENERAL: The patient is somnolent. HEENT: Normocephalic and atraumatic. Sclerae are white. Conjunctivae are pink. Oral mucosa is moist without lesions. LUNGS: Excellent air entry. There is no prolonged expiratory phase. Wheezing is not present. Dependent crackles are minimal. HEART: Normal rate, regular. ABDOMEN: Soft, nontender, and nondistended. Bowel sounds are positive. MUSCULOSKELETAL: No cyanosis or clubbing. There is trace pitting in the bilateral lower extremities. NEUROLOGIC: He has a dense hemiplegia of the right side. His mentation is depressed. He has equal and reactive pupils, and he has a good cough and overbreathes the ventilator comfortably. He follows some very simple commands like closing his eyes, opening his eyes, and wiggling his left toes on command. LABORATORY DATA: Sodium 137, potassium 3.4. Creatinine 1.21 and stable. Basic metabolic profile is otherwise unremarkable. Respiratory culture and urine culture are negative to date. ASSESSMENT: 1. Respiratory failure secondary to inability to protect airway. 2. Intraparenchymal hemorrhage, large. 3. Acute kidney injury, resolved. 4. Chronic systolic heart failure (ejection fraction 20%). 5. Coronary artery bypass graft, recent. DISCUSSION AND PLAN: The patient's has very clearly told me that the patient would not want to live in a permanently debilitated state. She says that if he had decent mentation, but was confined to a bed and dependent on others to do most of his tasks, he would not want that from self. That being said, her children are pushing her towards being very aggressive with PEG tube placement and tracheostomy. At this point, I would like to take a step back and continue our conversations before we decide on his final disposition here. In the meantime, supportive care including antibiotics and feeds will be continued. We will watch his laboratories intermittently. I will replace potassium today. Critical Care will continue to follow along. CRITICAL CARE TIME: 30 minutes. Job ID: [id number]
--- NOTE | 2018-04-27 16:54 | PDOC.PN ---
- Subjective Encounter Start Date: 04/27/18 Encounter Start Time: 09:30 Mr. Damian was seen today in follow-up ICH. He is intubated. He will move is left side. He will open his eyes, otherwise is not very responsive. - Objective Resuscitation Status - Order Detail: 04/24/18 09:51 Resuscitation Status Routine Resuscitation Status: DNAR: NO Resuscitation Discussed with: discussed with Ms Dwayne RENO Reviewed: Yes Vital Signs & Weight: Vital Signs (12 hours) Temp Pulse Resp BP 04/27/18 16:00 99.5 F 19 04/27/18 14:46 79 160/69 H 04/27/18 14:00 17 04/27/18 12:00 18 04/27/18 11:01 82 144/73 H 04/27/18 11:00 99.7 F H 04/27/18 10:00 18 04/27/18 08:00 100.3 F H 17 04/27/18 07:21 120 H 128/72 Weight Admit Weight 173 lb Weight 178 lb 9.191 oz Most Recent Monitor Data Heart Rate from ECG 84 NIBP 170/75 NIBP BP-Mean 106 Respiration from ECG 25 SpO2 97 I&O: 04/26/18 04/27/18 04/28/18 06:59 06:59 06:59 Intake Total 2819.1 2528 498.7 Output Total 2085 3245 795 Balance 734.1 -717 -296.3 Result Diagrams: 04/26/18 06:00 04/27/18 04:23 Additional Labs: Accuchecks 04/27/18 04/27/18 04/26/18 11:45 03:15 21:43 POC Glucose 230 H 225 H 172 H 04/26/18 17:59 POC Glucose 223 H Phys Exam - Physical Examination HEENT: PERRLA Respiratory: no wheezing, no rales, no rhonchi Cardiovascular: RRR, no significant murmur, no rub, irregular tachycardic Gastrointestinal: soft, non-tender, no distention, positive bowel sounds Musculoskeletal: no edema + right sided weakness Dx/Plan (1) ICH (intracerebral hemorrhage) Code(s): I61.9 - NONTRAUMATIC INTRACEREBRAL HEMORRHAGE, UNSPECIFIED Status: Acute Qualifiers: Intracerebral hemorrhage etiology: nontraumatic Laterality: left (2) Paroxysmal atrial fibrillation Code(s): I48.0 - PAROXYSMAL ATRIAL FIBRILLATION Status: Chronic Comment: Coumadin stopped due to massive ICH (3) DMII (diabetes mellitus, type 2) Status: Chronic (4) HTN (hypertension) Code(s): I10 - ESSENTIAL (PRIMARY) HYPERTENSION Status: Chronic (5) Hypothyroidism Code(s): E03.9 - HYPOTHYROIDISM, UNSPECIFIED Status: Chronic - Plan * ICH - large ICH which is it is not expected that he will achieve any reasonable recovery. He is being treated non- surgically. He is currently on ventilator support * HTN- blood pressure has been elevated- will add Hydralazine, and Labetalol as needed- continue Lisinopril and Amlodipine * DM- blood glucose is elevated- will titrate insulin * Paroxysmal Atrial fibrillation- he is currently on Amiodarone IV- Cardiology managing * Await family decision regarding how to proceed going forward- ? Trach and PEG vs. Comfort measures
[2018-04-27] MEDS ORDERED: Propofol 1,000 MG/100 ML VIAL IV ONE (17:31)
[2018-04-27] MEDS ORDERED: Dexamethasone 4 mg/ml Vial ONE (17:31)
[2018-04-27] MEDS: Labetalol HCl 100 MG/20 ML VIAL SLOW IVP PRN (22:40)
[2018-04-28] MEDS: Insulin Glargine 14 UNITS in Pre-Filled Syringe SC SCH ×3 (06:07→21:27)
[2018-04-28] MEDS: Labetalol HCl 100 MG/20 ML VIAL SLOW IVP PRN (06:10)
[2018-04-28] MEDS: Levothyroxine Sodium 50 MCG TAB PO SCH (06:11)
[2018-04-28] MEDS: HumaLOG 300 UNITS/3 ML VIAL SC PRN ×3 (06:12→16:30)
--- NOTE | 2018-04-28 06:44 | PDOC.CTH ---
Cardiology Progress Note - Subjective Pt intubated. Not following commands. - Objective Vital Signs Temp Pulse BP 04/28/18 06:36 106 H 129/99 H 04/28/18 06:10 65 167/121 H 04/28/18 04:00 98.6 F 04/28/18 02:11 65 04/28/18 00:00 98.8 F 04/27/18 22:40 80 179/82 H 04/27/18 22:15 79 178/87 H 04/27/18 19:00 98.8 F Admit Weight 173 lb Weight 178 lb 9.191 oz 04/26/18 04/27/18 04/28/18 06:59 06:59 06:59 Intake Total 2819.1 2528 2209.7 Output Total 2085 3245 1910 Balance 734.1 -717 299.7 - Physical Examination General/Neuro: NAD Neck: carotid US brisk, no JVD present Lungs: CTA, unlabored respirations Heart: PMI normal, RRR, other: (ESB) Abdomen: no HSM, NT/ND, soft Extremities: + femoral B - Telemetry Telemetry Rhythm: SR with PAC's - Labs Result Diagrams: 04/26/18 06:00 04/27/18 04:23 Troponin/CKMB CK-MB (CK-2) 2.9 ng/mL (0-6.6) 04/23/18 09:36 Troponin I 0.022 ng/mL (< 0.028) 04/23/18 09:36 - Assessment/Plan Large ICH CAD s/p CABG Afib Respiratory failure Pt currently in SR with PAC's on IV amiodarone Continue amiodarone for now until further penitentiary recommendations are made No futher recommendations at this time
[2018-04-28] MEDS: Famotidine/PF 20 mg/2ml Vial SLOW IVP SCH ×2 (09:09→21:26)
[2018-04-28] MEDS: Rosuvastatin 20 MG TAB PO SCH (09:10)
[2018-04-28] MEDS: Amlodipine 10 MG TAB PO SCH (09:10)
[2018-04-28] MEDS: Lisinopril 5 MG TAB PO SCH (09:10)
[2018-04-28] MEDS: Amiodarone 450 MG, Admixture Fee 1 EACH in Dextrose 5% in Water 250 ML IVPB SCH (09:11)
--- NOTE | 2018-04-28 10:31 | PDOC.PN ---
- Subjective Encounter Start Date: 04/28/18 Encounter Start Time: 10:30 Mr. Damian was seen today in follow-up of ICH. He is nonverbal, and intubated. He does not follow commands. - Objective Resuscitation Status - Order Detail: 04/24/18 09:51 Resuscitation Status Routine Resuscitation Status: DNAR: NO Resuscitation Discussed with: discussed with Ms Dwayne RENO Reviewed: Yes Vital Signs & Weight: Vital Signs (12 hours) Temp Pulse Resp BP Pulse Ox 04/28/18 10:00 12 04/28/18 09:10 106 H 114/91 H 04/28/18 08:00 100.1 F H 23 H 100 04/28/18 06:36 106 H 129/99 H 04/28/18 06:10 65 167/121 H 04/28/18 06:00 23 H 04/28/18 04:00 98.6 F 18 04/28/18 02:11 65 04/28/18 02:00 19 04/28/18 00:00 98.8 F 18 04/27/18 22:40 80 179/82 H Weight Admit Weight 173 lb Weight 178 lb 9.191 oz Most Recent Monitor Data Heart Rate from ECG 115 NIBP 156/89 NIBP BP-Mean 111 Respiration from ECG 27 SpO2 100 I&O: 04/27/18 04/28/18 04/29/18 06:59 06:59 06:59 Intake Total 2528 2209.7 100 Output Total 3245 1910 325 Balance -717 299.7 -225 Result Diagrams: 04/26/18 06:00 04/27/18 04:23 Additional Labs: Accuchecks 04/28/18 04/27/18 04/27/18 05:04 21:50 16:47 POC Glucose 213 H 203 H 192 H 04/27/18 11:45 POC Glucose 230 H Phys Exam - Physical Examination HEENT: PERRLA Respiratory: no wheezing, no rales, no rhonchi, clear to auscultation bilateral Cardiovascular: RRR, no significant murmur, no rub, irregular tachycardia Gastrointestinal: soft, non-tender, no distention, positive bowel sounds Musculoskeletal: pulses present, edema present trace pedal edema bilaterally Neurological: non-focal Dx/Plan (1) ICH (intracerebral hemorrhage) Code(s): I61.9 - NONTRAUMATIC INTRACEREBRAL HEMORRHAGE, UNSPECIFIED Status: Acute Qualifiers: Intracerebral hemorrhage etiology: nontraumatic Laterality: left (2) Paroxysmal atrial fibrillation Code(s): I48.0 - PAROXYSMAL ATRIAL FIBRILLATION Status: Chronic Comment: Coumadin stopped due to massive ICH (3) DMII (diabetes mellitus, type 2) Status: Chronic (4) HTN (hypertension) Code(s): I10 - ESSENTIAL (PRIMARY) HYPERTENSION Status: Chronic (5) Hypothyroidism Code(s): E03.9 - HYPOTHYROIDISM, UNSPECIFIED Status: Chronic - Plan * Large ICH- patient is currently intubated, and not weanable * The patient's has decided against placing a tracheostomy, and is leaning towards withdrawing him from the ventilator. She is waiting for her children to come to terms with his prognosis * HTN- blood pressure is trending down * DM- slightly elevated- will continue to monitor, and continue SSI.
[2018-04-28] MEDS ORDERED: Morphine 4 MG/ML VIAL SLOW IVP PRN (10:35)
[2018-04-28] MEDS ORDERED: Morphine 2 MG/ML SYRINGE SLOW IVP PRN (11:09)
--- NOTE | 2018-04-28 14:38 | PRG ---
DATE OF SERVICE: 04/28/2018 SERVICE: Pulmonary Medicine. INTERVAL HISTORY: The patient is stable from a neurologic standpoint. He continues to be excessively somnolent and minimally responsive. That being said, he does follow some simple commands with significant stimulation. There have been no overnight events. He cannot register any complaints at this point. PHYSICAL EXAMINATION: VITAL SIGNS: Afebrile with a T-max of 100.1, pulse 72, blood pressure 167/78, respirations 24, saturation 100% on 21% FiO2 and a PEEP of 5. GENERAL: The patient is intubated. He is under the influence of no sedation. With that, he is exceptionally somnolent. With continuous stimulation, he will stay awake, but as soon as it stops, he will go right back to sleep within 3 seconds. HEENT: Normocephalic and atraumatic. Sclerae are white. Conjunctivae are pink. Oral mucosa is moist without lesions. LUNGS: Excellent air entry. There is no prolonged expiratory phase. I do not appreciate wheezing, rhonchi, or crackles today. HEART: Normal rate, regular. ABDOMEN: Soft, nontender, and nondistended. Bowel sounds are positive. MUSCULOSKELETAL: No cyanosis or clubbing. No pitting in the bilateral lower extremities. NEUROLOGIC: He has a dense hemiplegia on the right side. His pupils are equal, round, and reactive, and he comfortably overbreathes the ventilator. He has a very poor cough with deep suctioning. He will follow some simple commands with the left foot and with his eyes. LABORATORY DATA: Blood sugar ranges from 192 to 304. Urinalysis is unremarkable. Urine culture and respiratory culture are negative to date. ASSESSMENT: 1. Respiratory failure secondary to inability to protect airway. 2. Intraparenchymal hemorrhage, large. 3. Acute kidney injury, resolved. 4. Chronic systolic heart failure (ejection fraction 20%). 5. Coronary artery bypass graft, recent. DISCUSSION AND PLAN: The patient is currently stable from a neurologic and cardiovascular standpoint. He is on minimal support at this point. We will continue our discussions with the family through time to make certain that we do not violate the patient's underlying wishes. CRITICAL CARE TIME: 30 minutes. Job ID: [id number]
[2018-04-28] MEDS: hydrALAZINE 20 MG/ML VIAL SLOW IVP PRN (22:32)
[2018-04-29] MEDS: Amiodarone 450 MG, Admixture Fee 1 EACH in Dextrose 5% in Water 250 ML IVPB SCH (01:50)
[2018-04-29] MEDS: HumaLOG 300 UNITS/3 ML VIAL SC PRN ×5 (05:24→21:24)
[2018-04-29] MEDS: Levothyroxine Sodium 50 MCG TAB PO SCH (05:26)
--- NOTE | 2018-04-29 08:29 | PDOC.CTH ---
Cardiology Progress Note - Subjective No changes noted overnight - Objective Vital Signs Temp Pulse Resp BP 04/29/18 07:13 86 154/73 H 04/29/18 05:23 25 H 04/29/18 04:00 99.2 F 20 04/29/18 02:04 85 04/29/18 02:00 28 H 04/29/18 00:00 99.5 F 17 04/28/18 22:32 78 173/74 H 04/28/18 22:10 87 04/28/18 22:00 22 H Admit Weight 173 lb Weight 177 lb 14.609 oz 04/28/18 04/29/18 04/30/18 06:59 06:59 06:59 Intake Total 2209.7 1438 Output Total 1910 1995 Balance 299.7 -557 - Physical Examination General/Neuro: NAD Neck: no JVD present Lungs: CTA, unlabored respirations Heart: PMI normal, other: (irr) Abdomen: no HSM, NT/ND, soft Extremities: + femoral B - Labs Result Diagrams: 04/26/18 06:00 04/27/18 04:23 Troponin/CKMB CK-MB (CK-2) 2.9 ng/mL (0-6.6) 04/23/18 09:36 Troponin I 0.022 ng/mL (< 0.028) 04/23/18 09:36 - Assessment/Plan Large ICH CAD s/p CABG Afib Respiratory failure HR has increased. Agree with po Amodarone Add low dose BB No other changes
[2018-04-29] MEDS: Amlodipine 10 MG TAB PO SCH (10:03)
[2018-04-29] MEDS: Famotidine/PF 20 mg/2ml Vial SLOW IVP SCH ×2 (10:03→21:17)
[2018-04-29] MEDS: Insulin Glargine 14 UNITS in Pre-Filled Syringe SC SCH ×2 (10:04→21:24)
[2018-04-29] MEDS: Lisinopril 5 MG TAB PO SCH (10:06)
[2018-04-29] MEDS: Rosuvastatin 20 MG TAB PO SCH (10:06)
--- NOTE | 2018-04-29 10:06 | PRG ---
DATE OF SERVICE: 04/29/2018 SERVICE: Pulmonary Medicine. INTERVAL HISTORY: The patient is doing great from a respiratory standpoint. There has been no change to his neurologic function. Otherwise, he remains on minimal support on mechanical ventilation. The reason we are doing this, because I do not think that he would be able to protect his airway extubation. PHYSICAL EXAMINATION: VITAL SIGNS: Afebrile. Pulse 86, blood pressure 154/73, respirations 18, saturation 96% on 21% FiO2 and PEEP of 5. GENERAL: The patient is intubated. He is somnolent. There is no apparent distress. HEENT: Normocephalic and atraumatic. Sclerae white. Conjunctivae pink. Oral mucosa is moist without lesions. LUNGS: Excellent air entry. There is no prolonged expiratory phase or wheezing present. HEART: Normal rate, regular. ABDOMEN: Soft, nontender, and nondistended. Bowel sounds are positive. MUSCULOSKELETAL: No cyanosis or clubbing. No pitting in the bilateral lower extremities. NEUROLOGIC: Grossly nonfocal. ASSESSMENT: 1. Respiratory failure secondary to inability to protect airway. 2. Intraparenchymal hemorrhage, large. 3. Acute kidney injury, resolved. 4. Chronic systolic heart failure (ejection fraction 20%). 5. Coronary artery bypass graft, recent. DISCUSSION AND PLAN: The patient is stable from a neurologic perspective. That being said, he remains extremely somnolent and would not likely be able to protect his airway with extubation. He is following minimal commands with left lower extremity, and eye movements. He does attend. The family is trying to decide whether or not they would like to continue to support him through time or transition over to comfort care only knowing that he would not want to live in a permanently debilitated state based on what the is suggesting to me. Either way, supportive measures will be continued. Amiodarone can be converted over to p.o. Pulmonary will continue following along. Critical care time: 30 minutes. Job ID: [id number] MTDD
--- NOTE | 2018-04-29 12:47 | PDOC.PN ---
- Subjective Encounter Start Date: 04/29/18 Encounter Start Time: 12:46 Subjective: no changes. remains off of sedation -: maintains respiration without vent support - Objective Resuscitation Status - Order Detail: 04/24/18 09:51 Resuscitation Status Routine Resuscitation Status: DNAR: NO Resuscitation Discussed with: discussed with Ms Dwayne RENO Reviewed: Yes Vital Signs & Weight: Vital Signs (12 hours) Temp Pulse Resp BP 04/29/18 10:06 79 140/86 04/29/18 10:03 79 140/86 04/29/18 07:13 86 154/73 H 04/29/18 05:23 25 H 04/29/18 04:00 99.2 F 20 04/29/18 02:04 85 04/29/18 02:00 28 H Weight Admit Weight 173 lb Weight 177 lb 14.609 oz Most Recent Monitor Data Heart Rate from ECG 80 NIBP 149/71 NIBP BP-Mean 97 Respiration from ECG 17 SpO2 99 I&O: 04/28/18 04/29/18 04/30/18 06:59 06:59 06:59 Intake Total 2209.7 1438 Output Total 1910 1994 Balance 299.7 -557 Result Diagrams: 04/26/18 06:00 04/27/18 04:23 Additional Labs: Accuchecks 04/29/18 04/29/18 04/28/18 10:40 05:23 21:33 POC Glucose 271 H 265 H 210 H 04/28/18 16:20 POC Glucose 213 H Phys Exam - Physical Examination Constitutional: NAD HEENT: moist MMs, sclera anicteric, oral pharynx no lesions ETT Neck: no nodes, no JVD, supple, full ROM Respiratory: no wheezing, no rales, no rhonchi, clear to auscultation bilateral Cardiovascular: no significant murmur, no rub, irregular Gastrointestinal: soft, non-tender, no distention, positive bowel sounds Musculoskeletal: no edema, pulses present Neurological: non-focal, normal sensation, moves all 4 limbs Skin: no rash Dx/Plan (1) ICH (intracerebral hemorrhage) Code(s): I61.9 - NONTRAUMATIC INTRACEREBRAL HEMORRHAGE, UNSPECIFIED Status: Acute Qualifiers: Intracerebral hemorrhage etiology: nontraumatic Laterality: left (2) Unresponsiveness Status: Acute (3) Leucocytosis Code(s): D72.829 - ELEVATED WHITE BLOOD CELL COUNT, UNSPECIFIED Status: Acute Comment: likley reactive (4) Paroxysmal atrial fibrillation Code(s): I48.0 - PAROXYSMAL ATRIAL FIBRILLATION Status: Chronic Comment: Coumadin stopped due to massive ICH (5) CAD (coronary artery disease) Code(s): I25.10 - ATHSCL HEART DISEASE OF [place] CORONARY ARTERY W/O ANG PCTRS Status: Chronic Comment: Recent CABG 02/[address] [facility] (6) CHF (congestive heart failure) Code(s): I50.9 - HEART FAILURE, UNSPECIFIED Status: Chronic Qualifiers: Heart failure type: systolic Heart failure chronicity: chronic Qualified Code(s): I50.22 - Chronic systolic (congestive) heart failure Comment: EF 20-25% pre CABG in 02/16 (7) DMII (diabetes mellitus, type 2) Status: Chronic (8) HTN (hypertension) Code(s): I10 - ESSENTIAL (PRIMARY) HYPERTENSION Status: Chronic (9) Hypothyroidism Code(s): E03.9 - HYPOTHYROIDISM, UNSPECIFIED Status: Chronic - Plan continue antibiotics, PT/OT, respiratory therapy, DVT proph w/SCDs Amiodarone chnaged to PO. BB added for a-fib w RVR -: Family to decide care moving forwrad -: Minimal or no vent support at this time but doubtful he will have any retur -: of mentation.high risk of complications even if survives this episode -: IM team will follow. AM labs * . Review of Systems - Review of Systems Other: unobtainable due to unresponsiveness - Medications/Allergies Allergies/Adverse Reactions: Allergies Allergy/AdvReac Type Severity Reaction Status Date / Time No Known Allergies Allergy Verified 02/05/18 20:59 Medications: Current Medications Acetaminophen (Tylenol) 500 mg PO Q6H PRN PRN Reason: Fever > 101 Last Admin: 04/25/18 17:11 Dose: 500 mg Acetaminophen (Tylenol) 650 mg MD Q4H PRN PRN Reason: Headache/Fever or Pain Al Hydroxide/Mg Hydroxide (Maalox) 30 ml PO QIDPRN PRN PRN Reason: Dyspepsia Amiodarone HCl (Cordarone) 200 mg PO BID [facility] Amlodipine Besylate (Norvasc) 10 mg PO DAILY [facility] Last Admin: 04/29/18 10:03 Dose: 10 mg Bisacodyl (Dulcolax) 10 mg MD DAILYPRN PRN PRN Reason: Constipation Dextrose/Water (Dextrose 50%) 25 gm SLOW IVP PRN PRN PRN Reason: Hypoglycemia Famotidine (Pepcid) 20 mg SLOW IVP Q12HR [place] Last Admin: 04/29/18 10:03 Dose: 20 mg Glucagon (Glucagon) 1 mg IM PRN PRN PRN Reason: Hypoglycemia Hydralazine HCl (Apresoline) 10 mg SLOW IVP Q4H PRN PRN Reason: SBP > 180 and HR < 70 Last Admin: 04/28/18 22:32 Dose: 10 mg Nicardipine HCl 25 mg/ Sodium (Chloride) 250 mls @ 0 mls/hr IVPB INF PRN; Protocol PRN Reason: SBP > 160 or DBP > 90 Last Admin: 04/27/18 06:53 Dose: 250 mls Potassium Chloride 40 meq/ (Sodium Chloride) 270 mls @ 135 mls/hr IVPB ASDIR PRN PRN Reason: FOR SERUM K+ 2.5 - 3.5 Potassium Chloride 40 meq/ (Device) 100 mls @ 50 mls/hr IVPB ASDIR PRN PRN Reason: FOR SERUM K+ 2.5 - 3.5 Magnesium Sulfate 1 gm/ Sodium (Chloride) 102 mls @ 102 mls/hr IV PRN PRN PRN Reason: MAG LEVEL 1.4 - 2.0 Magnesium Sulfate 2 gm/ Device 100 mls @ 100 mls/hr IVPB ASDIR PRN PRN Reason: MAGNESIUM < 1.4 Potassium Phosphate 9 mmol/ (Sodium Chloride) 103 mls @ 25.75 mls/hr IVPB ASDIR PRN PRN Reason: Phosphate 1.0-1.8 Potassium Phosphate 12 mmol/ (Sodium Chloride) 254 mls @ 63.5 mls/hr IV ASDIR PRN PRN Reason: Serum phosphate 0.5-0.9 Potassium Phosphate 15 mmol/ (Sodium Chloride) 255 mls @ 63.75 mls/hr IV ASDIR PRN PRN Reason: Serum Phos < 0.5 Dextrose/Water (D5w) 1,000 mls @ 0 mls/hr IV .Q0M PRN PRN Reason: Hypoglycemia Levofloxacin 750 mg/ Device 150 mls @ 100 mls/hr IVPB Q24HR [facility] Last Admin: 04/28/18 13:28 Dose: 150 mls Insulin Glargine 14 units/ (Miscellaneous Medication) 0.14 mls @ 0 mls/hr SC HS [facility] Last Admin: 04/28/18 21:27 Dose: 0.14 mls Insulin Glargine 14 units/ (Miscellaneous Medication) 0.14 mls @ 0 mls/hr SC QAM [facility] Last Admin: 04/29/18 10:04 Dose: 0.14 mls Insulin Human Lispro (Humalog) 0 units SC .BEDTIME SLIDING SC PRN PRN Reason: Bedtime Correctional Scale Last Admin: 04/27/18 22:50 Dose: 2 unit Insulin Human Lispro (Humalog) 0 units SC .AGGRESSIVE SLIDING PRN PRN Reason: Aggressive Correctional Scale Last Admin: 04/29/18 10:55 Dose: 9 unit Labetalol HCl (Normodyne) 20 mg SLOW IVP Q4H PRN PRN Reason: SBP > 180 and HR >/= 70 Last Admin: 04/28/18 06:10 Dose: 20 mg Levothyroxine Sodium (Synthroid) 50 mcg PO 0600 [facility] Last Admin: 04/29/18 05:26 Dose: 50 mcg Lisinopril (Zestril) 5 mg PO DAILY [facility] Last Admin: 04/29/18 10:06 Dose: 5 mg Magnesium Oxide (Magnesium Oxide) 400 mg PO BIDPRN PRN PRN Reason: FOR SERUM MAG 1.4 - 2.0 Magnesium Oxide (Magnesium Oxide) 800 mg PO PRN PRN PRN Reason: FOR SERUM MAG < 1.4 Metoprolol Tartrate (Lopressor) 25 mg PER TUBE BID [facility] Miscellaneous Medication (Ccu Electrolyte Replacement) 1 each IVPB ASDIR [facility] Miscellaneous Medication (Phos-Nak) 1 pkt PO TIDPRN PRN PRN Reason: FOR PHOS LEVEL 1.0 - 1.8 Miscellaneous Medication (Phos-Nak) 2 pkt PO TIDPRN PRN PRN Reason: FOR PHOS LEVEL 0.5 - 1.0 Morphine Sulfate (Morphine) 4 mg SLOW IVP Q4H PRN PRN Reason: Severe Pain (7-10) Morphine Sulfate (Morphine) 2 mg SLOW IVP Q4H PRN PRN Reason: Mild-Moderate Pain (1-5) Nitroglycerin (Nitrostat) 0.4 mg SL Q5MIN PRN PRN Reason: Chest Pain Ccu Electrolyte (Replacement Protocol) 0 each FS PRN PRN PRN Reason: FOR ELECTROLYTE REPLACEMENT Ondansetron HCl (Zofran) 4 mg IVP Q6H PRN PRN Reason: Nausea/Vomiting Potassium Chloride (K-Dur) 40 meq PO ASDIR PRN PRN Reason: FOR SERUM K+ 2.5 - 3.5 Potassium Chloride (Klor-Con) 40 meq PER TUBE ASDIR PRN PRN Reason: FOR SERUM K+ 2.5-3.5 Last Admin: 04/27/18 07:44 Dose: 40 meq Rosuvastatin Calcium (Crestor) 20 mg PO DAILY [facility] Last Admin: 04/29/18 10:06 Dose: 20 mg Sodium Chloride (Flush - Normal Saline) 10 ml IVF PRN PRN PRN Reason: Saline Flush
--- NOTE | 2018-04-29 20:05 | EKG ---
Test Reason : Blood Pressure : / mmHG Vent. Rate : 062 BPM Atrial Rate : 062 BPM P-R Int : 196 ms QRS Dur : 108 ms QT Int : 540 ms P-R-T Axes : 073 053 100 degrees QTc Int : 548 ms Normal sinus rhythm Possible Left atrial enlargement Left ventricular hypertrophy Anteroseptal infarct , age undetermined Prolonged QT Abnormal ECG Confirmed by NANDO SHEEHAN ([id number]), art editor CHAPIN STANFORD ([id number] on 04/29/2018 8:05:07 PM Referred By: Confirmed By:NANDO SHEEHAN
[2018-04-29] MEDS: Amiodarone 200 MG TAB PO SCH (21:17)
[2018-04-29] MEDS: Metoprolol Tartrate 25 MG TAB PER TUBE SCH (21:17)
[2018-04-30] MEDS: HumaLOG 300 UNITS/3 ML VIAL SC PRN ×5 (05:57→22:07)
[2018-04-30] MEDS: Levothyroxine Sodium 50 MCG TAB PO SCH (05:57)
[2018-04-30 06:36] LABS: #Eosinphils 0.5 thou/uL (0.0-0.7); #Lymphocytes 1.6 thou/uL (1.20-3.40); #Monocytes 1.7 thou/uL (0.11-0.59); %Basophils 0.2 % (0.0-1.0); %Eosinophils 2.5 % (0.0-10.0); %Lymphocytes 8.5 % (21.0-51.0); %Monocytes 8.9 % (0.0-10.0); Hemoglobin 9.7 g/dL (14.0-18.0); Mean Corpuscular HGB CONC 32.1 g/dL (32.0-36.0); Mean Corpuscular Hemoglobin 28.7 pg (27.0-31.0); Mean Corpuscular Volume 89.4 fL (78.0-98.0); Mean Platelet Volume 8.9 fL (7.4-10.4); Platelet Count 198 thou/uL (130-400); RBC Distribution Width 15.4 % (11.5-14.5); Red Blood Cell (RBC) Count 3.38 mill/uL (4.70-6.10); White Blood Cell (WBC) Count 18.7 thou/uL (4.8-10.8)
[2018-04-30 06:55] LABS: Anion Gap 10 mmol/L (10-20); BUN (Urea Nitrogen) 27 mg/dL (8.4-25.7); Calc. Creatinine Clearance 65 mL/min (70-130); Calcium 8.2 mg/dL (7.8-10.44); Carbon Dioxide 24 mmol/L (23-31); Chloride 103 mmol/L (98-107); Estimated GFR-MDRD 60; Glucose 268 mg/dL (83-110); Magnesium 1.7 mg/dL (1.6-2.6); Phosphorus 2.7 mg/dL (2.3-4.7); Potassium 3.1 mmol/L (3.5-5.1); Sodium 134 mmol/L (136-145)
--- NOTE | 2018-04-30 07:52 | PDOC.CTH ---
Cardiology Progress Note - Subjective No changes noted overnight - Objective Vital Signs Temp Pulse Resp BP Pulse Ox 04/30/18 06:43 72 159/78 H 04/30/18 06:00 25 H 04/30/18 04:00 100.0 F H 24 H 04/30/18 03:26 66 04/30/18 02:00 28 H 04/30/18 00:00 100.6 F H 28 H 04/29/18 22:09 78 04/29/18 22:00 32 H 04/29/18 20:00 25 H 98 Admit Weight 173 lb Weight 178 lb 2.136 oz 04/29/18 04/30/18 05/01/18 06:59 06:59 06:59 Intake Total 1438 1698 Output Total 1994 1029 Balance -557 669 - Physical Examination Neck: carotid US brisk, no JVD present Lungs: CTA, unlabored respirations Heart: PMI normal, other: (irr) Abdomen: no HSM, NT/ND, soft Extremities: + femoral B - Labs Result Diagrams: 04/30/18 06:28 04/30/18 06:28 Troponin/CKMB CK-MB (CK-2) 2.9 ng/mL (0-6.6) 04/23/18 09:36 Troponin I 0.022 ng/mL (< 0.028) 04/23/18 09:36 - Assessment/Plan Large ICH CAD s/p CABG Afib Respiratory failure On PO amiodarone and metoprolol CV stable No other changes
[2018-04-30] MEDS: Amiodarone 200 MG TAB PO SCH ×2 (08:39→22:00)
[2018-04-30] MEDS: Metoprolol Tartrate 25 MG TAB PER TUBE SCH ×2 (08:39→22:00)
[2018-04-30] MEDS: Famotidine/PF 20 mg/2ml Vial SLOW IVP SCH ×2 (08:39→21:59)
[2018-04-30] MEDS: Amlodipine 10 MG TAB PO SCH (08:40)
[2018-04-30] MEDS: Insulin Glargine 14 UNITS in Pre-Filled Syringe SC SCH (08:40)
[2018-04-30] MEDS: Lisinopril 5 MG TAB PO SCH (08:40)
[2018-04-30] MEDS: Rosuvastatin 20 MG TAB PO SCH (08:40)
--- NOTE | 2018-04-30 12:07 | PRG ---
DATE OF SERVICE: 04/30/2018 FOLLOWUP CONSULTATION SUBJECTIVE: The patient is seen and examined at bedside. He is in ICU bed 5. He is intubated. OBJECTIVE: VITAL SIGNS: Blood pressure is 131/63, pulse is 64, and respiratory rate is 20. O2 saturation is 97%. GENERAL: He is orally intubated. He has NG tube in place. He is getting 75 mL of Glucerna. No residuals. LUNGS: Breath sounds somewhat diminished at both bases. HEART: S1, S2 normal. No S3. No S4. ABDOMEN: Soft and nondistended. Bowel sounds are present. EXTREMITIES: No clubbing, cyanosis, or edema. LABORATORY DATA: White count of 18.7, hemoglobin 9.7, hematocrit 30.2, platelet count 198. Sodium of 134, potassium 3.1, chloride 103, CO2 of 24, BUN 27, creatinine 1.20, glycemia is ranging from 219 to 271, phosphorus 2.7, magnesium 1.7. Urine culture, negative. Respiratory culture, final, 0 to 5 epithelial cells in large power field, few wbc's, rare gram-positive cocci chains, few normal respiratory abad present as a final result. IMPRESSION: 1. Intracerebral hemorrhage. 2. Atrial fibrillation. 3. Respiratory failure. 4. Uncontrolled diabetes mellitus. 5. Coronary artery disease. 6. Status post coronary artery bypass grafting. PLAN: He is on aggressive sliding scale every 6 hours coverage plus 14 units of insulin glargine twice a day and his glycemia is ranging still above 200, so I am going to increase his glargine dose to 20 units twice a day plus aggressive sliding scale every 6 hours. He is going to continue his Glucerna at 75 mL/h, and will continue his current regimen as per primary admitting team. Job ID: [id number]
[2018-04-30] MEDS ORDERED: Magnesium 2 GM/50 ML 2 GM in Premix Bag 1 BAG IVPB SCH (12:45)
--- NOTE | 2018-04-30 12:55 | PRG ---
DATE OF SERVICE: 04/30/2018 SERVICE: Pulmonary Medicine. INTERVAL HISTORY: The patient is breathing fine. No overnight events were occurred. He continues to have significant secretions and have a frothy pink appearance to them. There is also a little bit of texture to it. PHYSICAL EXAMINATION: VITAL SIGNS: Afebrile with a T-max of 100.6 overnight. Pulse 68, blood pressure 150/71, respirations are 25, and saturation 98% on 21% FiO2 and a PEEP of 5. GENERAL: The patient is intubated. He has been on no sedation for several days. HEENT: Normocephalic and atraumatic. Sclerae white. Conjunctivae pink. Oral mucosa is moist without lesions. LUNGS: Decent air entry. Rhonchi are present. There is no prolonged expiratory phase or wheezing appreciated. HEART: Normal rate and regular. ABDOMEN: Soft, nontender, and nondistended. Bowel sounds are positive. MUSCULOSKELETAL: No cyanosis or clubbing. He does have 1+ pitting in the upper extremities. : Schilling catheter in place. NEUROLOGIC: Dense right-sided hemiplegia is present. He spontaneously opens his eyes and attends. He is moving his left lower extremity and eyes with command. He is not moving his left upper extremity or his right side to command. He will spontaneously move his left upper extremity. Pupils are equal, round, and reactive. He is comfortably breathing over the ventilator and demonstrates an improving cough. LABORATORY DATA: WBC 18.7 and uptrending, hemoglobin 9.7, and platelets are 198,000. INR 1.6. Creatinine 1.20, and roughly stable, magnesium and phosphorus falls within normal limits. Potassium 3.1. Sodium 134 and downtrending. ASSESSMENT: 1. Respiratory failure secondary to inability to protect airway. 2. Intraparenchymal hemorrhage, large. 3. Acute kidney injury, resolved. 4. Chronic systolic heart failure (EF 20%). 5. Coronary bypass graft, recent. DISCUSSION AND PLAN: The patient remains stable from a neurologic perspective. I will replace potassium today. The family is still trying to decide whether or not to move forward with tracheostomy and PEG tube versus transitioning over to comfort care only. The patient's has clearly told us that he would not want a tracheostomy and PEG tube placement because he would not want to live in a permanently debilitated state. That being said, his children are pushing the very hard to be more aggressive with care. In the meantime, we will continue our supportive measures. If he fevers above 101, panculture will be repeated. Critical care time: 30 minutes. Job ID: [id number] MTDD
[2018-04-30] MEDS ORDERED: Potassium Chloride 20 MEQ TAB PO SCH (13:00)
[2018-04-30] MEDS ORDERED: Insulin Glargine 20 UNITS in Pre-Filled Syringe 1 EACH SC SCH (21:00)
[2018-05-01] MEDS: Labetalol HCl 100 MG/20 ML VIAL SLOW IVP PRN ×2 (04:35→09:14)
[2018-05-01] MEDS: HumaLOG 300 UNITS/3 ML VIAL SC PRN ×5 (04:40→22:45)
[2018-05-01] MEDS: Levothyroxine Sodium 50 MCG TAB PO SCH (06:07)
[2018-05-01] MEDS: hydrALAZINE 20 MG/ML VIAL SLOW IVP PRN ×2 (06:19→12:10)
[2018-05-01] MEDS: Rosuvastatin 20 MG TAB PO SCH (07:55)
[2018-05-01] MEDS: Lisinopril 5 MG TAB PO SCH (07:55)
[2018-05-01] MEDS: Amiodarone 200 MG TAB PO SCH ×2 (07:55→22:44)
[2018-05-01] MEDS: Metoprolol Tartrate 25 MG TAB PER TUBE SCH ×2 (07:55→22:44)
[2018-05-01] MEDS: Famotidine/PF 20 mg/2ml Vial SLOW IVP SCH ×2 (07:56→22:44)
[2018-05-01] MEDS: Amlodipine 10 MG TAB PO SCH (07:56)
--- NOTE | 2018-05-01 08:22 | PRG ---
DATE OF SERVICE: 05/01/2018 PULMONARY/CRITICAL CARE PROGRESS NOTE SUBJECTIVE: The patient remains intubated in the CCU. There have been no acute changes overnight. OBJECTIVE: VITAL SIGNS: Temperature 98.1, pulse 84, blood pressure 184/84, O2 saturation 99%. Total intake for the last 24 hours 1698, output 1029. NEUROLOGIC: He will not respond to voice or stimuli. HEENT: Pupils are 5 mm and very sluggishly reactive if at all. He has an orotracheal tube in place. NECK: Without adenopathy or JVD. LUNGS: Clear anteriorly. CARDIAC: S1 and S2, regular without audible murmur. ABDOMEN: Soft and nontender. EXTREMITIES: No clubbing, cyanosis, or edema. LABORATORY DATA: No new labs were done today. ASSESSMENT: 1. Acute respiratory failure requiring mechanical ventilation. 2. Comatose state from intraparenchymal hemorrhage. 3. Acute kidney injury, which is better. 4. Chronic systolic heart failure with ejection fraction 20%. 5. Recent coronary artery bypass grafting surgery. PLAN: This patient's neurologic status remains very poor. The family is trying to make a decision about whether to proceed with tracheostomy and PEG tube measures, which would be necessary for continued nursing care. I think one can make an argument that extubation and palliative measures might be the best way to proceed. I have reviewed the orders. I do not see any acute changes that are necessary. I will order lab testing for tomorrow. Critical Care time on this patient was 30 minutes. Job ID: [id number]
[2018-05-01] MEDS ORDERED: Insulin Glargine 20 UNITS in Pre-Filled Syringe 1 EACH SC SCH (09:00)
--- NOTE | 2018-05-01 14:50 | PRG ---
DATE OF SERVICE: 05/01/2018 SUBJECTIVE: The patient is seen and examined at the bedside. He is seen still in the ICU A5. He is not sedated. He is intubated. There is quite minimal response from him. His is present during my visit in the room. She understands the severity of the problem he has. OBJECTIVE: VITAL SIGNS: Blood pressure is 118/54, pulse is 79, respiratory rate is 26, O2 saturation 99% on the ventilator. He is orally intubated. LUNGS: Shows somewhat diminished breath sounds at both bases. HEART: S1 and S2 normal. No S3. No S4. ABDOMEN: Soft and nondistended. EXTREMITIES: No clubbing, cyanosis, or edema. NEUROLOGIC: He does not show much improvement since yesterday. His extremities are flaccid. LABORATORY DATA: Glycemia is ranging from 240 to 315. IMPRESSION: 1. Acute respiratory failure, requiring mechanical ventilation. 2. Intraparenchymal hemorrhage. 3. Chronic systolic heart failure with low LVEF. 4. Uncontrolled diabetes mellitus and despite of my increase of his regimen, his glycemia is going up. 5. Status post coronary artery bypass grafting. 6. Coronary artery disease. I will review his medications to make sure he is not getting anything to increase his glycemia. In the meantime, I am going to increase the dose to 24 units of insulin Lantus twice a day and will intensify the treatment. Job ID: [id number]
--- NOTE | 2018-05-01 17:28 | PDOC.CTH ---
Cardiology Progress Note - Subjective Remains intubated. Non responsive on no sedation. - Objective Vital Signs Temp Pulse Resp BP 05/01/18 17:00 98.4 F 05/01/18 16:00 25 H 05/01/18 14:50 75 122/57 L 05/01/18 14:00 28 H 05/01/18 12:00 26 H 05/01/18 11:00 99.5 F 05/01/18 10:35 67 152/66 H 05/01/18 10:00 22 H 05/01/18 08:00 100.3 F H 23 H 05/01/18 06:32 82 198/87 H 05/01/18 06:19 70 198/87 H 05/01/18 06:00 20 Admit Weight 173 lb Weight 176 lb 12.972 oz 04/30/18 05/01/18 05/02/18 06:59 06:59 06:59 Intake Total 1698 2349 1100 Output Total 1029 1755 1060 Balance 669 594 40 - Physical Examination General/Neuro: other: (S/I) Neck: no JVD present Lungs: unlabored respirations Heart: RRR Abdomen: NT/ND Extremities: other: (no edema) - Telemetry Telemetry Rhythm: NSR - Labs Result Diagrams: 04/30/18 06:28 04/30/18 06:28 Troponin/CKMB CK-MB (CK-2) 2.9 ng/mL (0-6.6) 04/23/18 09:36 Troponin I 0.022 ng/mL (< 0.028) 04/23/18 09:36 - Assessment/Plan 1. Large ICH 2. CAD 3. s/p CABG 4. 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
[2018-05-01] MEDS ORDERED: Insulin Glargine 30 UNITS in Pre-Filled Syringe 1 EACH SC SCH (21:00)
[2018-05-02 05:21] VITALS: BMI 25.0
[2018-05-02] MEDS: Levothyroxine Sodium 50 MCG TAB PO SCH (05:44)
[2018-05-02] MEDS: HumaLOG 300 UNITS/3 ML VIAL SC PRN (05:44)
[2018-05-02 08:04] LABS: Anion Gap 12 mmol/L (10-20); BUN (Urea Nitrogen) 33 mg/dL (8.4-25.7); Calc. Creatinine Clearance 53 mL/min (70-130); Carbon Dioxide 23 mmol/L (23-31); Chloride 110 mmol/L (98-107); Estimated GFR-MDRD 48; Glucose 238 mg/dL (83-110); Potassium 4.7 mmol/L (3.5-5.1); Sodium 140 mmol/L (136-145)
--- NOTE | 2018-05-02 08:45 | PRG ---
DATE OF SERVICE: 05/02/2018 SUBJECTIVE: This morning intubated on the vent, remains pretty much unresponsive. OBJECTIVE: VITAL SIGNS: Blood pressure is 123/52, pulse is 76, respiratory rate is 18, saturations are 99%. CHEST: Anterior rhonchi. CARDIAC: Normal S1, S2. No gallops. ABDOMEN: Soft without any masses. LABORATORY DATA: Creatinine 1.44. IMPRESSION: 1. Status post intracerebral hemorrhage. 2. Recent coronary artery bypass grafting. 3. Atrial fibrillation. 4. Family to consider withdrawal of care today, be extubated, and comfort care. PROGNOSIS: Grave. TIME: One-half hour critical time. One-half hour critical time and decreased. Job ID: [id number]
[2018-05-02] MEDS ORDERED: Insulin Glargine 30 UNITS in Pre-Filled Syringe 1 EACH SC SCH (09:00)
[2018-05-02 09:03] LABS: Band 1 % (5-11); Eosinophils 2 % (0-10); Hemoglobin 11.7 g/dL (14.0-18.0); Large Platelets SLIGHT; Lymphocytes 6 % (21-51); MDiff Complete? YES; Mean Corpuscular HGB CONC 33.4 g/dL (32.0-36.0); Mean Corpuscular Hemoglobin 30.3 pg (27.0-31.0); Mean Corpuscular Volume 90.7 fL (78.0-98.0); Mean Platelet Volume 8.6 fL (7.4-10.4); Monocytes 8 % (0-10); Neutrophil 83 % (42-75); Platelet Count 319 thou/uL (130-400); Platelet Morphology Comment Appears Adequate; RBC Distribution Width 15.8 % (11.5-14.5); Red Blood Cell (RBC) Count 3.84 mill/uL (4.70-6.10); White Blood Cell (WBC) Count 21.6 thou/uL (4.8-10.8)
[2018-05-02] MEDS: Amiodarone 200 MG TAB PO SCH (09:22)
[2018-05-02] MEDS: Rosuvastatin 20 MG TAB PO SCH (09:22)
[2018-05-02] MEDS: Lisinopril 5 MG TAB PO SCH (09:22)
[2018-05-02] MEDS: Famotidine/PF 20 mg/2ml Vial SLOW IVP SCH (09:22)
[2018-05-02 09:23] VITALS: BP 123/50
[2018-05-02] MEDS: Metoprolol Tartrate 25 MG TAB PER TUBE SCH (09:23)
[2018-05-02] MEDS: Amlodipine 10 MG TAB PO SCH (09:23)
[2018-05-02 10:11] VITALS: TEMP 98.4
[2018-05-02] MEDS ORDERED: Morphine 10 MG/ML VIAL SLOW IVP PRN ×2 (10:33→11:39)
[2018-05-02] MEDS ORDERED: Lorazepam 2 MG/ML VIAL SLOW IVP PRN (10:34)
--- NOTE | 2018-06-15 13:29 | DIS ---
DATE OF ADMISSION: 04/23/2018 DATE OF DISCHARGE: 05/03/2018 SUMMARY HOSPITAL COURSE: Mr. Damian was a 72-year-old man, who was admitted to [facility] in the ICU on April 23, 2018, by Dr. Michael Villanueva in the setting of large left-sided intracerebral hemorrhage in the frontotemporal region with significant mass effect at midline causing 1.5 cm of midline shift in the setting of anticoagulation therapy with Coumadin with an INR of 2.4. He was reversed immediately upon arrival. He was intubated and transferred to the ICU. Consultations were ordered to Cardiology, Hospitalist Service, and Pulmonary/Critical Care. The course of this hospital stay was one of gradual degradation from an already poor neurological examination. Repeat imaging was ordered in the form of brain CT scanning revealing stable hemorrhage and stable midline shift. Medications were started including mannitol, and ultimately, nonsurgical management was recommended given the size of the hemorrhage and grave nature. His examination never improved, and ultimately, on May 02, 2018, the patient was terminally extubated per the family's wishes, and he soon thereafter. Job ID: [id number]
== END 2018-05-03 04:01 | disposition expired | DRG 64 ==
LOC: ERS 09:29 → CCU 11:51 → ONC 05-02 13:12
PROVIDERS: ADMIT Internal Medicine; ATTEND Internal Medicine
PROC: 0BH17EZ Insertion of Endotracheal Airway into Trachea, Via Natural or Artificial Opening (ICD-10-PCS; principal; 2018-04-23)
PROC: 5A1955Z Respiratory Ventilation, Greater than 96 Consecutive Hours (ICD-10-PCS; 2018-04-23)
PROC: 0DH67UZ Insertion of Feeding Device into Stomach, Via Natural or Artificial Opening (ICD-10-PCS; 2018-04-30)
PROC: 3E0G76Z Introduction of Nutritional Substance into Upper GI, Via Natural or Artificial Opening (ICD-10-PCS; 2018-04-30)
DX: I61.9 Nontraumatic intracerebral hemorrhage, unspecified (principal); G93.5 Compression of brain; J96.00 Acute respiratory failure, unspecified whether with hypoxia or hypercapnia; R47.01 Aphasia; I50.22 Chronic systolic (congestive) heart failure; I42.0 Dilated cardiomyopathy; D68.32 Hemorrhagic disorder due to extrinsic circulating anticoagulants; N17.9 Acute kidney failure, unspecified; E11.9 Type 2 diabetes mellitus without complications; E78.5 Hyperlipidemia, unspecified; T45.515A Adverse effect of anticoagulants, initial encounter; D72.829 Elevated white blood cell count, unspecified; I48.0 Paroxysmal atrial fibrillation; I11.0 Hypertensive heart disease with heart failure; R40.2433 Glasgow coma scale score 3-8, at hospital admission; E03.9 Hypothyroidism, unspecified; Z66 Do not resuscitate; I25.10 Atherosclerotic heart disease of native coronary artery without angina pectoris; Z79.4 Long term (current) use of insulin; Z79.01 Long term (current) use of anticoagulants; Z79.82 Long term (current) use of aspirin; Z95.1 Presence of aortocoronary bypass graft; Z95.5 Presence of coronary angioplasty implant and graft
CPT/HCPCS: 31500; 36415; 36416; 51703; 70450; 71045; 80048; 80053; 81003; 82553; 82805; 83735; 83930; 84100; 84484; 85025; 85610; 85730; 86850; 86900; 86901; 87070; 87086; 87205; 93005; 94002; 94003; 94760; 96365; 96366; 96368; 96375; 96376; 99292; C9132; J0131; J0282; J0360; J0461; J1100; J1825; J1956; J2150; J2704; J3430; J7050; J7070; J7799; S0028